=== PATIENT | female | born 1955 | race African-American/Black ===

== ENCOUNTER → 2016-07-08 | Outpatient (CLI) | payer MEDICARE, MEDICAID | LOC: SP 13:33 | PROVIDERS: ATTEND Physician Assistant | DX: M79.661 Pain in right lower leg (principal); M19.042 Primary osteoarthritis, left hand; M19.041 Primary osteoarthritis, right hand | CPT/HCPCS: 93971 ==

== ENCOUNTER 2016-12-26 11:44 | Emergency (ER) | payer MEDICARE, MEDICAID ==
--- NOTE | 2016-12-26 12:12 | ER Document Report ---
ED General - General Chief Complaint: Cough Stated Complaint: COUGH Time Seen by Provider: 12/26/16 11:58 Mode of Arrival: Ambulatory Information source: Patient Notes: 61-year-old female presents with complaints of a cough for day duration. Patient admits to fevers and chills. Patient denies any nausea vomiting or diarrhea. pt ntoes cough is non prodcutve, no sick contact. pt denies any any smoking hx admits to ear pain TRAVEL OUTSIDE OF THE [place] IN LAST 30 DAYS: No - HPI Onset: Other Onset/Duration: Persistent Quality of pain: Achy Severity: Mild Pain Level: 1 Associated symptoms: Chills, Nonproductive cough, Fever Exacerbated by: Coughing Relieved by: Denies Similar symptoms previously: No Recently seen / treated by doctor: No - Related Data Allergies/Adverse Reactions: acetaminophen [From Tylenol] Allergy (Verified 12/26/16 11:49) ibuprofen Allergy (Verified 12/26/16 11:49) naproxen Allergy (Verified 12/26/16 11:49) oxycodone Allergy (Verified 12/26/16 11:49) Past Medical History - Social History Smoking Status: Never Smoker Cigarette use (# per day): No Chew tobacco use (# tins/day): No Smoking Education Provided: No Family History: Reviewed & Not Pertinent Renal/ Medical History: Denies: Hx Peritoneal Dialysis Review of Systems - Review of Systems Notes: REVIEW OF SYSTEMS: CONSTITUTIONAL : admits ot fevers and chills EENT: admits to ear pain CARDIOVASCULAR: Denies chest pain. Denies palpitations or racing or irregular heart beat. Denies ankle edema. RESPIRATORY: admits to cough GASTROINTESTINAL: Denies abdominal pain or distention. Denies nausea, vomiting , or diarrhea. Denies blood in vomitus, stools, or per rectum. Denies black, tarry stools. Denies constipation. GENITOURINARY: Denies difficulty urinating, painful urination, burning, frequency, blood in urine, or discharge. FEMALE GENITOURINARY: Denies vaginal bleeding, heavy or abnormal periods, irregular periods. Denies vaginal discharge or odor. MUSCULOSKELETAL: Denies back or neck pain or stiffness. Denies joint pain or swelling. SKIN: Denies rash, lesions or sores. HEMATOLOGIC : Denies easy bruising or bleeding. LYMPHATIC: Denies swollen, enlarged glands. NEUROLOGICAL: Denies confusion or altered mental status. Denies passing out or loss of consciousness. Denies dizziness or lightheadedness. Denies headache. Denies weakness or paralysis or loss of use of either side. Denies problems with gait or speech. Denies sensory loss, numbness, or tingling. Denies seizures. PSYCHIATRIC: Denies anxiety or stress. Denies depression, suicidal ideation, or homicidal ideation. ALL OTHER SYSTEMS REVIEWED AND NEGATIVE. PHYSICAL EXAMINATION: GENERAL: Well-appearing, well-nourished and in no acute distress. HEAD: Atraumatic, normocephalic. EYES: Pupils equal round and reactive to light, extraocular movements intact, conjunctiva are normal. ENT: Nares patent, oropharynx clear without exudates. Moist mucous membranes. NECK: Normal range of motion, supple without lymphadenopathy LUNGS: Breath sounds clear to auscultation bilaterally and equal. No wheezes rales or rhonchi. HEART: Regular rate and rhythm without murmurs ABDOMEN: Soft, nontender, nondistended abdomen. No guarding, no rebound. No masses appreciated. Female : deferred Musculoskeletal: Normal range of motion, no pitting or edema. No cyanosis. NEUROLOGICAL: Cranial nerves grossly intact. Normal speech, normal gait. Normal sensory, motor exams PSYCH: Normal mood, normal affect. SKIN: Warm, Dry, normal turgor, no rashes or lesions noted. Dictation was performed using Mtime voice recognition software Physical Exam - Vital signs Vitals: Temp Pulse Resp BP Pulse Ox 97.5 F 79 20 117/73 98 12/26/16 11:51 12/26/16 11:51 12/26/16 11:51 12/26/16 11:51 12/26/16 11:51 Course - Re-evaluation Re-evalutation: 12/26/16 12:12 lab work imaging pending 12/26/16 13:23 xray and influenza were negative, I bleeive patients presentation is more related to a viral syndrome. Pt denies any chest pain, notes her symptoms are related to cough, denies any dvt or pe risk factors After performing a Medical Screening Examination, I estimate there is LOW risk for ACUTE CORONARY SYNDROME, RESPIRATORY FAILURE, SEPSIS OR MENINGITIS, thus I consider the discharge disposition reasonable. I have reevaluated this patient multiple times and no significant life threatening changes are noted. The patient and I have discussed the diagnosis and risks, and we agree with discharging home with close follow-up. We also discussed returning to the Emergency Department immediately if new or worsening symptoms occur. We have discussed the symptoms which are most concerning (e.g., changing or worsening pain, trouble swallowing or breathing, neck stiffness, fever) that necessitate immediate return. - Vital Signs Vital signs: Temp Pulse Resp BP Pulse Ox 97.5 F 79 20 117/73 98 12/26/16 11:51 12/26/16 11:51 12/26/16 11:51 12/26/16 11:51 12/26/16 11:51 - Diagnostic Test Radiology reviewed: Image reviewed, Reports reviewed Discharge - Discharge Clinical Impression: Viral URI, Bronchitis Condition: Stable Disposition: HOME, SELF-CARE Instructions: Upper Respiratory Illness ([facility]) Additional Instructions: Follow up with your physician tomorrow for further care or return to the ED IMMEDIATELY if symptoms worsen or new concerns occur. If you cannot afford to follow up with your primary care physician a list of low cost clinics have been provided at the end of your discharge papers as well.
--- NOTE | 2016-12-26 12:29 | RADIOLOGY REPORT (SQ) ---
EXAM DESCRIPTION: CHEST PA/LAT COMPLETED DATE/TIME: 12/26/2016 12:15 pm REASON FOR STUDY: cough COMPARISON: None. EXAM PARAMETERS: NUMBER OF VIEWS: two views TECHNIQUE: Digital Frontal and Lateral radiographic views of the chest acquired. RADIATION DOSE: NA LIMITATIONS: Patient has made a shallow inspiration. FINDINGS: LUNGS AND PLEURA: No opacities, masses or pneumothorax. No pleural effusion. MEDIASTINUM AND HILAR STRUCTURES: No masses or contour abnormalities. HEART AND VASCULAR STRUCTURES: Cardiac silhouette is at the upper limits of normal in size. Tortuous thoracic aorta is identified. BONES: No acute findings. HARDWARE: None in the chest. OTHER: No other significant finding. IMPRESSION: NO SIGNIFICANT RADIOGRAPHIC FINDING IN THE CHEST. TECHNICAL DOCUMENTATION: JOB ID: [id number] [email or web address]- All Rights Reserved
[2016-12-26 13:40] VITALS: BP 132/78
== END 2016-12-26 13:40 | disposition home or self-care (01) ==
LOC: ER 11:44
DX: J06.9 Acute upper respiratory infection, unspecified (principal); J40 Bronchitis, not specified as acute or chronic; R50.9 Fever, unspecified; Z88.6 Allergy status to analgesic agent
CPT/HCPCS: 71020; 87804; 99284

== ENCOUNTER 2017-07-18 16:29 | Emergency (ER) | payer MEDICARE, MEDICAID ==
[2017-07-18 17:52] LABS: ABSOLUTE LYMPHOCYTES (AUTO) 1.3 10^3/uL (0.5-4.7); ABSOLUTE MONOCYTES (AUTO) 0.3 10^3/uL (0.1-1.4); ABSOLUTE NEUT (AUTO) 3.3 10^3/uL (1.7-8.2); BASOPHILS % (AUTO) 0.7 % (0-2); EOSINOPHILS % (AUTO) 0.5 % (0-6); HEMATOCRIT 41.6 % (36.0-47.0); HEMOGLOBIN 13.4 g/dL (12.0-15.5); LYMPHOCYTES % (AUTO) 26.8 % (13-45); MEAN CORPUSCULAR HGB CONC 32.2 g/dL (32.0-36.0); MEAN CORPUSCULAR VOLUME 87 fl (80-97); MONOCYTES % (AUTO) 5.4 % (3-13); PLATELET COUNT 193 10^3/uL (150-450); RED BLOOD COUNT 4.78 10^6/uL (3.72-5.28); RED CELL DISTRIBUTION WIDTH 13.9 % (11.5-14.0); SEGMENTED NEUTROPHILS % (AUTO) 66.6 % (42-78); TOTAL CELLS COUNTED % (AUTO) 100 %
--- NOTE | 2017-07-18 18:03 | RADIOLOGY REPORT (SQ) ---
EXAM DESCRIPTION: CHEST 2 VIEWS COMPLETED DATE/TIME: 07/18/2017 5:48 pm REASON FOR STUDY: cough COMPARISON: 12/26/2016. EXAM PARAMETERS: NUMBER OF VIEWS: two views TECHNIQUE: Digital Frontal and Lateral radiographic views of the chest acquired. RADIATION DOSE: NA LIMITATIONS: none FINDINGS: LUNGS AND PLEURA: No opacities, masses or pneumothorax. No pleural effusion. MEDIASTINUM AND HILAR STRUCTURES: No masses or contour abnormalities. HEART AND VASCULAR STRUCTURES: Heart upper limits of normal size. No evidence for failure. BONES: No acute findings. HARDWARE: None in the chest. OTHER: No other significant finding. IMPRESSION: NO ACUTE RADIOGRAPHIC FINDING IN THE CHEST. TECHNICAL DOCUMENTATION: JOB ID: [id number] [employer]- All Rights Reserved Reading location - IP/workstation name: [email or web address]
[2017-07-18 18:13] LABS: ANION GAP 11 (5-19); BLOOD UREA NITROGEN 17 mg/dL (7-20); CALCIUM 9.7 mg/dL (8.4-10.2); CARBON DIOXIDE 25 mmol/L (22-30); CHLORIDE 105 mmol/L (98-107); GLUCOSE 84 mg/dL (75-110)
--- NOTE | 2017-07-18 18:37 | ER Document Report ---
ED General - General Chief Complaint: Headache Stated Complaint: HEADACHE/COUGH Time Seen by Provider: 07/18/17 17:01 Mode of Arrival: Ambulatory Information source: Patient Notes: Patient states for 1 week she has had a headache. It is constant throbbing radiates into her posterior neck. Nothing makes it better or worse. It is moderate. It has been intermittent. She also had cough and some congestion. TRAVEL OUTSIDE OF THE [place] IN LAST 30 DAYS: No - Related Data Allergies/Adverse Reactions: ibuprofen Allergy (Verified 07/18/17 16:30) naproxen Allergy (Verified 07/18/17 16:30) oxycodone Allergy (Verified 07/18/17 16:30) Past Medical History - Social History Smoking Status: Never Smoker Frequency of alcohol use: None Drug Abuse: None Family History: Reviewed & Not Pertinent Patient has suicidal ideation: No Patient has homicidal ideation: No - Past Medical History Cardiac Medical History: Reports: Hx Hypercholesterolemia, Hx Hypertension Pulmonary Medical History: Reports: Hx Asthma Neurological Medical History: Reports: Hx Seizures Renal/ Medical History: Denies: Hx Peritoneal Dialysis Past Surgical History: Reports: Hx Cholecystectomy Review of Systems - Review of Systems Constitutional: denies: Chills, Fever Cardiovascular: denies: Chest pain, Palpitations Respiratory: Cough. denies: Short of breath -: Yes All other systems reviewed and negative Physical Exam - Vital signs Vitals: Temp Pulse Resp BP Pulse Ox 98.2 F 79 16 124/55 L 97 07/18/17 16:35 07/18/17 16:35 07/18/17 16:35 07/18/17 16:35 07/18/17 16:35 Interpretation: Normal - General General appearance: Appears well, Alert - HEENT Head: Normocephalic, Atraumatic Eyes: Normal Pupils: PERRL - Respiratory Respiratory status: No respiratory distress Chest status: Nontender Breath sounds: Normal Chest palpation: Normal - Cardiovascular Rhythm: Regular Heart sounds: Normal auscultation Murmur: No - Abdominal Inspection: Normal Distension: No distension Bowel sounds: Normal Tenderness: Nontender Organomegaly: No organomegaly - Back Back: Normal, Nontender - Extremities General upper extremity: Normal inspection, Nontender, Normal color, Normal ROM , Normal temperature General lower extremity: Normal inspection, Nontender, Normal color, Normal ROM , Normal temperature, Normal weight bearing. No: Telma's sign - Neurological Neuro grossly intact: Yes Cognition: Normal Orientation: AAOx4 [place] Coma Scale Eye Opening: Spontaneous [place] Coma Scale Verbal: Oriented Tho Coma Scale Motor: Obeys Commands [place] Coma Scale Total: 15 Speech: Normal Motor strength normal: LUE, RUE, LLE, RLE Sensory: Normal - Psychological Associated symptoms: Normal affect, Normal mood - Skin Skin Temperature: Warm Skin Moisture: Dry Skin Color: Normal Course - Vital Signs Vital signs: Temp Pulse Resp BP Pulse Ox 98.2 F 79 16 124/55 L 97 07/18/17 16:35 07/18/17 16:35 07/18/17 16:35 07/18/17 16:35 07/18/17 16:35 - Laboratory Result Diagrams: 07/18/17 17:40 07/18/17 17:40 - Diagnostic Test Radiology reviewed: Image reviewed, Reports reviewed - I reviewed both views of the chest x-ray. As well as the radiology reading. Radiology results interpreted by me: 07/18/17 18:36 I reviewed both views of the patient's chest x-ray. I also reviewed the radiology reading. No evidence of infiltrate or edema. Discharge - Discharge Bad tableCondition: Stable Disposition: HOME, SELF-CARE Instructions: Viral Syndrome ([facility]) Prescriptions: Codeine/Promethazine HCl [Promethazine-Codeine Syrup] 10 ml PO Q4 PRN 5 Days #1 bottle PRN Reason: Referrals: SIDDHARTHA GAMEZ PA-C [Primary Care Provider] - Follow up as needed
[2017-07-18 19:48] VITALS: BP 153/101
== END 2017-07-18 19:02 | disposition home or self-care (01) ==
LOC: ER 16:29
DX: B34.9 Viral infection, unspecified (principal); R51 Headache; E78.00 Pure hypercholesterolemia, unspecified; I10 Essential (primary) hypertension; Z88.6 Allergy status to analgesic agent; Z90.49 Acquired absence of other specified parts of digestive tract
CPT/HCPCS: 36415; 71046; 80048; 85025; 99284

== ENCOUNTER 2017-09-24 13:30 | Emergency (ER) | payer MEDICARE, MEDICAID ==
[2017-09-24 13:36] VITALS: BP 127/60
[2017-09-24] MEDS ORDERED: ACETAMINOPHEN 325 MG TABLET PO ONE (14:18)
--- NOTE | 2017-09-24 14:27 | ER Document Report ---
ED ENT - General Chief Complaint: Ear Pain Stated Complaint: EAR PAIN/HEADACHE Time Seen by Provider: 09/24/17 13:45 Mode of Arrival: Ambulatory Information source: Patient Notes: 62-year-old female presented ED with complaint of bilateral ear pain with headache and sinus congestion. Patient states she has had a cold for over a week. But she is just developed the pain in her ears the headache. She is alert and oriented pupils equal and react to light speaking with full sentences , respirations regular and unlabored, and walk with a even steady gait. TRAVEL OUTSIDE OF THE [place] IN LAST 30 DAYS: No - HPI Patient complains to provider of: Ear problem, Nose problem, Other - Headache Onset: Other - Cough and cold symptoms have been for about a week the bilateral ear pain started last night headache started today Quality of pain: Achy, Dull Severity: Severe Pain Level: 5 Context: Recent Illness Location of pain: Ears, Nose, Sinus, Throat Associated symptoms: Ear pain, Headache, Runny nose, Sinus pain, Sinus drainage , Sore throat. denies: Fever Similar symptoms previously: Yes Recently seen / treated by doctor: No - Related Data Allergies/Adverse Reactions: ibuprofen Allergy (Verified 09/24/17 13:32) naproxen Allergy (Verified 09/24/17 13:32) oxycodone Allergy (Verified 09/24/17 13:32) Past Medical History - General Information source: Patient - Social History Smoking Status: Never Smoker Cigarette use (# per day): No Chew tobacco use (# tins/day): No Smoking Education Provided: No Frequency of alcohol use: None Drug Abuse: None Lives with: Parents Family History: Reviewed & Not Pertinent Patient has suicidal ideation: No Patient has homicidal ideation: No - Past Medical History Cardiac Medical History: Reports: Hx Hypercholesterolemia, Hx Hypertension Pulmonary Medical History: Reports: Hx Asthma EENT Medical History: Reports: None Neurological Medical History: Reports: Hx Seizures Endocrine Medical History: Reports: Hx Hypothyroidism Renal/ Medical History: Reports: None Malignancy Medical History: Reports: None GI Medical History: Reports: Hx Colonoscopy Musculoskeltal Medical History: Reports Hx Arthritis, Reports Hx Musculoskeletal Deformity, Reports Hx Musculoskeletal Trauma Skin Medical History: Reports None Psychiatric Medical History: Reports: None Infectious Medical History: Reports: None Past Surgical History: Reports: Hx Cholecystectomy - Immunizations Immunizations up to date: Yes Review of Systems - Review of Systems Constitutional: Recent illness EENT: Ear pain, Nose congestion, Nose discharge, Sinus pressure, Sinus discharge , Throat pain Cardiovascular: No symptoms reported Respiratory: Cough Gastrointestinal: No symptoms reported Genitourinary: No symptoms reported Female Genitourinary: No symptoms reported Musculoskeletal: No symptoms reported Skin: No symptoms reported Hematologic/Lymphatic: No symptoms reported Neurological/Psychological: Headaches -: Yes All other systems reviewed and negative Physical Exam - Vital signs Vitals: Temp Pulse Resp BP Pulse Ox 99.3 F 96 20 127/60 H 97 09/24/17 13:35 09/24/17 13:35 09/24/17 13:35 09/24/17 13:35 09/24/17 13:35 Interpretation: Normal - General General appearance: Appears well, Alert - HEENT Head: Normocephalic, Atraumatic Eyes: Normal Pupils: PERRL Visual kidd normal: Yes Ears: Normal External canal: Normal Tympanic membrane: Normal Sinus: Frontal, Maxillary, Tenderness Nasal: Purulent discharge, Swelling Mouth/Lips: Normal Pharynx: Post nasal drainage. No: Erythema, Exudate, Peritonsillar abscess, Retropharyngeal abscess, Tonsillar hypertrophy, Uvular edema, Potential airway comprom. Neck: Normal - Respiratory Respiratory status: No respiratory distress Chest status: Nontender Breath sounds: Nonproductive cough Chest palpation: Normal - Cardiovascular Rhythm: Regular Heart sounds: Normal auscultation Murmur: No - Abdominal Inspection: Normal Distension: No distension Bowel sounds: Normal Tenderness: Nontender Organomegaly: No organomegaly - Back Back: Normal, Nontender - Extremities General upper extremity: Normal inspection, Nontender, Normal color, Normal ROM , Normal temperature General lower extremity: Normal inspection, Nontender, Normal color, Normal ROM , Normal temperature, Normal weight bearing. 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 Patient does not have any otitis media or otitis externa or any sinus infection. Patient does have a viral upper respiratory infection. After performing a Medical Screening Examination, I estimate there is LOW risk for ACUTE CORONARY SYNDROME, RESPIRATORY FAILURE, SEPSIS OR MENINGITIS, thus I consider the discharge disposition reasonable. I have reevaluated this patient multiple times and no significant life threatening changes are noted. The patient and I have discussed the diagnosis and risks, and we agree with discharging home with close follow-up. We also discussed returning to the Emergency Department immediately if new or worsening symptoms occur. We have discussed the symptoms which are most concerning (e.g., changing or worsening pain, trouble swallowing or breathing, neck stiffness, fever) that necessitate immediate return. - Vital Signs Vital signs: Temp Pulse Resp BP Pulse Ox 99.3 F 96 20 127/60 H 97 09/24/17 13:35 09/24/17 13:35 09/24/17 13:35 09/24/17 13:35 09/24/17 13:35 Discharge - Discharge Clinical Impression: Otalgia of left ear URI (upper respiratory infection) Qualifiers: URI type: unspecified URI Qualified Code(s): J06.9 - Acute upper respiratory infection, unspecified Condition: Stable Disposition: HOME, SELF-CARE Additional Instructions: UPPER RESPIRATORY ILLNESS: You have a viral infection of the respiratory passages -- a "cold." This common infection causes nasal congestion, drainage, and often sore throat and cough. It is highly contagious. The disease usually lasts about 10 to 14 days. There is no "cure" for the viral infection -- it must run its course. If there is a complication, such as bacterial infection in the nose, sinuses, middle ear, or bronchial tubes, antibiotics may be required. The antibiotics won't affect the virus. Drink plenty of fluids. A humidifier may help. An expectorant medication or decongestant may make you more comfortable. Use acetaminophen or ibuprofen for fever or aches. See the doctor if fever persists over two days, if there is any significant worsening of your symptoms, or if you simply fail to improve as expected. USE OF ACETAMINOPHEN (Tylenol): Acetaminophen may be taken for pain relief or fever control. It's much safer than aspirin, offering a wider range of "safe" dosages. It is safe during . Some brand names are Tylenol, Panadol, Datril, Anacin 3, Tempra, and Liquiprin. Acetaminophen can be repeated every four hours. The following are maximum recommended dosages: >89 pounds or adults 650 mg to 900 mg Acetaminophen can be repeated every four hours. Maximum dose not to exceed 4000 mg a day. As you have a history of high blood pressure you cannot take normal over-the- counter cold medications as these will elevate your blood pressure. Ibuprofen can also elevate your blood pressure. You will need to ask the pharmacist for Coricidin HB for your cough and cold symptoms. Flonase is another medication that can help your cough and cold symptoms I will write you a prescription for that. Salt and soda solution gargles will help to remove the postnasal drip from the back yet throat and reduce your coughing and making more comfortable. Salt and soda solution 1 quart of water 1 tablespoon of salt 1 teaspoon of baking soda Mixed 3 ingredients together and boil for 1 minute Placed in a covered quart jar Use 1/2 ounce of cold solution to gargle 3 times a day FOLLOW-UP CARE: If you have been referred to a physician for follow-up care, call the physician s office for an appointment as you were instructed or within the next two days. If you experience worsening or a significant change in your symptoms, notify the physician immediately or return to the Emergency Department at any time for re-evaluation. Prescriptions: Fluticasone Propionate [Flonase Nasal Sanger 50 Mcg/[place]anger 16 gm] 1 spray NASL Q12 #1 inhaler Forms: Elevated Blood Pressure Referrals: SIDDHARTHA GAMEZ PA-C [Primary Care Provider] - Follow up in 3-5 days
== END 2017-09-24 14:36 | disposition home or self-care (01) ==
LOC: ER 13:30
DX: J06.9 Acute upper respiratory infection, unspecified (principal); H92.03 Otalgia, bilateral; E78.00 Pure hypercholesterolemia, unspecified; I10 Essential (primary) hypertension; Z88.6 Allergy status to analgesic agent; Z90.49 Acquired absence of other specified parts of digestive tract
CPT/HCPCS: 99282; A9270

== ENCOUNTER 2017-10-28 13:20 | Emergency (ER) | payer MEDICARE, MEDICAID ==
[2017-10-28 13:26] VITALS: BP 147/63
[2017-10-28 13:51] LABS: APPEARANCE,URINE CLEAR; BILIRUBIN,URINE NEGATIVE (NEGATIVE); COLOR,URINE YELLOW; GLUCOSE, URINE NEGATIVE (NEGATIVE); KETONES,URINE NEGATIVE (NEGATIVE); LEUKOCYTE ESTERASE,URINE TRACE (NEGATIVE); NITRITE,URINE NEGATIVE (NEGATIVE); PROTEIN,URINE NEGATIVE (NEGATIVE); URINE SPECIFIC GRAVITY 1.011; UROBILINOGEN,URINE NEGATIVE mg/dL (<2.0)
--- NOTE | 2017-10-28 14:08 | ER Document Report ---
ED Neck/Back Problem - General Chief Complaint: Back Pain Stated Complaint: BACK PAIN Time Seen by Provider: 10/28/17 13:57 Mode of Arrival: Ambulatory Information source: Patient Notes: Chief complaint: Right upper back pain History of complain:( obtained from----patient) 8 years old female presents today with right upper back pain since this morning, having postnasal drip and tickling and coughing on and off since this morning 2. Denies any difficulty in breathing wheezing. Denies any fever chills or other constitutional symptoms. Denies any precordial chest pain. Onset: Since this morning Duration: Gradual onset Severity: Mild to moderate Quality: Sharp to dull pain Context: Unknown Exacerbating factor and relieving factors: Change of position of the shoulder on the right side increases the pain. REVIEW OF SYSTEMS: CONSTITUTIONAL : Denies fever, chills, or sweats. Denies recent illness. EENT: Denies eye, ear, throat, or mouth pain or symptoms. Denies nasal or sinus congestion or discharge. Denies throat, tongue, or mouth swelling or difficulty swallowing. CARDIOVASCULAR: Denies chest pain. Denies palpitations or racing or irregular heart beat. Denies ankle edema. RESPIRATORY: Denies cough, cold, or chest congestion. Denies shortness of breath, difficulty breathing, or wheezing. GASTROINTESTINAL: Denies distention. Denies nausea, vomiting, or diarrhea. Denies blood in vomitus, stools, or per rectum. Denies black, tarry stools. Denies constipation. GENITOURINARY: Denies difficulty urinating, painful urination, burning, frequency, blood in urine, or discharge. FEMALE GENITOURINARY: Denies vaginal bleeding, heavy or abnormal periods, irregular periods. Denies vaginal discharge or odor. MUSCULOSKELETAL: Denies back or neck pain or stiffness. Denies joint pain or swelling. SKIN: Denies rash, lesions or sores. HEMATOLOGIC : Denies easy bruising or bleeding. LYMPHATIC: Denies swollen, enlarged glands. NEUROLOGICAL: Denies confusion or altered mental status. Denies passing out or loss of consciousness. Denies dizziness or lightheadedness. Denies headache. Denies weakness or paralysis or loss of use of either side. Denies problems with gait or speech. Denies sensory loss, numbness, or tingling. Denies seizures. PSYCHIATRIC: Denies anxiety or stress. Denies depression, suicidal ideation, or homicidal ideation. ALL OTHER SYSTEMS REVIEWED AND NEGATIVE. PHYSICAL EXAMINATION: GENERAL: Well-appearing, well-nourished and in no acute distress. HEAD: Atraumatic, normocephalic. EYES: Pupils equal round and reactive to light, extraocular movements intact, conjunctiva are normal. ENT: Nares patent, oropharynx clear without exudates. Moist mucous membranes. NECK: Normal range of motion, supple without lymphadenopathy LUNGS: Breath sounds clear to auscultation bilaterally and equal. No wheezes rales or rhonchi. HEART: Regular rate and rhythm without murmurs ABDOMEN: Soft, nontender, nondistended abdomen. No guarding, no rebound. No masses appreciated. Examination of genitals-deferred Musculoskeletal: Sharp tenderness noted over the right shoulder region particularly paraspinal muscles of the thoracic region on the right side as well as scapular muscles. NEUROLOGICAL: Cranial nerves grossly intact. Normal speech, normal gait. Normal sensory, motor exams PSYCH: Normal mood, normal affect. SKIN: Warm, Dry, normal turgor, no rashes or lesions noted. Dictation was performed using [employer] voice recognition software TRAVEL OUTSIDE OF THE [place] IN LAST 30 DAYS: No - HPI Notes: Dictated - Related Data Allergies/Adverse Reactions: ibuprofen Allergy (Verified 10/28/17 13:53) naproxen Allergy (Verified 10/28/17 13:53) oxycodone Allergy (Verified 10/28/17 13:53) Past Medical History - General Information source: Patient - Social History Smoking Status: Never Smoker Cigarette use (# per day): No Chew tobacco use (# tins/day): No Smoking Education Provided: No Frequency of alcohol use: Rare Drug Abuse: None Lives with: Family Family History: Reviewed & Not Pertinent - Past Medical History Cardiac Medical History: Reports: Hx Hypercholesterolemia, Hx Hypertension Pulmonary Medical History: Reports: Hx Asthma Neurological Medical History: Reports: Hx Seizures Endocrine Medical History: Reports: Hx Hypothyroidism Renal/ Medical History: Denies: Hx Peritoneal Dialysis GI Medical History: Reports: Hx Colonoscopy Musculoskeletal Medical History: Reports Hx Arthritis, Reports Hx Musculoskeletal Deformity, Reports Hx Musculoskeletal Trauma Past Surgical History: Reports: Hx Cholecystectomy - Immunizations Immunizations up to date: Yes Review of Systems - Review of Systems Notes: Dictated Physical Exam - Vital signs Vitals: Temp Pulse Resp BP Pulse Ox 97.6 F 76 18 147/63 H 98 10/28/17 13:25 10/28/17 13:25 10/28/17 13:25 10/28/17 13:25 10/28/17 13:25 - Notes Notes: Dictated Course - Vital Signs Vital signs: Temp Pulse Resp BP Pulse Ox 97.6 F 76 18 147/63 H 98 10/28/17 13:25 10/28/17 13:25 10/28/17 13:25 10/28/17 13:25 10/28/17 13:25 - Laboratory Laboratory results interpreted by me: 10/28/17 13:28 Ur Leukocyte Esterase TRACE H Discharge - Discharge Clinical Impression: Post-nasal drip, Upper back pain on right side Condition: Fair Disposition: HOME, SELF-CARE Instructions: Ice Packs ([facility]), Muscle Strain ([facility]) Prescriptions: Baclofen [Baclofen 10 mg Tablet] 10 mg PO TID #30 tab Prednisone 20 mg PO DAILY #5 tablet Referrals: SIDDHARTHA GAMEZ PA-C [Primary Care Provider] - Follow up as needed
== END 2017-10-28 14:18 | disposition home or self-care (01) ==
LOC: ER 13:20
DX: M54.89 Other dorsalgia (principal); R09.82 Postnasal drip; R05 Cough; I10 Essential (primary) hypertension; J45.909 Unspecified asthma, uncomplicated; Z88.6 Allergy status to analgesic agent; Z88.5 Allergy status to narcotic agent; Z88.8 Allergy status to other drugs, medicaments and biological substances
CPT/HCPCS: 81001; 99283

== ENCOUNTER 2017-12-25 13:28 | Emergency (ER) | payer MEDICARE, MEDICAID ==
--- NOTE | 2017-12-25 15:41 | ER Document Report ---
ED Medical Screen (RME) - General Chief Complaint: Headache >24 hrs old Stated Complaint: HEAD/NECK PAIN Time Seen by Provider: 12/25/17 15:39 Notes: Patient says that she is having a severe headache on the left side of her head that began last night while she was sitting in her house. She says it feels like a cinder block on her head. Pain goes down the back of her neck and she is having blurred vision in both eyes. Has never had this before. Denies any nausea or vomiting. No loss of consciousness. No recent illness and no fevers. Patient has a history of seizures since she was a little child. TRAVEL OUTSIDE OF THE [place] IN LAST 30 DAYS: No - Related Data Allergies/Adverse Reactions: aspirin [Aspirin] Allergy (Mild, Verified 12/25/17 15:33) Hives metaxalone [From Skelaxin] Allergy (Mild, Verified 12/25/17 15:33) Hallucinations morphine [Morphine] Allergy (Mild, Verified 12/25/17 15:33) Hallucinations oxycodone HCl [From Percocet] Allergy (Mild, Verified 12/25/17 15:33) Hallucinations ibuprofen Allergy (Verified 12/25/17 15:33) naproxen Allergy (Verified 12/25/17 15:33) oxycodone Allergy (Verified 12/25/17 15:33) Past Medical History - Social History Chew tobacco use (# tins/day): No Frequency of alcohol use: None Drug Abuse: None - Past Medical History Cardiac Medical History: Reports: Hx Hypercholesterolemia, Hx Hypertension - medicated Pulmonary Medical History: Reports: Hx Asthma - medicated prn, Hx Bronchitis Neurological Medical History: Reports: Hx Migraine, Hx Seizures Endocrine Medical History: Reports: Hx Hypothyroidism Renal/ Medical History: Denies: Hx Peritoneal Dialysis GI Medical History: Reports: Hx Colonoscopy, Hx Endoscopy Musculoskeltal Medical History: Reports Hx Arthritis, Reports Hx Musculoskeletal Deformity, Reports Hx Musculoskeletal Trauma Past Surgical History: Reports: Hx Cholecystectomy - Immunizations Immunizations up to date: Yes Hx Diphtheria, Pertussis, Tetanus Vaccination: Yes Physical Exam - Vital signs Vitals: Temp Pulse Resp BP Pulse Ox 97.4 F 69 16 143/67 H 100 12/25/17 14:08 12/25/17 14:08 12/25/17 14:08 12/25/17 14:08 12/25/17 14:08 Course - Vital Signs Vital signs: Temp Pulse Resp BP Pulse Ox 97.4 F 69 16 143/67 H 100 12/25/17 14:08 12/25/17 14:08 12/25/17 14:08 12/25/17 14:08 12/25/17 14:08 Doctor's Discharge - Discharge Referrals: SIDDHARTHA GAMEZ PA-C [Primary Care Provider] - Follow up as needed
[2017-12-25 16:44] LABS: ABSOLUTE EOSINOPHILS # (AUTO) 0.1 10^3/uL (0.0-0.6); ABSOLUTE LYMPHOCYTES (AUTO) 1.3 10^3/uL (0.5-4.7); ABSOLUTE MONOCYTES (AUTO) 0.2 10^3/uL (0.1-1.4); ABSOLUTE NEUT (AUTO) 1.7 10^3/uL (1.7-8.2); BASOPHILS % (AUTO) 0.8 % (0-2); EOSINOPHILS % (AUTO) 1.7 % (0-6); HEMATOCRIT 42.5 % (36.0-47.0); HEMOGLOBIN 13.9 g/dL (12.0-15.5); LYMPHOCYTES % (AUTO) 40.1 % (13-45); MEAN CORPUSCULAR HEMOGLOBIN 28.1 pg (27.0-33.4); MEAN CORPUSCULAR HGB CONC 32.7 g/dL (32.0-36.0); MEAN CORPUSCULAR VOLUME 86 fl (80-97); MONOCYTES % (AUTO) 5.3 % (3-13); PLATELET COUNT 195 10^3/uL (150-450); RED BLOOD COUNT 4.94 10^6/uL (3.72-5.28); RED CELL DISTRIBUTION WIDTH 14.2 % (11.5-14.0); SEGMENTED NEUTROPHILS % (AUTO) 52.1 % (42-78); TOTAL CELLS COUNTED % (AUTO) 100 %; WHITE BLOOD COUNT 3.3 10^3/uL (4.0-10.5)
--- NOTE | 2017-12-25 16:59 | RADIOLOGY REPORT (SQ) ---
EXAM DESCRIPTION: CT HEAD WITHOUT COMPLETED DATE/TIME: 12/25/2017 4:52 pm REASON FOR STUDY: Left sided headache with pain down the neck COMPARISON: None. TECHNIQUE: Axial images acquired through the brain without intravenous contrast. Images reviewed wi th bone, brain and subdural windows. Additional sagittal and coronal reconstructions were generated. Images stored on PACS. All CT scanners at this facility use dose modulation, iterative reconstruction, and/or weight based d osing when appropriate to reduce radiation dose to as low as reasonably achievable (ALARA). [facility]: Dose Right [facility]: CareDose [facility]: Dose Right [facility]: Teradose 4D [facility]: [employer] RADIATION DOSE: CT Rad equipment meets quality standard of care and radiation dose reduction techniq ues were employed. CTDIvol: 53.2 mGy. DLP: 1070 mGy-cm. mGy. LIMITATIONS: None. FINDINGS: VENTRICLES: Normal size and contour. CEREBRUM: No masses. No hemorrhage. No midline shift. No evidence for acute infarction. Normal gra y/white matter differentiation. No areas of low density in the white matter. CEREBELLUM: No masses. No hemorrhage. No alteration of density. No evidence for acute infarction. EXTRAAXIAL SPACES: No fluid collections. No masses. ORBITS AND GLOBE: No intra- or extraconal masses. Normal contour of globe without masses. CALVARIUM: No fracture. PARANASAL SINUSES: No fluid or mucosal thickening. SOFT TISSUES: No mass or hematoma. OTHER: No other significant finding. IMPRESSION: NORMAL BRAIN CT WITHOUT CONTRAST. EVIDENCE OF ACUTE STROKE: NO. COMMENT: Quality ID # [id number]: Final reports with documentation of one or more dose reduction techniques (e.g., Automated exposure control, adjustment of the mA and/or kV according to patient size, use of iterative reconstruction technique) TECHNICAL DOCUMENTATION: JOB ID: [id number] [employer]- All Rights Reserved Reading location - IP/workstation name: [email or web address]
[2017-12-25 17:10] LABS: ALANINE AMINOTRANSFERASE 16 U/L (9-52); ALBUMIN 4.2 g/dL (3.5-5.0); ALKALINE PHOSPHATASE 108 U/L (38-126); ANION GAP 10 (5-19); ASPARTATE AMINO TRANSFERASE 19 U/L (14-36); BILIRUBIN,DIRECT 0.3 mg/dL (0.0-0.4); BILIRUBIN,TOTAL 0.3 mg/dL (0.2-1.3); BLOOD UREA NITROGEN 13 mg/dL (7-20); CALCIUM 9.7 mg/dL (8.4-10.2); CARBON DIOXIDE 26 mmol/L (22-30); CHLORIDE 105 mmol/L (98-107); GLUCOSE 72 mg/dL (75-110); POTASSIUM 4.3 mmol/L (3.6-5.0); SODIUM 141.1 mmol/L (137-145); TOTAL PROTEIN 7.5 g/dL (6.3-8.2)
[2017-12-25] MEDS ORDERED: PROCHLORPERAZINE EDISYLATE INJ 10 MG/2 ML VIAL IV ONE (20:11)
[2017-12-25] MEDS ORDERED: DIPHENHYDRAMINE HCL 50 MG/ML VIAL IV ONE (20:11)
[2017-12-25] MEDS ORDERED: FENTANYL CITRATE INJ/PF 100 MCG/2 ML AMPUL IV ONE (20:12)
--- NOTE | 2017-12-25 20:18 | ER Document Report ---
ED General - General Chief Complaint: Headache >24 hrs old Stated Complaint: HEAD/NECK PAIN Time Seen by Provider: 12/25/17 15:39 TRAVEL OUTSIDE OF THE [place] IN LAST 30 DAYS: No - HPI Notes: Patient is a 62-year-old female with a history of chronic pain, migraine headaches, and hypertension who presents to the ED complaining of left sided neck and left upper back pain with associated left-sided headache that will radiate up to her left eye. Patient states that she has had some blurring of her vision primarily to the left eye with association of the pain. Patient states that she has had this pain for the last 2 days and has remained the same. Patient states that she has had pain similar to this in the past in regards to her migraine, but states that this 1 is lingering longer than usual. She is still eating and drinking without any difficulties. She is urinating normally and having normal bowel movements. Patient states that it did not start suddenly and was not a thunderclap. Denies any recent illness, fever, head injury, neck stiffness, changes in speech/mentation/hearing, URI, sore throat, chest pain, palpitations, syncope, cough, shortness of breath, wheeze, dyspnea, abdominal pain, nausea/vomiting/diarrhea, urinary retention, dysuria, hematuria, loss of control of bowel or bladder, numbness/tingling, saddle anesthesia, muscle paralysis/weakness, or rash. - Related Data Allergies/Adverse Reactions: aspirin [Aspirin] Allergy (Mild, Verified 12/25/17 15:33) Hives metaxalone [From Skelaxin] Allergy (Mild, Verified 12/25/17 15:33) Hallucinations morphine [Morphine] Allergy (Mild, Verified 12/25/17 15:33) Hallucinations oxycodone HCl [From Percocet] Allergy (Mild, Verified 12/25/17 15:33) Hallucinations ibuprofen Allergy (Verified 12/25/17 15:33) naproxen Allergy (Verified 12/25/17 15:33) oxycodone Allergy (Verified 12/25/17 15:33) Past Medical History - Social History Smoking Status: Never Smoker Chew tobacco use (# tins/day): No Frequency of alcohol use: None Drug Abuse: None Family History: Arthritis, CVA, DM, Hypertension, Reviewed & Not Pertinent, Thyroid Disfunction Patient has suicidal ideation: No Patient has homicidal ideation: No - Past Medical History Cardiac Medical History: Reports: Hx Hypercholesterolemia, Hx Hypertension - medicated Pulmonary Medical History: Reports: Hx Asthma - medicated prn, Hx Bronchitis Neurological Medical History: Reports: Hx Migraine, Hx Seizures Endocrine Medical History: Reports: Hx Hypothyroidism Renal/ Medical History: Denies: Hx Peritoneal Dialysis GI Medical History: Reports: Hx Colonoscopy, Hx Endoscopy Musculoskeletal Medical History: Reports Hx Arthritis, Reports Hx Musculoskeletal Deformity, Reports Hx Musculoskeletal Trauma Past Surgical History: Reports: Hx Cholecystectomy - Immunizations Immunizations up to date: Yes Hx Diphtheria, Pertussis, Tetanus Vaccination: Yes Review of Systems - Review of Systems -: Yes All other systems reviewed and negative Physical Exam - Vital signs Vitals: Temp Pulse Resp BP Pulse Ox 97.4 F 69 16 143/67 H 100 12/25/17 14:08 12/25/17 14:08 12/25/17 14:08 12/25/17 14:08 12/25/17 14:08 - Notes Notes: PHYSICAL EXAMINATION: GENERAL: Well-appearing, well-nourished and in no acute distress. A&Ox4. Answers questions appropriately. HEAD: Atraumatic, normocephalic. No bony tenderness. No ecchymosis. EYES: Pupils equal round and reactive to light, extraocular movements intact, sclera anicteric, conjunctiva are normal. No nystagmus. vis kidd intact. ENT: EAC clear b/l. TM's intact b/l without erythema, fluid, or perforation. Nares patent and without discharge. oropharynx clear without exudates. No tonsilar hypertrophy or erythema. Moist mucous membranes. No sinus tenderness. NECK: Normal range of motion, supple without lymphadenopathy. No rigidity/ meningismus. No midline tenderness. Kernig/brudzinski neg. + tenderness to the left c-paraspinal mm and to the left trapezius mm, correlates with pain described. LUNGS: Breath sounds clear to auscultation bilaterally and equal. No wheezes rales or rhonchi. HEART: Regular rate and rhythm without murmurs, rubs, gallops. ABDOMEN: Soft, nontender, nondistended abdomen. No guarding, no rebound. Normal bowel sounds present. No CVA tenderness bilaterally. Musculoskeletal: Ext b/l: FROM to passive/active. Strength 5+/5. No deficits noted. No bony tenderness of extremities. Extremities: No cyanosis, clubbing, or edema b/l. Peripheral pulses 2+. Capillary refill less than 2 seconds. NEUROLOGICAL: NIH 0. GCS 15. Cranial nerves grossly intact. Normal speech, normal gait. Normal sensory, motor exams. Reflexes 2+ b/l. CAYETANO's negative. Pronator drift negative. Heel/berg, finger/nose wnl. PSYCH: Normal mood, normal affect. SKIN: Warm, Dry, normal turgor, no rashes or lesions noted. Course - Re-evaluation Re-evalutation: 12/25/17 22:26 Patient is an afebrile, well-hydrated, 62-year-old female who presents to the ED with a left-sided headache and muscular pain in the neck and trapezius muscle on the left side. Vitals are acceptable without any significant tachycardia, tachypnea, or hypoxia. PE is otherwise unremarkable for any focal neurological deficits. Patient's discomfort in her back and neck are reproducible upon palpation. CT scan of the head as well as her blood work was unremarkable for any acute pathology. Patient is tolerating p.o. without any difficulties and is nontoxic-appearing. NIH 0, GCS 15, cranial nerves grossly intact. Patient has not had any associated dizziness or vertigo. I did offer the patient IV medications for her headache, but nurses were unsuccessful in obtaining an IV so patient would not allow for another attempt to be performed. We then offered her IM medications which she declined as well. Patient states that she just wants to go home at this time. Patient is standing at the nurses station stating that she does not get her discharge papers and 5 minutes she will be walking out. I did discuss this with the patient and she is declining any further treatment at this time. I did order Tylenol to see if the nurse can get this before she leaves. Patient states that she has not had any worsening discomfort or pain. She has had symptoms for 2 days straight now. Kernig and Brudzinski were negative. No further labs or imaging warranted at this time based on H&P. Low suspicion for any acute glaucoma, temporal arteritis, meningitis, intracranial hemorrhage, ischemic stroke, or fracture at this time. Patient is aware that his condition can change from initial presentation and that he needs to monitor symptoms closely for any acute changes. I also reviewed with patient that if her symptoms should worsen that she needs to come back to get a spinal tap which she declined today as well. Advised patient to recheck with her PCM tomorrow. Return to the ED with any worsening/concerning symptoms otherwise as reviewed in discharge. Patient is in agreement. - Vital Signs Vital signs: Temp Pulse Resp BP Pulse Ox 97.6 F 59 L 18 155/94 H 100 12/25/17 18:45 12/25/17 18:45 12/25/17 18:45 12/25/17 18:45 12/25/17 18:45 - Laboratory Result Diagrams: 12/25/17 16:33 12/25/17 16:33 Laboratory results interpreted by me: 12/25/17 12/25/17 16:33 16:33 WBC 3.3 L RDW 14.2 H Glucose 72 L Discharge - Discharge Clinical Impression: Headache Qualifiers: Headache type: unspecified Headache chronicity pattern: acute headache Intractability: not intractable Qualified Code(s): R51 - Headache Condition: Stable Disposition: HOME, SELF-CARE Instructions: Headache ([facility]) Additional Instructions: Rest, ice, cool compresses Use crutches/splint/sling as directed Tylenol/ibuprofen as needed Maintain fluid intake light stretches daily Moist heat and massage may help F/u with your PCP tomorrow for a recheck Return to the ED with any worsening symptoms and/or development of fever, headache, changes in behavior/mentation/vision/speech, chest pain, palpitations , syncope, shortness of breath, trouble breathing, abdominal pain, n/v/d, blood in stool/urine, loss of control of bowel/bladder, urinary retention, muscle weakness/paralysis, saddle anesthesia, numbness/tingling, or other worsening symptoms that are concerning to you. Forms: Elevated Blood Pressure Referrals: SIDDHARTHA GAMEZ PA-C [Primary Care Provider] - Follow up tomorrow
[2017-12-25] MEDS ORDERED: FENTANYL CITRATE INJ/PF 100 MCG/2 ML AMPUL IM ONE (21:46)
[2017-12-25] MEDS ORDERED: DIPHENHYDRAMINE HCL 50 MG/ML VIAL IM ONE (21:46)
[2017-12-25] MEDS ORDERED: PROCHLORPERAZINE EDISYLATE INJ 10 MG/2 ML VIAL IM ONE (21:46)
[2017-12-25] MEDS ORDERED: ACETAMINOPHEN 325 MG TABLET PO ONE (22:28)
[2017-12-25 22:39] VITALS: BP 141/77
== END 2017-12-25 22:39 | disposition home or self-care (01) ==
LOC: ER 13:28
DX: R51 Headache (principal); I10 Essential (primary) hypertension; M54.2 Cervicalgia; M54.89 Other dorsalgia; H53.8 Other visual disturbances; J45.909 Unspecified asthma, uncomplicated; Z88.6 Allergy status to analgesic agent; Z88.8 Allergy status to other drugs, medicaments and biological substances; Z88.5 Allergy status to narcotic agent
CPT/HCPCS: 99284; 36415; 85025; 80053; 70450; A9270; J1200; J3010; J0780

== ENCOUNTER 2018-04-16 15:22 | Emergency (ER) | payer MEDICARE, MEDICAID ==
[2018-04-16] MEDS ORDERED: ASPIRIN 325 MG TABLET PO ONE (15:52)
--- NOTE | 2018-04-16 15:56 | ER Document Report ---
ED Medical Screen (RME) - General Chief Complaint: Weakness Stated Complaint: WEAKNESS Time Seen by Provider: 04/16/18 15:52 Mode of Arrival: Ambulatory Information source: Patient TRAVEL OUTSIDE OF THE [place] IN LAST 30 DAYS: No - HPI Patient complains to provider of: cp Onset: This morning - pt with L interscapular pain radiating down L shoulder starting earlier today. Took 81 mg ASA earlier - Related Data Allergies/Adverse Reactions: aspirin [Aspirin] Allergy (Mild, Verified 04/16/18 15:45) Hives metaxalone [From Skelaxin] Allergy (Mild, Verified 04/16/18 15:45) Hallucinations morphine [Morphine] Allergy (Mild, Verified 04/16/18 15:45) Hallucinations oxycodone HCl [From Percocet] Allergy (Mild, Verified 04/16/18 15:45) Hallucinations ibuprofen Allergy (Verified 04/16/18 15:45) naproxen Allergy (Verified 04/16/18 15:45) oxycodone Allergy (Verified 04/16/18 15:45) Past Medical History - Social History Chew tobacco use (# tins/day): No Frequency of alcohol use: None Drug Abuse: None - Past Medical History Cardiac Medical History: Reports: Hx Hypercholesterolemia, Hx Hypertension - medicated Pulmonary Medical History: Reports: Hx Asthma - medicated prn, Hx Bronchitis Neurological Medical History: Reports: Hx Migraine, Hx Seizures Endocrine Medical History: Reports: Hx Hypothyroidism Renal/ Medical History: Denies: Hx Peritoneal Dialysis GI Medical History: Reports: Hx Colonoscopy, Hx Endoscopy Musculoskeltal Medical History: Reports Hx Arthritis, Reports Hx Musculoskeletal Deformity, Reports Hx Musculoskeletal Trauma Past Surgical History: Reports: Hx Cholecystectomy - Immunizations Immunizations up to date: Yes Hx Diphtheria, Pertussis, Tetanus Vaccination: Yes Physical Exam - Vital signs Vitals: Temp Pulse Resp BP Pulse Ox 97.4 F 67 14 152/70 H 100 04/16/18 15:27 04/16/18 15:27 04/16/18 15:27 04/16/18 15:27 04/16/18 15:27 Course - Vital Signs Vital signs: Temp Pulse Resp BP Pulse Ox 97.4 F 67 14 152/70 H 100 04/16/18 15:27 04/16/18 15:27 04/16/18 15:27 04/16/18 15:27 04/16/18 15:27 Doctor's Discharge - Discharge Referrals: SIDDHARTHA GAMEZ PA-C [Primary Care Provider] - Follow up as needed
--- NOTE | 2018-04-16 16:50 | EKG REPORT ---
SEVERITY:- ABNORMAL ECG - SINUS RHYTHM NONSPECIFIC ST-T CHANGES- INFERIOR LEADS , MILD : Confirmed by: Dennis Anders MD 16-Apr-2018 16:48:51
--- NOTE | 2018-04-16 16:55 | ER Document Report ---
ED General - General Chief Complaint: Weakness Stated Complaint: WEAKNESS Time Seen by Provider: 04/16/18 15:52 Mode of Arrival: Ambulatory TRAVEL OUTSIDE OF THE [place] IN LAST 30 DAYS: No - HPI Notes: Patient is a 63-year-old female that [facility] of left-sided back and arm pain. Patient states for the last few days she has had a sharp pain in her left scapular region that radiates into her left arm. The pain is sharp in nature. It usually was lasting for a few hours at a time and then would resolve until last night. She states the pain is been constant since last night. She reports associated dyspnea with exertion and states her arm pain gets worse when she is up walking around. She states intermittently she will get a pain in her chest which is mild compared to her back and arm. She denies any shortness of breath at rest, lightheadedness, palpitations, nausea, vomiting and diaphoresis. She states she had a stress test 3 or 4 years ago that was normal. She denies history of cardiac disease. She denies any recent surgery travel or immobilization or cancer. Past Medical History: Sciatica, seizures, hypothyroidism, hypertension, migraines Past Surgical History: Cholecystectomy Social History: Denies drugs alcohol and tobacco Family History: Reviewed and noncontributory for presenting illness Allergies: Reviewed, see documented allergy list. REVIEW OF SYSTEMS: CONSTITUTIONAL : No fever No chills No diaphoresis No recent illness EENT: No vision changes No congestion No sore throat CARDIOVASCULAR: chest pain No palpitations RESPIRATORY: shortness of breath No cough No difficulty breathing GASTROINTESTINAL: No abdominal pain No nausea No vomiting No diarrhea GENITOURINARY: No dysuria No hematuria No difficulty urinating MUSCULOSKELETAL: back pain No leg pain arm pain SKIN: No rashes No lesions LYMPHATIC: No swollen, enlarged glands. NEUROLOGICAL: No lightheadedness No headache No weakness No paresthesias PSYCHIATRIC: No anxiety No depression PHYSICAL EXAMINATION: Vital signs reviewed, nursing noted reviewed. GENERAL: Well-appearing, obese and in no acute distress. HEAD: Atraumatic, normocephalic. EYES: Eyes appear normal, extraocular movements intact, sclera anicteric, conjunctiva are normal. ENT: nares patent, oropharynx clear without exudates. Moist mucous membranes. NECK: Normal range of motion, supple without lymphadenopathy LUNGS: Breath sounds clear to auscultation bilaterally and equal. No wheezes rales or rhonchi. HEART: Regular rate and rhythm without murmurs, +2/4 bilateral radial pulse ABDOMEN: Soft, nontender, normoactive bowel sounds. No rebound, guarding, or rigidity. No masses appreciated. EXTREMITIES: Nontender, good range of motion, no pitting or edema. Normal left shoulder and elbow exam Back: Left thoracic paraspinal muscle tenderness, no midline spinal tenderness in the thoracic or lumbar spine. No scapular tenderness. NEUROLOGICAL: No focal neurological deficits. Moves all extremities spontaneously Motor and sensory grossly intact on exam. PSYCH: Normal mood, normal affect. SKIN: Warm, Dry, normal turgor, no rashes or lesions noted on exposed skin - Related Data Allergies/Adverse Reactions: metaxalone [From Skelaxin] Allergy (Mild, Verified 04/16/18 15:45) Hallucinations morphine [Morphine] Allergy (Mild, Verified 04/16/18 15:45) Hallucinations oxycodone HCl [From Percocet] Allergy (Mild, Verified 04/16/18 15:45) Hallucinations ibuprofen Allergy (Verified 04/16/18 15:45) naproxen Allergy (Verified 04/16/18 15:45) oxycodone Allergy (Verified 04/16/18 15:45) Past Medical History - General Information source: Patient - Social History Smoking Status: Never Smoker Chew tobacco use (# tins/day): No Frequency of alcohol use: None Drug Abuse: None Family History: Arthritis, CVA, DM, Hypertension, Reviewed & Not Pertinent, Thyroid Disfunction Patient has suicidal ideation: No Patient has homicidal ideation: No - Past Medical History Cardiac Medical History: Reports: Hx Hypercholesterolemia, Hx Hypertension - medicated Pulmonary Medical History: Reports: Hx Asthma - medicated prn, Hx Bronchitis Neurological Medical History: Reports: Hx Migraine, Hx Seizures Endocrine Medical History: Reports: Hx Hypothyroidism Renal/ Medical History: Denies: Hx Peritoneal Dialysis GI Medical History: Reports: Hx Colonoscopy, Hx Endoscopy Musculoskeletal Medical History: Reports Hx Arthritis, Reports Hx Musculoskeletal Deformity, Reports Hx Musculoskeletal Trauma Past Surgical History: Reports: Hx Cholecystectomy - Immunizations Immunizations up to date: Yes Hx Diphtheria, Pertussis, Tetanus Vaccination: Yes Physical Exam - Vital signs Vitals: Temp Pulse Resp BP Pulse Ox 97.4 F 67 14 152/70 H 100 04/16/18 15:27 04/16/18 15:27 04/16/18 15:27 04/16/18 15:27 04/16/18 15:27 Course - Re-evaluation Re-evalutation: 04/16/18 17:05 Vitals reviewed. Nursing notes reviewed. Patient received aspirin in triage. She states that did not change her symptoms. She is denying any current chest pain. Her EKG shows no acute ischemic changes. Patient has an extensive list of allergies to pain medication and states she does not want any further pain medicine at this time. 04/16/18 20:17 Patient reevaluated. She is still hemodynamic stable. Her d-dimer is negative and I do not suspect pulmonary embolism or dissection with her negative d-dimer. She has no mediastinal widening on chest x-ray. Patient had 2- troponins in the emergency room. Her pain has been constant without resolution. It may be more musculoskeletal in nature. She will follow closely with primary care. She will return for new or worsening symptoms. Laboratory 04/16/18 04/16/18 04/16/18 16:50 16:50 16:50 WBC 3.2 L RBC 4.54 Hgb 13.1 Hct 39.7 MCV 88 MCH 28.9 MCHC 33.0 RDW 14.3 H Plt Count 217 Seg Neutrophils % 48.8 Lymphocytes % 41.1 Monocytes % 7.8 Eosinophils % 0.6 Basophils % 1.7 Absolute Neutrophils 1.6 L Absolute Lymphocytes 1.3 Absolute Monocytes 0.2 Absolute Eosinophils 0.0 Absolute Basophils 0.1 D-Dimer Sodium 141.1 Potassium 4.3 Chloride 105 Carbon Dioxide 30 Anion Gap 6 BUN 13 Creatinine 0.77 Est GFR ( Amer) > 60 Est GFR (Non-Af Amer) > 60 Glucose 86 Calcium 9.0 Total Bilirubin 0.4 Direct Bilirubin 0.4 Neonat Total Bilirubin Not Reportable Neonat Direct Bilirubin Not Reportable Neonat Indirect Bili Not Reportable AST 37 H ALT 9 Alkaline Phosphatase 113 Creatine Kinase 55 CK-MB (CK-2) 0.25 Troponin I < 0.012 Total Protein 7.4 Albumin 4.4 04/16/18 04/16/18 16:50 19:30 WBC RBC Hgb Hct MCV MCH MCHC RDW Plt Count Seg Neutrophils % Lymphocytes % Monocytes % Eosinophils % Basophils % Absolute Neutrophils Absolute Lymphocytes Absolute Monocytes Absolute Eosinophils Absolute Basophils D-Dimer < 0.27 Sodium Potassium Chloride Carbon Dioxide Anion Gap BUN Creatinine Est GFR ( Amer) Est GFR (Non-Af Amer) Glucose Calcium Total Bilirubin Direct Bilirubin Neonat Total Bilirubin Neonat Direct Bilirubin Neonat Indirect Bili AST ALT Alkaline Phosphatase Creatine Kinase CK-MB (CK-2) Troponin I < 0.012 Total Protein Albumin Chest X-Ray 04/16/18 15:52 IMPRESSION: NO ACUTE RADIOGRAPHIC FINDING IN THE CHEST. - Vital Signs Vital signs: Temp Pulse Resp BP Pulse Ox 97.4 F 57 L 16 107/66 97 04/16/18 15:27 04/16/18 18:39 04/16/18 18:39 04/16/18 19:01 04/16/18 19:01 - Laboratory Result Diagrams: 04/16/18 16:50 04/16/18 16:50 Laboratory results interpreted by me: 04/16/18 04/16/18 16:50 16:50 WBC 3.2 L RDW 14.3 H Absolute Neutrophils 1.6 L AST 37 H - EKG Interpretation by Me Additional EKG results interpreted by me: 04/16/18 16:55 Interpreted by myself 1533: Normal sinus rhythm, rate 67, normal axis, no ectopy, no ST elevation Discharge - Discharge Clinical Impression: Dyspnea on exertion, Left arm pain Chest pain Qualifiers: Chest pain type: unspecified Qualified Code(s): R07.9 - Chest pain, unspecified Back pain Qualifiers: Back pain location: thoracic back pain Chronicity: acute Back pain laterality: left Qualified Code(s): M54.6 - Pain in thoracic spine Condition: Stable Disposition: HOME, SELF-CARE Instructions: Chest Pain of Unclear Cause ([facility]) Additional Instructions: Please return to the emergency department if you have any worsening, or concern of your symptoms. Please return to the emergency department if you develop chest pain, difficulty breathing, severe abdominal pain, or ongoing vomiting. Please follow-up with your primary care physician in 2-3 days and any other recommended physicians. If prescribed, take all medications as directed. If you have any questions or concerns do not hesitate to return the emergency department for evaluation. Referrals: SIDDHARTHA GAMEZ PA-C [Primary Care Provider] - Follow up in 3-5 days
[2018-04-16 16:59] LABS: ABSOLUTE BASOPHILS # (AUTO) 0.1 10^3/uL (0.0-0.2); ABSOLUTE LYMPHOCYTES (AUTO) 1.3 10^3/uL (0.5-4.7); ABSOLUTE MONOCYTES (AUTO) 0.2 10^3/uL (0.1-1.4); ABSOLUTE NEUT (AUTO) 1.6 10^3/uL (1.7-8.2); BASOPHILS % (AUTO) 1.7 % (0-2); EOSINOPHILS % (AUTO) 0.6 % (0-6); HEMATOCRIT 39.7 % (36.0-47.0); HEMOGLOBIN 13.1 g/dL (12.0-15.5); LYMPHOCYTES % (AUTO) 41.1 % (13-45); MEAN CORPUSCULAR HEMOGLOBIN 28.9 pg (27.0-33.4); MEAN CORPUSCULAR VOLUME 88 fl (80-97); MONOCYTES % (AUTO) 7.8 % (3-13); PLATELET COUNT 217 10^3/uL (150-450); RED BLOOD COUNT 4.54 10^6/uL (3.72-5.28); RED CELL DISTRIBUTION WIDTH 14.3 % (11.5-14.0); SEGMENTED NEUTROPHILS % (AUTO) 48.8 % (42-78); TOTAL CELLS COUNTED % (AUTO) 100 %; WHITE BLOOD COUNT 3.2 10^3/uL (4.0-10.5)
--- NOTE | 2018-04-16 17:02 | RADIOLOGY REPORT (SQ) ---
EXAM DESCRIPTION: CHEST 2 VIEWS COMPLETED DATE/TIME: 04/16/2018 4:54 pm REASON FOR STUDY: cp COMPARISON: 07/18/2017 and earlier EXAM PARAMETERS: NUMBER OF VIEWS: two views TECHNIQUE: Digital Frontal and Lateral radiographic views of the chest acquired. RADIATION DOSE: NA LIMITATIONS: none FINDINGS: LUNGS AND PLEURA: No opacities, masses or pneumothorax. No pleural effusion. MEDIASTINUM AND HILAR STRUCTURES: No masses or contour abnormalities. HEART AND VASCULAR STRUCTURES: Heart normal size. No evidence for failure. BONES: No acute findings. HARDWARE: None in the chest. OTHER: No other significant finding. IMPRESSION: NO ACUTE RADIOGRAPHIC FINDING IN THE CHEST. TECHNICAL DOCUMENTATION: JOB ID: [id number] [employer]- All Rights Reserved Reading location - IP/workstation name: [email or web address]
[2018-04-16 17:13] LABS: ALANINE AMINOTRANSFERASE 9 U/L (9-52); ALBUMIN 4.4 g/dL (3.5-5.0); ALKALINE PHOSPHATASE 113 U/L (38-126); ANION GAP 6 (5-19); ASPARTATE AMINO TRANSFERASE 37 U/L (14-36); BILIRUBIN,DIRECT 0.4 mg/dL (0.0-0.4); BILIRUBIN,TOTAL 0.4 mg/dL (0.2-1.3); BLOOD UREA NITROGEN 13 mg/dL (7-20); CARBON DIOXIDE 30 mmol/L (22-30); CHLORIDE 105 mmol/L (98-107); CREATINE KINASE 55 U/L (30-135); GLUCOSE 86 mg/dL (75-110); POTASSIUM 4.3 mmol/L (3.6-5.0); SODIUM 141.1 mmol/L (137-145); TOTAL PROTEIN 7.4 g/dL (6.3-8.2)
[2018-04-16 17:25] LABS: CREATINE KINASE MB 0.25 ng/mL (<4.55); TROPONIN I < 0.012 ng/mL
[2018-04-16 20:28] VITALS: BP 124/80
== END 2018-04-16 20:28 | disposition home or self-care (01) ==
LOC: ER 15:22
DX: M54.6 Pain in thoracic spine (principal); M79.602 Pain in left arm; R06.09 Other forms of dyspnea; R07.9 Chest pain, unspecified; I10 Essential (primary) hypertension; R06.02 Shortness of breath; Z88.8 Allergy status to other drugs, medicaments and biological substances; Z88.5 Allergy status to narcotic agent; Z88.6 Allergy status to analgesic agent
CPT/HCPCS: 93005; 99284; 36415; 82553; 82550; 85025; 80053; 84484; 85379; 71046; 93010; A9270

== ENCOUNTER 2018-04-22 22:29 | Emergency (ER) | payer MEDICARE, MEDICAID ==
[2018-04-22] MEDS ORDERED: LIDOCAINE 5% (700 MG) TRANSDERMAL ADH..PATCH TP ONE (23:58)
--- NOTE | 2018-04-23 00:02 | ER Document Report ---
ED General - General Chief Complaint: Shoulder Pain Stated Complaint: LEFT SHOULDER PAIN Time Seen by Provider: 04/22/18 23:45 Mode of Arrival: Ambulatory Information source: Patient, [facility] Records Notes: 63-year-old female with hypertension, seizure disorder, hyperlipidemia presents with complaint of left shoulder pain. Patient states that 2 weeks prior to arrival she had a slip and fall in a gas station landing on her left side. She was seen in the emergency department at that time and x-rays were obtained which were negative for acute fracture. Patient states that she has had pain with range of motion since that time. She is not currently taking any medication except for Tylenol because she states that she has multiple drug allergies. Patient today denies any chest pain, shortness of breath, weakness of the arm. TRAVEL OUTSIDE OF THE [place] IN LAST 30 DAYS: No - HPI Onset: Other Onset/Duration: Gradual, Persistent Quality of pain: Achy, Throbbing Severity: Moderate Associated symptoms: denies: Chest pain, Nonproductive cough, Productive cough, Fever, Headache, Leg swelling, Nausea, Shortness of breath, Weakness Exacerbated by: Movement Relieved by: Remaining still Similar symptoms previously: Yes Recently seen / treated by doctor: Yes - 1 week prior to arrival - Related Data Allergies/Adverse Reactions: metaxalone [From Skelaxin] Allergy (Mild, Verified 04/16/18 15:45) Hallucinations morphine [Morphine] Allergy (Mild, Verified 04/16/18 15:45) Hallucinations oxycodone HCl [From Percocet] Allergy (Mild, Verified 04/16/18 15:45) Hallucinations ibuprofen Allergy (Verified 04/16/18 15:45) naproxen Allergy (Verified 04/16/18 15:45) oxycodone Allergy (Verified 04/16/18 15:45) Past Medical History - General Information source: Patient, [facility] Records - Social History Smoking Status: Never Smoker Frequency of alcohol use: None Drug Abuse: None Lives with: Family Family History: Arthritis, CVA, DM, Hypertension, Reviewed & Not Pertinent, Thyroid Disfunction - Past Medical History Cardiac Medical History: Reports: Hx Hypercholesterolemia, Hx Hypertension - medicated Pulmonary Medical History: Reports: Hx Asthma - medicated prn, Hx Bronchitis Neurological Medical History: Reports: Hx Migraine, Hx Seizures Endocrine Medical History: Reports: Hx Hypothyroidism Renal/ Medical History: Denies: Hx Peritoneal Dialysis GI Medical History: Reports: Hx Colonoscopy, Hx Endoscopy Musculoskeletal Medical History: Reports Hx Arthritis, Reports Hx Musculoskelet al Deformity, Reports Hx Musculoskeletal Trauma Past Surgical History: Reports: Hx Cholecystectomy - Immunizations Immunizations up to date: Yes Hx Diphtheria, Pertussis, Tetanus Vaccination: Yes Review of Systems - Review of Systems Notes: REVIEW OF SYSTEMS: CONSTITUTIONAL : Denies fever, chills, or sweats. Denies recent illness. Denies weight loss, recent hospitalizations. EENT: Denies visual changes, eye pain. Denies sore throat, oral lesions, difficulty swallowing. CARDIOVASCULAR: Denies chest pain. Denies palpitations. Denies lower extremity edema. RESPIRATORY: Denies cough. Denies shortness of breath, wheezing. GASTROINTESTINAL: Denies abdominal pain or distention. Denies nausea, vomiting, or diarrhea. Denies blood in vomitus, stools, or per rectum. Denies black, tarry stools. Denies constipation. GENITOURINARY: Denies difficulty urinating, painful urination, frequency, blood in urine, or vaginal discharge. MUSCULOSKELETAL: Denies back or neck pain or stiffness. SKIN: Denies rash, lesions or sores. HEMATOLOGIC : Denies easy bruising or bleeding. LYMPHATIC: Denies swollen glands. NEUROLOGICAL: Denies confusion or altered mental status. Denies loss of consciousness. Denies dizziness or lightheadedness. Denies headache. Denies weakness or paralysis. Denies problems difficulty with ambulation, slurred speech. Denies sensory loss, numbness, or tingling. Denies seizures. PSYCHIATRIC: Denies anxiety or stress. Denies depression, suicidal ideation, or homicidal ideation. Denies visual or auditory hallucinations. Physical Exam - Vital signs Vitals: Temp Pulse Resp BP Pulse Ox 97.6 F 58 L 18 172/69 H 100 04/22/18 22:47 04/22/18 22:47 04/22/18 22:47 04/22/18 22:47 04/22/18 22:47 - Notes Notes: PHYSICAL EXAMINATION: GENERAL: Well-appearing, well-nourished and in no acute distress. HEAD: Atraumatic, normocephalic. EYES: Pupils equal round and reactive to light, extraocular movements intact, conjunctiva are normal. ENT: Nares patent, oropharynx clear without exudates. Moist mucous membranes. NECK: Normal range of motion, supple without lymphadenopathy LUNGS: Breath sounds clear to auscultation bilaterally and equal. No wheezes rales or rhonchi. HEART: Regular rate and rhythm without murmurs ABDOMEN: Soft, nontender, nondistended abdomen. No guarding, no rebound. No masses appreciated. Female : deferred Musculoskeletal: Full range of motion of the left shoulder although painful. No obvious deformity. Radial pulse intact. No neuro deficits. Sensation intact. NEUROLOGICAL: Cranial nerves grossly intact. Normal speech, normal gait. Normal sensory, motor exams PSYCH: Normal mood, normal affect. SKIN: Warm, Dry, normal turgor, no rashes or lesions noted. Course - Re-evaluation Re-evalutation: Temp Pulse Resp BP Pulse Ox 97.6 F 58 L 18 172/69 H 100 04/22/18 22:47 04/22/18 22:47 04/22/18 22:47 04/22/18 22:47 04/22/18 22:47 04/23/18 00:11 63-year-old female returns for the second time this month with complaint of left shoulder pain after falling 1 week ago. Patient states that she has had pain ever since. Pain is worse with range of motion. She states she is only taking Tylenol due to multiple drug allergies. Patient denies any additional injury, fall. Exam is without obvious deformity. She has full range of motion although painful. Discussed at length what medications I could offer the patient. We have decided to place a lidocaine patch and prescribed Voltaren cream. She was advised to follow-up with her primary care physician for possible physical therapy and referral to orthopedic surgery if pain persists. Previous x-rays were reviewed. Patient was evaluated and treated as appropriate for the patient's presenting symptoms and complaint, with consideration of any critical or life threatening conditions that may be associated with their obtained history and exam as noted above. All results were discussed with patient and her family members were at the bedside patient provided the opportunity to ask questions, and express concerns. Patient was educated on treatments based on their presumed diagnosis as noted above. At this time we will discharge the patient with return precautions and follow-up recommendations. Verbal discharge instructions given a the bedside. Medication warnings reviewed. Patient is in agreement with this plan and has verbalized understanding of return precautions. After careful consideration I feel that that patient can be safely discharged from the emergency department, they were advised to followup with a primary care physician in 2-3 days. Dictation on this chart was performed using voice recognition software and may result in unintended grammatical, spelling, syntax or errors. - Vital Signs Vital signs: Temp Pulse Resp BP Pulse Ox 97.6 F 58 L 18 172/69 H 100 04/22/18 22:47 04/22/18 22:47 04/22/18 22:47 04/22/18 22:47 04/22/18 22:47 - Diagnostic Test Radiology reviewed: Image reviewed Discharge - Discharge Clinical Impression: Elevated blood pressure reading Shoulder contusion Qualifiers: Encounter type: initial encounter Laterality: left Qualified Code(s): S40.012A - Contusion of left shoulder, initial encounter Left shoulder strain Qualifiers: Encounter type: initial encounter Qualified Code(s): S46.912A - Strain of unspecified muscle, fascia and tendon at shoulder and upper arm level, left arm, initial encounter Condition: Good Disposition: HOME, SELF-CARE Instructions: Exercise Program for the Shoulder ([facility]), Shoulder Injury ([facility]) Prescriptions: Diclofenac Sodium [Voltaren] 100 gm TP BID #1 tube Forms: Elevated Blood Pressure Referrals: SIDDHARTHA GAMEZ PA-C [Primary Care Provider] - Follow up as needed
[2018-04-23 01:15] VITALS: BP 142/75
== END 2018-04-23 00:10 | disposition home or self-care (01) ==
LOC: ER 22:29
DX: S46.912A Strain of unspecified muscle, fascia and tendon at shoulder and upper arm level, left arm, initial encounter (principal); M25.512 Pain in left shoulder; W01.0XXA Fall on same level from slipping, tripping and stumbling without subsequent striking against object, initial encounter; Y92.524 Gas station as the place of occurrence of the external cause; I10 Essential (primary) hypertension; J45.909 Unspecified asthma, uncomplicated; Z88.8 Allergy status to other drugs, medicaments and biological substances; Z88.5 Allergy status to narcotic agent
CPT/HCPCS: 99283

== ENCOUNTER 2018-04-24 20:57 | Emergency (ER) | payer MEDICARE, MEDICAID ==
[2018-04-24 21:51] LABS: ABSOLUTE BASOPHILS # (AUTO) 0.1 10^3/uL (0.0-0.2); ABSOLUTE LYMPHOCYTES (AUTO) 1.6 10^3/uL (0.5-4.7); ABSOLUTE MONOCYTES (AUTO) 0.3 10^3/uL (0.1-1.4); BASOPHILS % (AUTO) 1.4 % (0-2); EOSINOPHILS % (AUTO) 0.7 % (0-6); HEMATOCRIT 40.2 % (36.0-47.0); HEMOGLOBIN 13.1 g/dL (12.0-15.5); MEAN CORPUSCULAR HEMOGLOBIN 28.7 pg (27.0-33.4); MEAN CORPUSCULAR HGB CONC 32.7 g/dL (32.0-36.0); MEAN CORPUSCULAR VOLUME 88 fl (80-97); MONOCYTES % (AUTO) 6.7 % (3-13); PLATELET COUNT 191 10^3/uL (150-450); RED BLOOD COUNT 4.58 10^6/uL (3.72-5.28); SEGMENTED NEUTROPHILS % (AUTO) 50.2 % (42-78); TOTAL CELLS COUNTED % (AUTO) 100 %
[2018-04-24 22:09] LABS: ALANINE AMINOTRANSFERASE 24 U/L (9-52); ALBUMIN 4.2 g/dL (3.5-5.0); ALKALINE PHOSPHATASE 115 U/L (38-126); ANION GAP 6 (5-19); ASPARTATE AMINO TRANSFERASE 16 U/L (14-36); BILIRUBIN,DIRECT 0.2 mg/dL (0.0-0.4); BILIRUBIN,TOTAL 0.3 mg/dL (0.2-1.3); BLOOD UREA NITROGEN 10 mg/dL (7-20); CALCIUM 9.7 mg/dL (8.4-10.2); CARBON DIOXIDE 29 mmol/L (22-30); CHLORIDE 103 mmol/L (98-107); CREATINE KINASE 57 U/L (30-135); GLUCOSE 89 mg/dL (75-110); SODIUM 137.5 mmol/L (137-145); TOTAL PROTEIN 6.7 g/dL (6.3-8.2)
[2018-04-24 22:21] LABS: CREATINE KINASE MB 0.22 ng/mL (<4.55); TROPONIN I < 0.012 ng/mL
--- NOTE | 2018-04-24 23:29 | ER Document Report ---
ED Medical Screen (RME) - General Chief Complaint: Fall Injury Stated Complaint: FALL Time Seen by Provider: 04/24/18 23:24 Primary Care Provider: CHASE PULIDO DO [Primary Care Provider] - Follow up as needed Notes: Patient is a 63-year-old female presents to the emergency department for feeling lightheaded, dizzy and having a syncopal episode. Patient states she felt lightheaded and dizzy states she then fell backwards hitting the back of her head on a tile ground. Patient states she did pass out because the next thing she remembers is an elderly gentleman helping her up. Patient is complaining of generalized headache, generalized cervical neck pain but is refusing a c-collar at this time. Patient states she continues to feel lightheaded and dizzy. Patient speech is slowed which patient's mother is at her bedside stating is normal for the patient Patient does have a history of seizures but is unsure if she had any seizure- like activity. Mother states she was not with the patient when she fell but states she was there shortly after and believes the patient was unresponsive for "alittle bit of time." But then was at her mental baseline. Patient is currently complaining of lightheadedness and dizziness, pain in the occipital region, cervical spine tenderness and bilateral shoulder pain. Past medical history: Hypertension, seizures, COPD, GERD Medications: Aspirin, latex, albuterol, losartan, phenobarbital, propranolol, Zantac Allergies: Aspirin, Motrin, naproxen, omeprazole, oxycodone, amlodipine GENERAL: Alert, interacts well. No acute distress. HEAD: Normocephalic, atraumatic. EYES: Pupils equal, round, and reactive to light. Extraocular movements intact. NECK: Patient is complaining of pain upon palpation of cervical spine. She is refusing a c-collar at this time. EXTREMITIES: Moves all 4 extremities spontaneously. No edema, normal radial and dorsalis pedis pulses bilaterally. No cyanosis. NEUROLOGICAL: Alert and oriented x3. Normal speech. I have greeted and performed a rapid initial assessment of this patient. A comprehensive ED assessment and evaluation of the patient, analysis of test results and completion of the medical decision making process will be conducted by additional ED providers. TRAVEL OUTSIDE OF THE [place] IN LAST 30 DAYS: No - Related Data Allergies/Adverse Reactions: metaxalone [From Skelaxin] Allergy (Mild, Verified 04/16/18 15:45) Hallucinations morphine [Morphine] Allergy (Mild, Verified 04/16/18 15:45) Hallucinations oxycodone HCl [From Percocet] Allergy (Mild, Verified 04/16/18 15:45) Hallucinations ibuprofen Allergy (Verified 04/16/18 15:45) naproxen Allergy (Verified 04/16/18 15:45) oxycodone Allergy (Verified 04/16/18 15:45) Home Medications: aspirin 81 mg. calcium 500 mg. folic acid 1 mg. furosemide 20 mg. ipratropium bromide. latanoprost eye drops. losartan 25 mg. montekulast sod 10 mg. phenobarbital 60 mg. propanolol 20 mg. vitamin d3. zantac 150 mg Past Medical History - Social History Chew tobacco use (# tins/day): No Frequency of alcohol use: None Drug Abuse: None - Past Medical History Cardiac Medical History: Reports: Hx Hypercholesterolemia, Hx Hypertension - medicated Pulmonary Medical History: Reports: Hx Asthma - medicated prn, Hx Bronchitis Neurological Medical History: Reports: Hx Migraine, Hx Seizures Endocrine Medical History: Reports: Hx Hypothyroidism Renal/ Medical History: Denies: Hx Peritoneal Dialysis GI Medical History: Reports: Hx Colonoscopy, Hx Endoscopy Musculoskeltal Medical History: Reports Hx Arthritis, Reports Hx Musculoskeletal Deformity, Reports Hx Musculoskeletal Trauma Past Surgical History: Reports: Hx Cholecystectomy - Immunizations Immunizations up to date: Yes Hx Diphtheria, Pertussis, Tetanus Vaccination: Yes Physical Exam - Vital signs Vitals: Temp Pulse Resp BP Pulse Ox 97.5 F 57 L 18 153/60 H 100 04/24/18 21:02 04/24/18 21:02 04/24/18 21:02 04/24/18 21:02 04/24/18 21:02 Course - Vital Signs Vital signs: Temp Pulse Resp BP Pulse Ox 97.5 F 57 L 18 153/60 H 100 04/24/18 21:02 04/24/18 21:02 04/24/18 21:02 04/24/18 21:02 04/24/18 21:02 - Laboratory Result Diagrams: 04/24/18 21:35 04/24/18 21:35 Doctor's Discharge - Discharge Referrals: ASHOK,CHASE HIRA, DO [Primary Care Provider] - Follow up as needed
[2018-04-25] MEDS ORDERED: NORMAL SALINE 1000 ML 1,000 ML IV ONE (00:26)
--- NOTE | 2018-04-25 01:56 | RADIOLOGY REPORT (SQ) ---
EXAM DESCRIPTION: CT HEAD WITHOUT IV CONTRAST COMPLETED DATE/TME: 04/24/2018 23:24 CLINICAL HISTORY: 63 years, Female, fall COMPARISON: 12/25/2017 CT brain TECHNIQUE: 200 Images stored on PACS. All CT scanners at this facility use dose modulation, iterative reconstruction, and/or weight based dosing when appropriate to reduce radiation dose to as low as reasonably achievable (ALARA). [facility]: Dose Right [facility]: CareDose [facility]: Dose Right [facility]: Teradose 4D [facility]: [employer] LIMITATIONS: None. FINDINGS: The globes are intact. The paranasal sinuses and mastoid air cells are unremarkable. No displaced or depressed skull fracture. No intra or extra-axial hemorrhage. CT is limited for evaluation of acute infarct. No CT evidence for large or territorial acute infarct. No mass or midline shift IMPRESSION: Negative exam TECHNICAL DOCUMENTATION: Quality ID # [id number]: Final reports with documentation of one or more dose reduction techniques (e.g., Automated exposure control, adjustment of the mA and/or kV according to patient size, use of iterative reconstruction technique) copyright 2011 [employer]- All Rights Reserved
--- NOTE | 2018-04-25 01:57 | RADIOLOGY REPORT (SQ) ---
EXAM DESCRIPTION: CT CERVICAL SPINE WITHOUT IV CONTRAST COMPLETED DATE/TME: 04/24/2018 23:24 CLINICAL HISTORY: 63 years, Female, fall. Neck pain. COMPARISON: None. TECHNIQUE: 208 Images stored on PACS. All CT scanners at this facility use dose modulation, iterative reconstruction, and/or weight based dosing when appropriate to reduce radiation dose to as low as reasonably achievable (ALARA). [facility]: Dose Right [facility]: CareDose [facility]: Dose Right [facility]: Teradose 4D [facility]: BioData LIMITATIONS: None. FINDINGS: Evaluation of spinal canal contents limited due to CT technique. However, vertebral body height and alignment is preserved. Minor endplate degenerative changes throughout the cervical spine. The disc spaces are otherwise maintained. The atlantoaxial space is preserved. The lateral masses are not displaced. IMPRESSION: No CT evidence for acute C-spine abnormality TECHNICAL DOCUMENTATION: Quality ID # [id number]: Final reports with documentation of one or more dose reduction techniques (e.g., Automated exposure control, adjustment of the mA and/or kV according to patient size, use of iterative reconstruction technique) copyright 2011 [employer]- All Rights Reserved
--- NOTE | 2018-04-25 02:50 | ER Document Report ---
ED General - General Chief Complaint: Fall Injury Stated Complaint: FALL Time Seen by Provider: 04/24/18 23:24 Primary Care Provider: CHASE PULIDO DO [Primary Care Provider] - Follow up as needed Notes: Patient is a 63-year-old female with a past medical history of obesity, epilepsy although apparently since her seizures have resolved, presents to the emergency department for feeling lightheaded, dizzy and having a near syncopal episode. Patient states she felt lightheaded and dizzy states she then fell backwards hitting the back of her head on a tile ground. Patient states she did pass out because the next thing she remembers is an elderly gentleman helping her up. Patient denies any ongoing dizziness. States that she has a dull, throbbing, constant headache to the back of her head as well as to throughout her neck. Nothing improves or worsens her pain. States her pain is overall improved since she arrived here in the emergency department no seizure activity noted today. She denies any focal weakness or numbness. Mother reports that she is acting at her baseline. TRAVEL OUTSIDE OF THE [place] IN LAST 30 DAYS: No - Related Data Allergies/Adverse Reactions: metaxalone [From Skelaxin] Allergy (Mild, Verified 04/16/18 15:45) Hallucinations morphine [Morphine] Allergy (Mild, Verified 04/16/18 15:45) Hallucinations oxycodone HCl [From Percocet] Allergy (Mild, Verified 04/16/18 15:45) Hallucinations ibuprofen Allergy (Verified 04/16/18 15:45) naproxen Allergy (Verified 04/16/18 15:45) oxycodone Allergy (Verified 04/16/18 15:45) Home Medications: aspirin 81 mg. calcium 500 mg. folic acid 1 mg. furosemide 20 mg. ipratropium bromide. latanoprost eye drops. losartan 25 mg. montekulast sod 10 mg. phenobarbital 60 mg. propanolol 20 mg. vitamin d3. zantac 150 mg Past Medical History - General Information source: Patient, Parent - Social History Smoking Status: Never Smoker Chew tobacco use (# tins/day): No Frequency of alcohol use: None Drug Abuse: None Lives with: Parents Family History: Arthritis, CVA, DM, Hypertension, Reviewed & Not Pertinent, Thyroid Disfunction Patient has suicidal ideation: No Patient has homicidal ideation: No - Past Medical History Cardiac Medical History: Reports: Hx Hypercholesterolemia, Hx Hypertension - medicated Pulmonary Medical History: Reports: Hx Asthma - medicated prn, Hx Bronchitis Neurological Medical History: Reports: Hx Migraine, Hx Seizures Endocrine Medical History: Reports: Hx Hypothyroidism Renal/ Medical History: Denies: Hx Peritoneal Dialysis GI Medical History: Reports: Hx Colonoscopy, Hx Endoscopy Musculoskeletal Medical History: Reports Hx Arthritis, Reports Hx Musculoskeletal Deformity, Reports Hx Musculoskeletal Trauma Past Surgical History: Reports: Hx Cholecystectomy - Immunizations Immunizations up to date: Yes Hx Diphtheria, Pertussis, Tetanus Vaccination: Yes Review of Systems - Review of Systems Notes: Constitutional: Negative for fever. Eyes: Negative for visual changes. ENT: Negative for facial injury Cardiovascular: Negative for chest injury. Respiratory: Negative for shortness of breath. Gastrointestinal: Negative for abdominal injury. Genitourinary: Negative for genital injury Musculoskeletal: Negative for back injury. Skin: Negative for laceration/abrasions. Neurological: Positive for head injury Physical Exam - Vital signs Vitals: Temp Pulse Resp BP Pulse Ox 97.5 F 57 L 18 153/60 H 100 04/24/18 21:02 04/24/18 21:02 04/24/18 21:02 04/24/18 21:02 04/24/18 21:02 Interpretation: Hypertensive, Bradycardic Notes: PHYSICAL EXAMINATION: GENERAL: Well-appearing, no acute distress. HEAD: Atraumatic, normocephalic. EYES: Pupils equal round and reactive to light, extraocular movements intact, sclera anicteric, conjunctiva are normal. ENT: nares patent, no oral pharyngeal trauma. No hemotympanum, no Flynn's sign, no raccoon eyes. NECK: No midline cervical spine tenderness. Patient able to move their head to 45 bilaterally without any discomfort. LUNGS: Breath sounds clear to auscultation bilaterally and equal. No wheezes rales or rhonchi. HEART: Regular rate and rhythm without murmurs. CHEST WALL: No ecchymosis over the chest wall. ABDOMEN: Soft, nontender, normoactive bowel sounds. No guarding, no rebound. No seatbelt sign. EXTREMITIES: Normal range of motion, no pitting or edema. No long bone deformities. BACK: No midline spinal tenderness, step-offs, or deformities. NEUROLOGICAL: Face symmetric. Tongue protrudes midline. Extraocular motions intact. Pupils are 2 mm and equally reactive. Normal speech, normal gait. 5 out of 5 strength in both the distal and proximal upper and lower extremities bilaterally. Sensation is grossly intact throughout. Finger to nose testing normal. Pronator drift normal. PSYCH: Normal mood, normal affect. SKIN: Warm, Dry, normal turgor, no rashes or lesions noted. Course - Re-evaluation Re-evalutation: 04/25/18 02:47 Presentation of a well appearing elderly patient in no acute distress, vitals within normal limits after a fall after becoming lightheaded. CT of the head and cervical spine obtained in triage noted to be unremarkable. Patient has no focal deformities or limited range of motion in any joint space. Chest and abdominal exam are benign without any focal tenderness, shortness of breath, or bruising over the chest or abdominal wall. Patient has no flank tenderness. In regards to the patient's episode of lightheadedness: Exact cause is not certain although patient does report poor fluid intake today. EKG, labs unremarkable. She did not actually lose consciousness today and no true syncopal episode. Denies any preceding chest pain or shortness of breath. There is no obvious findings on trauma exam today and therefore no further imaging or evaluation will be obtained at this time. At this time will discharge with return prec autions and follow-up recommendations. Verbal discharge instructions given a the bedside and opportunity for questions given. Medication warnings reviewed. Patient is in agreement with this plan and has verbalized understanding of return precautions and the need for primary care follow-up in the next 24-72 hours. - Vital Signs Vital signs: Temp Pulse Resp BP Pulse Ox 97.5 F 57 L 23 H 144/59 H 100 04/24/18 21:02 04/24/18 21:02 04/25/18 02:14 04/25/18 02:14 04/25/18 02:14 - Laboratory Result Diagrams: 04/24/18 21:35 04/24/18 21:35 - Diagnostic Test Radiology reviewed: Image reviewed, Reports reviewed Radiology results interpreted by me: 04/25/18 02:49 CT head: No acute intracranial bleed or mass - EKG Interpretation by Me Additional EKG results interpreted by me: 04/25/18 02:49 Sinus rhythm, rate 56. No ST elevations or depressions. QTC is 433. Discharge - Discharge Clinical Impression: Near syncope Fall Qualifiers: Encounter type: initial encounter Qualified Code(s): W19.XXXA - Unspecified fall, initial encounter Head trauma Qualifiers: Encounter type: initial encounter Qualified Code(s): S09.90XA - Unspecified injury of head, initial encounter Condition: Good Disposition: HOME, SELF-CARE Additional Instructions: You have been seen in the Emergency Department (ED) today following a fall. Your workup today did not reveal any injuries that require you to stay in the hospital. You can expect, though, to be stiff and sore for the next several days. You can take Tylenol 1000 mg every 6 hours as needed for pain. You can apply a hot pack or electric heating pad to the sore areas. You can also use topical "Aspercreme with lidocaine" to sore areas as needed. Please follow up with your primary care doctor as soon as possible regarding today's ED visit and your recent fall. Call your doctor or return to the ED if you develop a sudden or severe headache, confusion, slurred speech, facial droop, weakness or numbness in any arm or leg, extreme fatigue, vomiting more than two times, severe abdominal pain, or other symptoms that concern you. You were seen today after an episode of almost passing out. Your EKG here is normal. At this time, we do not feel that your episode of lightheadedness was from any life-threatening cause. Please drink plenty of fluids over the next several days. Return to emergency department if you have any further episodes o f syncope, headache, weakness, numbness, chest pain, or shortness of breath. Please follow up closely with your primary care physician. Referrals: CHASE PULIDO, [Primary Care Provider] - Follow up as needed
[2018-04-25 03:04] VITALS: BP 129/74
--- NOTE | 2018-04-25 07:56 | EKG REPORT ---
SEVERITY:- NORMAL ECG - SINUS RHYTHM : Confirmed by: Kindra Hoffmann MD 25-Apr-2018 07:55:41
== END 2018-04-25 03:04 | disposition home or self-care (01) ==
LOC: ER 20:57
DX: S09.90XA Unspecified injury of head, initial encounter (principal); R42 Dizziness and giddiness; W19.XXXA Unspecified fall, initial encounter; Z79.899 Other long term (current) drug therapy; I10 Essential (primary) hypertension; J45.909 Unspecified asthma, uncomplicated
CPT/HCPCS: 93005; 99284; 96360; 36415; 82553; 82550; 85025; 80053; 84484; 70450; 72125; 93010; J7030

== ENCOUNTER 2018-06-01 19:04 | Emergency (ER) | payer MEDICARE, MEDICAID ==
[2018-06-01] MEDS ORDERED: LIDOCAINE 5% (700 MG) TRANSDERMAL ADH..PATCH TP ONE (21:29)
[2018-06-01] MEDS ORDERED: ACETAMINOPHEN 325 MG TABLET PO ONE (21:29)
--- NOTE | 2018-06-01 21:31 | ER Document Report ---
ED General - General Chief Complaint: Fall Stated Complaint: FALL Time Seen by Provider: 06/01/18 20:58 Primary Care Provider: CHASE PULIDO DO [NO LOCAL MD] - Follow up as needed Notes: Patient is a 63-year-old female with a past medical history of hypertension, hyperlipidemia, presents after tripping at a [employer] over a carpet. Patient initially reports that she had hit her head although to me states that she actually fell back onto her buttocks and did not directly strike her head. She then changes her story and then states she did hit her head. She complains of a throbbing, aching, constant discomfort to her right low back as well as to the back of her scalp. Denies loss of consciousness. Denies focal weakness, numbness or difficulty walking since that time. Does not take any form of anticoagulation. Nothing seems to improve or worsen her pain. Denies history of similar injury. Has not seen her primary care doctor regarding today's concerns. TRAVEL OUTSIDE OF THE [place] IN LAST 30 DAYS: No - Related Data Allergies/Adverse Reactions: metaxalone [From Skelaxin] Allergy (Mild, Verified 06/01/18 19:07) Hallucinations morphine [Morphine] Allergy (Mild, Verified 06/01/18 19:07) Hallucinations oxycodone HCl [From Percocet] Allergy (Mild, Verified 06/01/18 19:07) Hallucinations ibuprofen Allergy (Verified 06/01/18 19:07) naproxen Allergy (Verified 06/01/18 19:07) oxycodone Allergy (Verified 06/01/18 19:07) Past Medical History - General Information source: Patient - Social History Smoking Status: Never Smoker Chew tobacco use (# tins/day): No Frequency of alcohol use: None Drug Abuse: None Lives with: Parents Family History: Arthritis, CVA, DM, Hypertension, Reviewed & Not Pertinent, Thyroid Disfunction Patient has suicidal ideation: No Patient has homicidal ideation: No - Past Medical History Cardiac Medical History: Reports: Hx Hypercholesterolemia, Hx Hypertension - medicated Pulmonary Medical History: Reports: Hx Asthma - medicated prn, Hx Bronchitis Neurological Medical History: Reports: Hx Migraine, Hx Seizures Endocrine Medical History: Reports: Hx Hypothyroidism Renal/ Medical History: Denies: Hx Peritoneal Dialysis GI Medical History: Reports: Hx Colonoscopy, Hx Endoscopy Musculoskeletal Medical History: Reports Hx Arthritis, Reports Hx Musculoskeletal Deformity, Reports Hx Musculoskeletal Trauma Past Surgical History: Reports: Hx Cholecystectomy - Immunizations Immunizations up to date: Yes Hx Diphtheria, Pertussis, Tetanus Vaccination: Yes Review of Systems - Review of Systems Notes: Constitutional: Negative for fever. Eyes: Negative for visual changes. ENT: Negative for facial injury Cardiovascular: Negative for chest injury. Respiratory: Negative for shortness of breath. Gastrointestinal: Negative for abdominal injury. Genitourinary: Negative for genital injury Musculoskeletal: Positive for low back injury Skin: Negative for laceration/abrasions. Neurological: Positive for head injury. Physical Exam - Vital signs Vitals: Temp Pulse Resp BP Pulse Ox 98.2 F 60 16 147/66 H 97 06/01/18 19:32 06/01/18 19:32 06/01/18 19:32 06/01/18 19:32 06/01/18 19:32 Interpretation: Hypertensive Notes: PHYSICAL EXAMINATION: GENERAL: Well-appearing, well-nourished and in no acute distress. HEAD: Atraumatic, normocephalic. EYES: Pupils equal round and reactive to light, extraocular movements intact, sclera anicteric, conjunctiva are normal. ENT: nares patent, oropharynx clear without exudates. Moist mucous membranes. NECK: Normal range of motion, supple without lymphadenopathy LUNGS: Breath sounds clear to auscultation bilaterally and equal. No wheezes rales or rhonchi. HEART: Regular rate and rhythm without murmurs ABDOMEN: Soft, nontender, normoactive bowel sounds. No guarding, no rebound. No masses appreciated. EXTREMITIES: Normal range of motion, no pitting or edema. No cyanosis. NEUROLOGICAL: Face symmetric. Tongue protrudes midline. Extraocular motions intact. Pupils are 2 mm and equally reactive. Normal speech, normal gait. 5 out of 5 strength in both the distal and proximal upper and lower extremities bilaterally. Sensation is grossly intact throughout. Finger to nose testing normal. Pronator drift normal. PSYCH: Normal mood, normal affect. SKIN: Warm, Dry, normal turgor, no rashes or lesions noted. Course - Re-evaluation Re-evalutation: 06/01/18 21:30 Presentation of a well patient in no acute distress, vitals within normal limits after a trip and fall. No focal neurologic deficits on exam, no evidence of basilar skull fracture on exam without evidence of hemotympanum, raccoon eyes, or periauricular hematoma. No papilledema. Patient is not on anticoagulation. GCS is 15. No loss of consciousness. No episodes of vomiting. Patient is therefore negative via Swedish head CT criteria and CT imaging will not be obtained at this time. Patient also evaluated by nexus criteria and found to be negative. Patient is also negative by kosovan C-spine criteria. No clinical evidence to suggest increased risk of cervical spine fracture. No indication for further imaging of the cervical spine. Patient has no focal deformities or limited range of motion in any joint space to indicate need for extremity imaging. No midline spinal tenderness in any location. Mild pain on palpation of the right paraspinous musculature. No indication for CT imaging of the spine. Chest and abdominal exam are benign without any focal tenderness, shortness of breath, or bruising over the chest or abdominal wall. Patient has no flank tenderness. There is no obvious findings on trauma exam today and therefore no further imaging or evaluation will be obtained at this time. I've instructed the patient to return to emergency room immediately should they have any worsening or new symptoms that are concerning to them. - Vital Signs Vital signs: Temp Pulse Resp BP Pulse Ox 97.7 F 64 16 144/87 H 99 06/01/18 21:39 06/01/18 21:39 06/01/18 21:39 06/01/18 21:39 06/01/18 21:39 Discharge - Discharge Clinical Impression: Fall Qualifiers: Encounter type: initial encounter Qualified Code(s): W19.XXXA - Unspecified fall, initial encounter Right low back pain Qualifiers: Chronicity: acute Sciatica presence: without sciatica Qualified Code(s): M54.5 - Low back pain Head trauma Qualifiers: Encounter type: initial encounter Qualified Code(s): S09.90XA - Unspecified injury of head, initial encounter Condition: Good Disposition: HOME, SELF-CARE Additional Instructions: You have been seen in the Emergency Department (ED) today following a fall. Your workup today did not reveal any injuries that require you to stay in the hospital. You can expect, though, to be stiff and sore for the next several days. You can take Tylenol 1000 mg every 6 hours as needed for pain. You can apply a hot pack or electric heating pad to the sore areas. You can also use topical "Aspercreme with lidocaine" to sore areas as needed. Please follow up with your primary care doctor as soon as possible regarding today's ED visit and your recent fall. Call your doctor or return to the ED if you develop a sudden or severe headache, confusion, slurred speech, facial droop, weakness or numbness in any arm or leg, extreme fatigue, vomiting more than two times, severe abdominal pain, or other symptoms that concern you. Referrals: CHASE PULIDO, [NO LOCAL MD] - Follow up as needed
[2018-06-01 21:42] VITALS: BP 144/87
== END 2018-06-01 21:45 | disposition home or self-care (01) ==
LOC: ER 19:04
DX: S09.90XA Unspecified injury of head, initial encounter (principal); M54.5 Low back pain; W01.0XXA Fall on same level from slipping, tripping and stumbling without subsequent striking against object, initial encounter; Y92.512 Supermarket, store or market as the place of occurrence of the external cause; E78.00 Pure hypercholesterolemia, unspecified; I10 Essential (primary) hypertension; Z88.6 Allergy status to analgesic agent; Z90.49 Acquired absence of other specified parts of digestive tract
CPT/HCPCS: 99283; A9270

== ENCOUNTER → 2018-06-08 | Outpatient (CLI) | payer MEDICARE, MEDICAID ==
--- NOTE | 2018-06-09 09:58 | EEG PRO FEE REPORT ---
EEG INTERPRETATION PATIENT NAME: FRANK ROBERTS ROOM#: ORDER#: [id number] DATE OF STUDY: 06/08/2018 : 1955 REFERRING MD: MIC JOHNSON M.D. REASON FOR STUDY: Evaluate for epileptiform activity MEDICATIONS: Propanolol, Vitamin D3, Folic acid, Phenobarbital, Montelukast, calcium, Losartan History This is a 63 year old female with a history of asthma, hypertension, seizures starting as an , irregular heart beats, thyroid nodules, and migraines. This EEG was requested for evaluation for epileptiform activity. EEG Interpretation This EEG was recorded during wakefulness, stage I, and stage II sleep. The awake EEG is characterized by a well organized background with a well developed and reactive posterior dominant rhythm of 9-10 Hz. The remainder of the background consisted of predominantly diffuse very low amplitude beta activity {commonly seen in association with Benzodiazepines and Phenobarbital}. The EEG is symmetric in amplitudes and frequencies. Stage I sleep is characterized by slow rolling eye movements, slowing of the background rhythm by 1-2 Hz, and vertex waves. Stage II sleep was achieved with appearance of sleep spindles and a K-complex. Photic stimulation resulted in photic driving at several stimulation frequencies, and there was no epileptiform activity elicited with photic stimulation. There was prominent bi-frontal myogenic artifact associated with photic stimulation. There were no epileptiform abnormalities { no sharp waves and no spikes}. There were no seizures. The EKG showed a regular rhythm with typically 60-75 bpm. EEG Impression This EEG is within normal limits for age. There was no epileptiform activity or seizures. A single normal routine EEG does not rule out the possibility of epilepsy especially in patients on an antiepileptic medication. If there is high clinical suspicion for epilepsy, then additional EEG evaluation should be considered. INTERPRETING PHYSICIAN: EDUARDO MASCORRO M.D. /: MTEFREBA TT: [id number] ID: [id number] /: [id number] TD: 1943 JOB: [id number] cc:Zoraida CHAVEZ M.D. > MTDD
== END ==
LOC: NEURO 12:05
PROVIDERS: ATTEND Pediatrics
DX: R56.9 Unspecified convulsions (principal); R55 Syncope and collapse; R51 Headache
CPT/HCPCS: 95819

== ENCOUNTER 2018-06-24 16:12 | Emergency (ER) | payer MEDICARE, MEDICAID ==
[2018-06-24] MEDS ORDERED: LIDOCAINE 5% (700 MG) TRANSDERMAL ADH..PATCH TP ONE (16:52)
[2018-06-24] MEDS ORDERED: ACETAMINOPHEN 325 MG TABLET PO ONE (16:52)
--- NOTE | 2018-06-24 17:01 | ER Document Report ---
HPI - HPI Patient complains to provider of: Left wrist pain Time Seen by Provider: 06/24/18 16:37 Onset: Yesterday Onset/Duration: Gradual Quality of pain: Achy Pain Level: 3 Context: Patient presents complaining of left wrist pain that started yesterday. Patient states pain is worse with movement. Patient denies any traumatic injury. Patient denies any history of fever or gout. Patient is left-hand dominant. Associated Symptoms: Other - Left wrist pain. denies: Fever Exacerbated by: Movement Relieved by: Remaining still Similar symptoms previously: No Recently seen / treated by doctor: No - ROS ROS below otherwise negative: Yes Systems Reviewed and Negative: Yes All other systems reviewed and negative - REPRODUCTIVE Reproductive: DENIES: : - MUSCULOSKELETAL Musculoskeletal: REPORTS: Extremity pain - DERM Skin Color: Normal Skin Problems: None Past Medical History - General Information source: Patient - Social History Smoking Status: Never Smoker Frequency of alcohol use: None Drug Abuse: None Occupation: none Family History: Arthritis, CVA, DM, Hypertension, Reviewed & Not Pertinent, Thyroid Disfunction - Past Medical History Cardiac Medical History: Reports: Hx Hypercholesterolemia, Hx Hypertension - medicated Pulmonary Medical History: Reports: Hx Asthma - medicated prn, Hx Bronchitis Neurological Medical History: Reports: Hx Migraine, Hx Seizures Endocrine Medical History: Reports: Hx Hypothyroidism Renal/ Medical History: Denies: Hx Peritoneal Dialysis GI Medical History: Reports: Hx Colonoscopy, Hx Endoscopy Musculoskeletal Medical History: Reports Hx Arthritis, Reports Hx Musculoskeletal Deformity, Reports Hx Musculoskeletal Trauma Past Surgical History: Reports: Hx Cholecystectomy - Immunizations Immunizations up to date: Yes Hx Diphtheria, Pertussis, Tetanus Vaccination: Yes Vertical Provider Document - CONSTITUTIONAL Agree With Documented VS: Yes - reviewed triage sheet Exam Limitations: No Limitations General Appearance: WD/WN, No Apparent Distress - INFECTION CONTROL TRAVEL OUTSIDE OF THE [place] IN LAST 30 DAYS: No - HEENT HEENT: Atraumatic, Normocephalic - NECK Neck: Normal Inspection - RESPIRATORY Respiratory: Breath Sounds Normal, No Respiratory Distress - CARDIOVASCULAR Cardiovascular: Regular Rate, Regular Rhythm Pulses: Normal: Radial - MUSCULOSKELETAL/EXTREMETIES Musculoskeletal/Extremeties: MAEW, FROM, Tender - Left wrist tenderness with range of motion, positive Phalen and Tinel sign. Normal skin color and temperature overlying joint. Normal radial, ulnar, median nerve testing - NEURO Level of Consciousness: Awake, Alert, Appropriate Motor/Sensory: No Motor Deficit - DERM Integumentary: Warm, No Rash Course - Re-evaluation Re-evalutation: 06/24/18 16:55 Patient with left wrist tenderness, normal skin color and temperature overlying joint. No concern for septic arthritis. Does not appear to be gout at this time. Patient denies any history of recent trauma. Suspect likely overuse injury as this is her dominant hand although does have findings worrisome for possible carpal tunnel as well. 06/24/18 17:01 Patient denies any allergy to NSAIDs, patient states that they just upset her stomach so she does not like to take them. Procedures - Immobilization Left Wrist Pre-Proc Neuro Vasc Exam: Normal Immobilizer type: Cock-up Performed by: PCT Post-Proc Neuro Vasc Exam: Normal Alignment checked and good: Yes Discharge - Discharge Clinical Impression: Left wrist pain Carpal tunnel syndrome Qualifiers: Laterality: left Qualified Code(s): G56.02 - Carpal tunnel syndrome, left upper limb Condition: Stable Disposition: HOME, SELF-CARE Instructions: Acetaminophen, Carpal Tunnel Syndrome ([facility]), Temporary Splint ([facility]) Additional Instructions: Return immediately for any new or worsening symptoms Followup with your primary care provider, call tomorrow to make a followup appointment Follow up with orthopedics for any persistent pain or problems Wear splint for the next 4 days and then remove. If still having pain follow-up with orthopedics for further evaluation. Prescriptions: Diclofenac Epolamine [Flector] 1 each TP BID PRN #20 adh..patch PRN Reason: Referrals: BRENT PORTILLO NP [Primary Care Provider] - Follow up as needed [facility] [Provider Group] - Follow up as needed
[2018-06-24 20:55] VITALS: BP 154/67
== END 2018-06-24 17:10 | disposition home or self-care (01) ==
LOC: ER 16:12
DX: G56.02 Carpal tunnel syndrome, left upper limb (principal); M25.532 Pain in left wrist; E78.00 Pure hypercholesterolemia, unspecified; I10 Essential (primary) hypertension; Z90.49 Acquired absence of other specified parts of digestive tract
CPT/HCPCS: 99283; L3908; A9270

== ENCOUNTER 2018-08-06 13:18 | Emergency (ER) | payer MEDICARE, MEDICAID ==
--- NOTE | 2018-08-06 15:08 | RADIOLOGY REPORT (SQ) ---
EXAM DESCRIPTION: CHEST 2 VIEWS COMPLETED DATE/TIME: 08/06/2018 2:47 pm REASON FOR STUDY: pain between shoulders COMPARISON: 04/16/2018 TECHNIQUE: Frontal and lateral radiographic views of the chest acquired. NUMBER OF VIEWS: Two view. LIMITATIONS: None. FINDINGS: LUNGS AND PLEURA: No pneumothorax. No consolidation or pleural effusion. MEDIASTINUM AND HILAR STRUCTURES: Stable. HEART AND VASCULAR STRUCTURES: Stable. BONES: No acute findings. HARDWARE: None in the chest. OTHER: No other significant finding. IMPRESSION: NO ACUTE FINDINGS. TECHNICAL DOCUMENTATION: JOB ID: [id number] [place]-72 2010 [employer]- All Rights Reserved Reading location - IP/workstation name: [email or web address]
[2018-08-06 15:11] LABS: APPEARANCE,URINE CLEAR; BILIRUBIN,URINE NEGATIVE (NEGATIVE); COLOR,URINE YELLOW; GLUCOSE, URINE NEGATIVE (NEGATIVE); KETONES,URINE NEGATIVE (NEGATIVE); LEUKOCYTE ESTERASE,URINE NEGATIVE (NEGATIVE); NITRITE,URINE NEGATIVE (NEGATIVE); PROTEIN,URINE NEGATIVE (NEGATIVE); URINE SPECIFIC GRAVITY 1.016; UROBILINOGEN,URINE NEGATIVE mg/dL (<2.0)
[2018-08-06 15:28] LABS: ABSOLUTE LYMPHOCYTES (AUTO) 1.1 10^3/uL (0.5-4.7); ABSOLUTE MONOCYTES (AUTO) 0.3 10^3/uL (0.1-1.4); ABSOLUTE NEUT (AUTO) 1.8 10^3/uL (1.7-8.2); EOSINOPHILS % (AUTO) 0.7 % (0-6); HEMATOCRIT 41.5 % (36.0-47.0); HEMOGLOBIN 13.3 g/dL (12.0-15.5); LYMPHOCYTES % (AUTO) 34.6 % (13-45); MEAN CORPUSCULAR HEMOGLOBIN 28.6 pg (27.0-33.4); MEAN CORPUSCULAR HGB CONC 32.2 g/dL (32.0-36.0); MEAN CORPUSCULAR VOLUME 89 fl (80-97); MONOCYTES % (AUTO) 10.3 % (3-13); PLATELET COUNT 192 10^3/uL (150-450); RED BLOOD COUNT 4.67 10^6/uL (3.72-5.28); RED CELL DISTRIBUTION WIDTH 14.5 % (11.5-14.0); SEGMENTED NEUTROPHILS % (AUTO) 53.4 % (42-78); TOTAL CELLS COUNTED % (AUTO) 100 %; WHITE BLOOD COUNT 3.3 10^3/uL (4.0-10.5)
[2018-08-06 15:30] LABS: ALANINE AMINOTRANSFERASE 27 U/L (9-52); ALBUMIN 4.1 g/dL (3.5-5.0); ALKALINE PHOSPHATASE 120 U/L (38-126); ANION GAP 8 (5-19); ASPARTATE AMINO TRANSFERASE 19 U/L (14-36); BILIRUBIN,DIRECT 0.3 mg/dL (0.0-0.4); BILIRUBIN,TOTAL 0.4 mg/dL (0.2-1.3); BLOOD UREA NITROGEN 15 mg/dL (7-20); CALCIUM 9.5 mg/dL (8.4-10.2); CARBON DIOXIDE 26 mmol/L (22-30); CHLORIDE 105 mmol/L (98-107); GLUCOSE 85 mg/dL (75-110); POTASSIUM 4.3 mmol/L (3.6-5.0); SODIUM 139.4 mmol/L (137-145); TOTAL PROTEIN 7.2 g/dL (6.3-8.2)
--- NOTE | 2018-08-06 17:06 | ER Document Report ---
ED General - General Chief Complaint: Headache Stated Complaint: SHOULDER PAIN Time Seen by Provider: 08/06/18 14:17 Primary Care Provider: BRENT PORTILLO BI TESTER [Primary Care Provider] - Follow up as needed Mode of Arrival: Ambulatory Information source: Patient TRAVEL OUTSIDE OF THE [place] IN LAST 30 DAYS: No - HPI Patient complains to provider of: Sharp anterior chest wall pain with ongoing cough Onset: Other - Approximately 5 days Onset/Duration: Persistent Quality of pain: Sharp Severity: Severe Pain Level: 4 Associated symptoms: Nonproductive cough. denies: Chills, Diarrhea, Fever, Nausea, Vomiting Exacerbated by: Movement, Coughing, Other - Palpation Relieved by: Denies Similar symptoms previously: No Recently seen / treated by doctor: No Notes: 63-year-old -[place] female comes in today with sharp anterior reproducible chest wall pain that radiates to her back. Patient relates about 5 days of a very hard and frequent nonproductive cough. She is afebrile. No shaking chills. She does not complain of any shortness of breath. Has been having unspecific headaches with this cough. - Related Data Allergies/Adverse Reactions: metaxalone [From Skelaxin] Allergy (Mild, Verified 08/06/18 13:19) Hallucinations morphine [Morphine] Allergy (Mild, Verified 08/06/18 13:19) Hallucinations oxycodone HCl [From Percocet] Allergy (Mild, Verified 08/06/18 13:19) Hallucinations ibuprofen Allergy (Verified 08/06/18 13:19) naproxen Allergy (Verified 08/06/18 13:19) oxycodone Allergy (Verified 08/06/18 13:19) Past Medical History - General Information source: Patient - Social History Smoking Status: Never Smoker Chew tobacco use (# tins/day): No Frequency of alcohol use: None Drug Abuse: None Family History: Arthritis, CVA, DM, Hypertension, Reviewed & Not Pertinent, Th yroid Disfunction Patient has suicidal ideation: No Patient has homicidal ideation: No - Past Medical History Cardiac Medical History: Reports: Hx Hypercholesterolemia, Hx Hypertension - medicated Pulmonary Medical History: Reports: Hx Asthma - medicated prn, Hx Bronchitis Neurological Medical History: Reports: Hx Migraine, Hx Seizures Endocrine Medical History: Reports: Hx Hypothyroidism Renal/ Medical History: Denies: Hx Peritoneal Dialysis GI Medical History: Reports: Hx Colonoscopy, Hx Endoscopy Musculoskeletal Medical History: Reports Hx Arthritis, Reports Hx Musculoskeletal Deformity, Reports Hx Musculoskeletal Trauma Past Surgical History: Reports: Hx Cholecystectomy - Immunizations Immunizations up to date: Yes Hx Diphtheria, Pertussis, Tetanus Vaccination: Yes Review of Systems - Review of Systems Notes: Constitutional: No fevers. No chills. EENT: No eye redness. No eye pain. No ear pain. No sore throat. Cardiovascular: No chest pain. No palpitations. Respiratory: Positive for cough. No shortness of breath. No respiratory distress. Gastrointestinal: No abdominal pain. No nausea, vomiting, or diarrhea. Genitourinary: Atraumatic. No lesions. No pain. No discharge. Musculoskeletal: Positive for chest wall pain Skin: No rash or lesions. Lymphatic: No swollen lymph nodes. Neurologic: No headache. No syncope. Psychiatric: No suicidal or homicidal ideation. Physical Exam - Vital signs Vitals: Temp Pulse Resp BP Pulse Ox 97.8 F 56 L 16 135/66 H 97 08/06/18 14:08 08/06/18 14:08 08/06/18 14:08 08/06/18 14:08 08/06/18 14:08 - Notes Notes: General: Well-developed, well-nourished. In no acute distress. Non-toxic appearing. Cardiac: Well-perfused. Regular rate and rhythm. No murmurs, rubs, or gallops. Pulmonary: No respiratory distress. No cyanosis. Bilateral lung fiels are clear to auscultation. Abdominal: Non-distended. Non-rigid. Bowels sounds are present in all four quadrants. No guarding or rebound. HEENT: Head is atraumatic. Conjunctivae not reddened. No tearing. PERRL. EOMI. Orbits atraumatic. No periorbital swelling or erythema. Oropharynx is without erythema, swelling, or exudates. Neck: Supple. No adenopathy. No meningismus. Dermatologic: Warm with good turgor. No rash. Atraumatic. Chest: Atraumatic. No chest wall tenderness to palpation. Musculoskeletal: Reproducible tenderness to palpation of the anterior chest wall. No rib crepitus. Genitourinary: Examination deferred Neurologic: No gross neurologic deficits. Psychiatric: Normal mood. Course - Re-evaluation Re-evalutation: 08/06/18 17:06 Labs look good. Breath sounds are nice and clear. Patient has had a nagging cough which I think is because the pleuritic chest pain. I will discharge her home with some cough syrup to address her cough. - Vital Signs Vital signs: Temp Pulse Resp BP Pulse Ox 97.8 F 56 L 16 135/66 H 97 08/06/18 14:08 08/06/18 14:08 08/06/18 14:08 08/06/18 14:08 08/06/18 14:08 - Laboratory Result Diagrams: 08/06/18 14:54 08/06/18 14:54 Laboratory results interpreted by me: 08/06/18 14:54 WBC 3.3 L RDW 14.5 H Discharge - Discharge Clinical Impression: Upper respiratory infection Qualifiers: URI type: unspecified URI Qualified Code(s): J06.9 - Acute upper respiratory i nfection, unspecified Condition: Good Disposition: HOME, SELF-CARE Instructions: Upper Respiratory Illness ([facility]) Additional Instructions: If the pain in your chest gets worse or you start getting acutely short of breath, return to the emergency room for further evaluation. Otherwise take the cough medicine prescribed and follow-up with your primary care doctor tomorrow. Prescriptions: Promethazine/Dextromethorphan [Promethazine-Dm Syrup] 5 ml PO Q6HP PRN #120 ml PRN Reason: Referrals: BRENT PORTILLO, BI TESTER [Primary Care Provider] - Follow up tomorrow
[2018-08-06 17:29] VITALS: BP 144/78
== END 2018-08-06 17:29 | disposition home or self-care (01) ==
LOC: ER 13:18
DX: J06.9 Acute upper respiratory infection, unspecified (principal); R51 Headache; R07.89 Other chest pain; R05 Cough; M54.9 Dorsalgia, unspecified; R06.02 Shortness of breath; I10 Essential (primary) hypertension; J45.909 Unspecified asthma, uncomplicated; Z79.899 Other long term (current) drug therapy
CPT/HCPCS: 36415; 71046; 80053; 81001; 85025; 99283

== ENCOUNTER 2018-08-18 13:14 | Observation (INO) | payer MEDICARE, MEDICAID ==
--- NOTE | 2018-08-18 13:38 | ER Document Report ---
ED Medical Screen (RME) - General Chief Complaint: Headache Stated Complaint: NUMBNESS IN FACE,HANDS,AND FEET Time Seen by Provider: 08/18/18 13:35 Primary Care Provider: BRENT PORTILLO NP [Primary Care Provider] - Follow up as needed Mode of Arrival: Ambulatory Information source: Patient Notes: 63-year-old female presented to ED for complaint of headache since last night with numbness to the entire face and weakness to the left foot and hand but she has equal manager contracting equal pedal pushes equal strength to bilateral deltoid and lower arms as well as legs. Patient muscle symmetrical no pronator drift. Patient is alert oriented respirations regular and unlabored answering all questions appropriately. She does have a history of high blood pressure and is on blood pressure medication. Denies any blood thinners. She fell about 2 weeks ago. I have greeted and performed a rapid initial assessment of this patient. A comprehensive ED assessment and evaluation of the patient, analysis of test results and completion of medical decision making process will be conducted by an additional ED providers. Dictation of this chart was performed using [employer] software; therefore, there may be some unintended grammatical errors. TRAVEL OUTSIDE OF THE U.S. IN LAST 30 DAYS: No - Related Data Allergies/Adverse Reactions: metaxalone [From Skelaxin] Allergy (Mild, Verified 08/18/18 13:15) Hallucinations morphine [Morphine] Allergy (Mild, Verified 08/18/18 13:15) Hallucinations oxycodone HCl [From Percocet] Allergy (Mild, Verified 08/18/18 13:15) Hallucinations ibuprofen Allergy (Verified 08/18/18 13:15) naproxen Allergy (Verified 08/18/18 13:15) oxycodone Allergy (Verified 08/18/18 13:15) Past Medical History - Past Medical History Cardiac Medical History: Reports: Hx Hypercholesterolemia, Hx Hypertension - medicated Pulmonary Medical History: Reports: Hx Asthma - medicated prn, Hx Bronchitis Neurological Medical History: Reports: Hx Migraine, Hx Seizures Endocrine Medical History: Reports: Hx Hypothyroidism Renal/ Medical History: Denies: Hx Peritoneal Dialysis GI Medical History: Reports: Hx Colonoscopy, Hx Endoscopy Musculoskeltal Medical History: Reports Hx Arthritis, Reports Hx Musculoskeletal Deformity, Reports Hx Musculoskeletal Trauma Past Surgical History: Reports: Hx Cholecystectomy - Immunizations Immunizations up to date: Yes Hx Diphtheria, Pertussis, Tetanus Vaccination: Yes Physical Exam - Vital signs Vitals: Temp Pulse Resp BP Pulse Ox 98.3 F 65 16 139/57 H 98 08/18/18 13:18 08/18/18 13:18 08/18/18 13:18 08/18/18 13:18 08/18/18 13:18 Course - Vital Signs Vital signs: Temp Pulse Resp BP Pulse Ox 98.3 F 65 16 139/57 H 98 08/18/18 13:18 08/18/18 13:18 08/18/18 13:18 08/18/18 13:18 08/18/18 13:18 Doctor's Discharge - Discharge Referrals: BRENT PORTILLO, MINE CAR REPAIRER [Primary Care Provider] - Follow up as needed
[2018-08-18 14:18] LABS: ABSOLUTE MONOCYTES (AUTO) 0.2 10^3/uL (0.1-1.4); ABSOLUTE NEUT (AUTO) 2.1 10^3/uL (1.7-8.2); BASOPHILS % (AUTO) 0.9 % (0-2); EOSINOPHILS % (AUTO) 0.5 % (0-6); HEMATOCRIT 39.9 % (36.0-47.0); HEMOGLOBIN 13.1 g/dL (12.0-15.5); LYMPHOCYTES % (AUTO) 29.8 % (13-45); MEAN CORPUSCULAR HEMOGLOBIN 28.8 pg (27.0-33.4); MEAN CORPUSCULAR HGB CONC 32.7 g/dL (32.0-36.0); MEAN CORPUSCULAR VOLUME 88 fl (80-97); MONOCYTES % (AUTO) 7.2 % (3-13); PLATELET COUNT 187 10^3/uL (150-450); RED BLOOD COUNT 4.53 10^6/uL (3.72-5.28); RED CELL DISTRIBUTION WIDTH 14.6 % (11.5-14.0); SEGMENTED NEUTROPHILS % (AUTO) 61.6 % (42-78); TOTAL CELLS COUNTED % (AUTO) 100 %; WHITE BLOOD COUNT 3.5 10^3/uL (4.0-10.5)
[2018-08-18 14:20] LABS: APPEARANCE,URINE SLIGHTLY-CLOUDY; BILIRUBIN,URINE NEGATIVE (NEGATIVE); COLOR,URINE YELLOW; GLUCOSE, URINE NEGATIVE (NEGATIVE); KETONES,URINE NEGATIVE (NEGATIVE); LEUKOCYTE ESTERASE,URINE TRACE (NEGATIVE); NITRITE,URINE NEGATIVE (NEGATIVE); PROTEIN,URINE NEGATIVE (NEGATIVE); URINE SPECIFIC GRAVITY 1.019; UROBILINOGEN,URINE NEGATIVE mg/dL (<2.0)
[2018-08-18 14:21] LABS: PARTIAL THROMBOPLASTIN TIME 33.2 SEC (23.5-35.8); PROTHROMBIN TIME 13.7 SEC (11.4-15.4)
--- NOTE | 2018-08-18 14:29 | RADIOLOGY REPORT (SQ) ---
EXAM DESCRIPTION: CT HEAD WITHOUT COMPLETED DATE/TIME: 08/18/2018 2:19 pm REASON FOR STUDY: headache numbness to left hand and foot, no defici COMPARISON: 04/25/2018 TECHNIQUE: Axial images acquired through the brain without intravenous contrast. Images reviewed wi th bone, brain and subdural windows. Additional sagittal and coronal reconstructions were generated. Images stored on PACS. All CT scanners at this facility use dose modulation, iterative reconstruction, and/or weight based d osing when appropriate to reduce radiation dose to as low as reasonably achievable (ALARA). [facility]: Dose Right [facility]: CareDose [facility]: Dose Right [facility]: Teradose 4D [facility]: Smart Elepath RADIATION DOSE: CT Rad equipment meets quality standard of care and radiation dose reduction techniq ues were employed. CTDIvol: 53.2 mGy. DLP: 991 mGy-cm. mGy. LIMITATIONS: None. FINDINGS: VENTRICLES: Stable size and configuration. CEREBRUM: No masses. No hemorrhage. No midline shift. No evidence for acute infarction. Normal gra y/white matter differentiation. No areas of low density in the white matter. CEREBELLUM: No masses. No hemorrhage. No alteration of density. No evidence for acute infarction. EXTRAAXIAL SPACES: No fluid collections. No masses. ORBITS AND GLOBE: No intra- or extraconal masses. Normal contour of globe without masses. CALVARIUM: No fracture. PARANASAL SINUSES: No fluid or mucosal thickening. SOFT TISSUES: No mass or hematoma. OTHER: No other significant finding. IMPRESSION: NO ACUTE INTRACRANIAL IMAGING FINDINGS. EVIDENCE OF ACUTE STROKE: NO. COMMENT: Quality ID # [id number]: Final reports with documentation of one or more dose reduction techniques (e.g., Automated exposure control, adjustment of the mA and/or kV according to patient size, use of iterative reconstruction technique) TECHNICAL DOCUMENTATION: JOB ID: [id number] [employer]- All Rights Reserved Reading location - IP/workstation name: [email or web address]
[2018-08-18] MEDS ORDERED: ASPIRIN 81 MG TABLET, CHEWABLE PO ONE (14:36)
--- NOTE | 2018-08-18 14:54 | ER Document Report ---
ED Neuro Symptoms/Deficit - General Chief Complaint: Headache Stated Complaint: NUMBNESS IN FACE,HANDS,AND FEET Time Seen by Provider: 08/18/18 13:35 Primary Care Provider: BRENT PORTILLO NP [Primary Care Provider] - Follow up as needed Mode of Arrival: Ambulatory Notes: 63-year-old female presents to the ER complaining of left-sided numbness and tingling. The patient stated she woke up with this this morning. Went to bed last night without any difficulty. States her left side from her face arm and leg were numb all day. States it just feels tingly she is not weak at all. Patient is not a very good historian and you have to really focus her to get a consistent story. Patient stated she has had issues in the past where her entire face would go numb. Though it is just the left side today. She denies fever chills cough sore throat denies chest pain denies shortness of breath denies any falls trauma or head injury. TRAVEL OUTSIDE OF THE [place] IN LAST 30 DAYS: No - Related Data Allergies/Adverse Reactions: metaxalone [From Skelaxin] Allergy (Mild, Verified 08/18/18 13:15) Hallucinations morphine [Morphine] Allergy (Mild, Verified 08/18/18 13:15) Hallucinations oxycodone HCl [From Percocet] Allergy (Mild, Verified 08/18/18 13:15) Hallucinations ibuprofen Allergy (Verified 08/18/18 13:15) naproxen Allergy (Verified 08/18/18 13:15) oxycodone Allergy (Verified 08/18/18 13:15) Past Medical History - General Information source: Patient - Social History Smoking Status: Never Smoker Frequency of alcohol use: None Drug Abuse: None Family History: Arthritis, CVA, DM, Hypertension, Reviewed & Not Pertinent, Thy roid Disfunction Patient has suicidal ideation: No Patient has homicidal ideation: No - Past Medical History Cardiac Medical History: Reports: Hx Hypercholesterolemia, Hx Hypertension - medicated Pulmonary Medical History: Reports: Hx Asthma - medicated prn, Hx Bronchitis Neurological Medical History: Reports: Hx Migraine, Hx Seizures Endocrine Medical History: Reports: Hx Hypothyroidism Renal/ Medical History: Denies: Hx Peritoneal Dialysis GI Medical History: Reports: Hx Colonoscopy, Hx Endoscopy Musculoskeletal Medical History: Reports Hx Arthritis, Reports Hx Musculoskeletal Deformity, Reports Hx Musculoskeletal Trauma Past Surgical History: Reports: Hx Cholecystectomy - Immunizations Immunizations up to date: Yes Hx Diphtheria, Pertussis, Tetanus Vaccination: Yes Review of Systems - Review of Systems Constitutional: denies: Chills, Fever Cardiovascular: denies: Chest pain, Dyspnea Respiratory: denies: Short of breath Gastrointestinal: denies: Abdominal pain Neurological/Psychological: Sensory change, Tingling. denies: Anxiety, Hallucinations, Weakness, Loss of power, Headaches -: Yes All other systems reviewed and negative Physical Exam - Vital signs Vitals: Temp Pulse Resp BP Pulse Ox 98.3 F 65 16 139/57 H 98 08/18/18 13:18 08/18/18 13:18 08/18/18 13:18 08/18/18 13:18 08/18/18 13:18 - Notes Notes: GENERAL_APPEARANCE: well_nourished, alert, cooperative, no_acute_distress, no_obvious_discomfort. VITALS: reviewed, see vital signs table. HEAD: no_swelling\tenderness on the head. EYES: PERRL, EOMI, conjunctiva_clear. NOSE: no_nasal_discharge. MOUTH: (-)decreased moisture. THROAT: no_tonsilar_inflammation, no_airway_obstruction. no_lymphadenopathy NECK: supple, no_neck_tenderness, (-)thyromegaly. BACK: no_back_tenderness. CHEST_WALL: no_chest_tenderness. LUNGS: no_wheezing, no_rales, no_rhonchi, (-)accessory muscle use, good air exchange bilateral. HEART: normal_rate, normal_rhythm, normal_S1, normal_S2, (-)S3, (-)S4, no_murmur, no_rub. ABDOMEN: normal_BS, soft, no_abd_tenderness, (-)guarding, (-)rebound, no_organomegaly, no_abd_masses. EXTREMITIES: strength 5/5 in all_extremities, good pulses in all_extremities, no_swelling\tenderness in the extremities, no_edema. SKIN: warm, dry, good_color, no_rash. MENTAL_STATUS: speech_clear, oriented_X_3, normal_affect, responds_appropriately to questions. NEURO: Neg Motor Deficits on exam, CN 2-12 intact, DTR 2+ symmetric x 4, No cerbellar signs subjective tingling left arm left face left leg Course - Re-evaluation Re-evalutation: 08/18/18 14:54 Patient presents with wake-up numbness and tingling. She is not a very good historian. She had gone through the triage process initially saying that she had bilateral facial numbness and left-sided numbness and was able to pin her down on the history she stated was left face left arm and left leg. She has absolutely no neuro deficits. Other than the subjective tingling which puts her stroke scale at NHL 1 there is no other signs or symptoms worse, scan her head and do some blood work. She is not a candidate for thrombolytics due to timing she woke up with this this morning. 08/18/18 17:07 CT scan is normalmost of the work-up has been fairly unremarkable. She is a terrible historian. Patient is been given a full-strength aspirin here. States she still is having left face left arm and left leg numbness. Again her stroke scale is only 1. I spoke with the hospitalist service for hospitalization for carotid Dopplers and MRI. - Vital Signs Vital signs: Temp Pulse Resp BP Pulse Ox 98.3 F 65 16 139/57 H 98 08/18/18 13:18 08/18/18 13:18 08/18/18 13:18 08/18/18 13:18 08/18/18 13:18 - Laboratory Result Diagrams: 08/18/18 13:57 08/18/18 13:57 Laboratory results interpreted by me: 08/18/18 08/18/18 13:57 13:57 WBC 3.5 L RDW 14.6 H Ur Leukocyte Esterase TRACE H - Diagnostic Test Radiology reviewed: Reports reviewed Radiology results interpreted by me: 08/18/18 17:[address] 08/18/18 13:35 IMPRESSION: NO ACUTE INTRACRANIAL IMAGING FINDINGS. EVIDENCE OF ACUTE STROKE: NO. - EKG Interpretation by Wi EKG shows normal: Sinus rhythm Rate: Normal Rhythm: NSR Discharge - Discharge Clinical Impression: CVA (cerebral vascular accident) Qualifiers: CVA mechanism: other Qualified Code(s): I63.89 - Other cerebral infarction Condition: Good Disposition: ADMITTED OBSERVATION Admitting Provider: Evelin (Hospitalist) Unit Admitted: Telemetry Referrals: MARSHBURN,BERNT D, BUTTON SEWING MACHINE OPERATOR [Primary Care Provider] - Follow up as needed
[2018-08-18 14:56] LABS: ALANINE AMINOTRANSFERASE 25 U/L (9-52); ALBUMIN 3.7 g/dL (3.5-5.0); ALKALINE PHOSPHATASE 106 U/L (38-126); ANION GAP 5 (5-19); ASPARTATE AMINO TRANSFERASE 17 U/L (14-36); BILIRUBIN,DIRECT 0.2 mg/dL (0.0-0.4); BILIRUBIN,TOTAL 0.2 mg/dL (0.2-1.3); BLOOD UREA NITROGEN 13 mg/dL (7-20); CALCIUM 9.3 mg/dL (8.4-10.2); CARBON DIOXIDE 29 mmol/L (22-30); CHLORIDE 105 mmol/L (98-107); GLUCOSE 76 mg/dL (75-110); SODIUM 138.9 mmol/L (137-145); TOTAL PROTEIN 6.5 g/dL (6.3-8.2)
[2018-08-18 14:58] LABS: POTASSIUM 4.1 mmol/L (3.6-5.0)
--- NOTE | 2018-08-18 16:36 | EKG REPORT ---
SEVERITY:- NORMAL ECG - SINUS RHYTHM : Confirmed by: Dennis Anders MD 18-Aug-2018 16:36:06
--- NOTE | 2018-08-18 18:06 | PDOC H&P ---
History of Present Illness Admission Date/PCP: 08/18/18 17:14 BRENT PORTILLO NP History of Present Illness: FRANK ROBERTS is a 63 year old female who is from [place] who has a history of hypertension who had onset of what she describes as left-sided facial numbness at 10 AM this morning. She says she has been able to walk and has not lost use of her hands. She has not had any trouble chewing or swallowing. She has not had any trouble speaking. She describes it as constant and not really changing. She says that the left side of her face is numb but is not the entire left side of her face, her chin is spared. She says that the back of her neck is also numb. Nothing like this is ever happened her before. She is a non- smoker. She has no family history of stroke. She is not diabetic. Past Medical History Cardiac Medical History: Reports: Hyperlipidema, Hypertension - medicated Pulmonary Medical History: Reports: Asthma - medicated prn, Bronchitis Neurological Medical History: Reports: Migraine, Seizures Endocrine Medical History: Reports: Hypothyroidism Musculoskeltal Medical History: Reports: Arthritis Hematology: Denies: Anemia, Sickle Cell Disease Past Surgical History Past Surgical History: Reports: Cholecystectomy Denies: Amputation Social History Smoking Status: Never Smoker Family History Family History: Arthritis, CVA, DM, Hypertension, Reviewed & Not Pertinent, Thyroid Disfunction Parental Family History Reviewed: Yes - No history of stroke Children Family History Reviewed: NA Sibling(s) Family History Reviewed.: Yes - No history of stroke Medication/Allergy Home Medications: Aspirin [Annette Chewable Aspirin] 81 mg PO DAILY 07/18/17 Calcium Carbonate [Calcium] 600 mg PO DAILY 07/18/17 Losartan Potassium 1 tab PO DAILY 07/18/17 Montelukast Sodium 10 mg PO DAILY 07/18/17 Cholecalciferol (Vitamin D3) [Vitamin D3] 1 tab PO DAILY 08/18/18 Folic Acid 1 tab PO DAILY 08/18/18 Phenobarbital [Phenobarbital 64.8 mg Tablet] 1 tab PO DAILY 08/18/18 Propranolol HCl [Inderal 20 mg Tablet] 20 mg PO DAILY 08/18/18 Allergies/Adverse Reactions: metaxalone [From Skelaxin] Allergy (Mild, Verified 08/18/18 13:15) Hallucinations morphine [Morphine] Allergy (Mild, Verified 08/18/18 13:15) Hallucinations oxycodone HCl [From Percocet] Allergy (Mild, Verified 08/18/18 13:15) Hallucinations ibuprofen Allergy (Verified 08/18/18 13:15) naproxen Allergy (Verified 08/18/18 13:15) oxycodone Allergy (Verified 08/18/18 13:15) Review of Systems All systems: reviewed and no additional remarkable complaints except as stated - All systems were reviewed and were negative except as noted above Physical Exam Vital Signs: Temp Pulse Resp BP Pulse Ox 98.3 F 65 27 H 147/83 H 97 08/18/18 13:18 08/18/18 13:18 08/18/18 17:31 08/18/18 17:31 08/18/18 17:31 Intake & Output 08/17/18 08/18/18 08/19/18 06:59 06:59 06:59 Weight 122.3 kg General appearance: PRESENT: no acute distress, cooperative, disheveled, morbidly obese Head exam: PRESENT: atraumatic, normocephalic Eye exam: PRESENT: EOMI, PERRLA. ABSENT: conjunctival injection, nystagmus, scleral icterus Ear exam: PRESENT: normal external ear exam Mouth exam: PRESENT: moist, neck supple Teeth exam: PRESENT: poor dentation Throat exam: ABSENT: post pharyngeal erythema Neck exam: PRESENT: full ROM. ABSENT: carotid bruit, JVD, lymphadenopathy, meningismus, tenderness, thyromegaly Respiratory exam: PRESENT: clear to auscultation simran - Wear the finish up his notes, symmetrical, unlabored. ABSENT: accessory muscle use, chest wall tenderness, crackles, prolonged expiratory phas, rhonchi, tachypnea, wheezes Cardiovascular exam: PRESENT: RRR, +S1, +S2. ABSENT: diastolic murmur, systolic murmur Pulses: PRESENT: normal carotid pulses Vascular exam: PRESENT: normal capillary refill GI/Abdominal exam: PRESENT: normal bowel sounds, soft. ABSENT: distended, guarding, rebound, tenderness Extremities exam: ABSENT: clubbing, pedal edema Musculoskeletal exam: PRESENT: ambulatory, normal inspection. ABSENT: deformity Neurological exam: PRESENT: alert, awake, oriented to person, oriented to place, oriented to time, oriented to situation, CN II-XII grossly intact, motor sensory deficit - Vaguely defined numbness on the left side of her face it does not include the entire left side, with the possibility of V3 distribution being spared on the left, which apparently spreads around to the back of her neck but not the back of her head Psychiatric exam: PRESENT: appropriate affect, normal mood Skin exam: PRESENT: dry, warm Results Laboratory Results: 08/18/18 13:57 08/18/18 13:57 08/18/18 08/18/18 08/18/18 13:57 13:57 13:57 WBC 3.5 L RBC 4.53 Hgb 13.1 Hct 39.9 MCV 88 MCH 28.8 MCHC 32.7 RDW 14.6 H Plt Count 187 Seg Neutrophils % 61.6 Lymphocytes % 29.8 Monocytes % 7.2 Eosinophils % 0.5 Basophils % 0.9 Absolute Neutrophils 2.1 Absolute Lymphocytes 1.0 Absolute Monocytes 0.2 Absolute Eosinophils 0.0 Absolute Basophils 0.0 Sodium 138.9 Potassium 4.1 Chloride 105 Carbon Dioxide 29 Anion Gap 5 BUN 13 Creatinine 0.88 Est GFR ( Amer) > 60 Est GFR (Non-Af Amer) > 60 Glucose 76 Calcium 9.3 Total Bilirubin 0.2 AST 17 ALT 25 Alkaline Phosphatase 106 Total Protein 6.5 Albumin 3.7 Urine Color YELLOW Urine Appearance SLIGHTLY-CLOUDY Urine pH 5.0 Ur Specific [place] 1.019 Urine Protein NEGATIVE Urine Glucose (UA) NEGATIVE Urine Ketones NEGATIVE Urine Blood NEGATIVE Urine Nitrite NEGATIVE Ur Leukocyte Esterase TRACE H Urine WBC (Auto) 3 Urine RBC (Auto) 2 08/18/18 08/18/18 13:57 13:57 CK-MB (CK-2) 0.27 Troponin I < 0.012 Impressions: Head CT 08/18/18 13:35 IMPRESSION: NO ACUTE INTRACRANIAL IMAGING FINDINGS. EVIDENCE OF ACUTE STROKE: NO. Assessment and Plan - Diagnosis (1) Left facial numbness Is this a current diagnosis for this admission?: Yes Plan: The distribution of the numbness is quite odd. Blood pressure stable. Will start on aspirin and statin. We will get an MRI of the brain and a carotid Doppler ultrasound. We will have her evaluated by speech therapy, physical therapy and Occupational Therapy. If her work-up is negative we can probably send her home tomorrow. - Time Time Spent with patient: 55 minutes Time Spent with patient: 35 or more minutes
[2018-08-18] MEDS: ATORVASTATIN CALCIUM 20 MG TABLET PO SCH (21:49)
[2018-08-18] MEDS: HEPARIN SOD (PORCINE) 5,000 UNIT/ML 1 ML SYRINGE SUBCUT SCH (21:49)
[2018-08-18] MEDS ORDERED: LORAZEPAM INJ 2 MG/1 ML VIAL IV ONE (22:20)
[2018-08-19] MEDS: HEPARIN SOD (PORCINE) 5,000 UNIT/ML 1 ML SYRINGE SUBCUT SCH ×3 (05:13→23:01)
[2018-08-19 07:45] LABS: CHOLESTEROL 172.67 mg/dL (0-200); TRIGLYCERIDES 42 mg/dL (<150)
[2018-08-19] MEDS ORDERED: ALBUTEROL SULFATE HFA (90 MCG/PUFF) 200 PUFF/8.5 GM MDI IH PRN (07:49)
[2018-08-19 07:57] LABS: DIRECT LDL 57 mg/dL (<100)
[2018-08-19] MEDS ORDERED: LORAZEPAM INJ 2 MG/1 ML VIAL IV ONE (09:18)
[2018-08-19] MEDS ORDERED: LORAZEPAM INJ 2 MG/1 ML VIAL IV PRN ×2 (09:31→10:00)
--- NOTE | 2018-08-19 09:53 | RADIOLOGY REPORT (SQ) ---
EXAM DESCRIPTION: CAROTID DOPPLER COMPLETED DATE/TIME: 08/18/2018 7:21 pm REASON FOR STUDY: left facial numbness I69.992 FACIAL WEAKNESS FOLLOWING UNSP CEREBROVASCULAR DISEA COMPARISON: None. TECHNIQUE: Grayscale ultrasound, Doppler velocity and spectra, and color Doppler images acquired of the extra-cranial carotid and vertebral arteries. Images stored on PACS. LIMITATIONS: Limited visualization due to tortuous vessels. FINDINGS: RIGHT CAROTID CCA Velocities: Within normal limits. ICA Velocities Peak systolic 0.76 m/s. End diastolic 0.3 m/s. Proximal ICA/CCA peak systolic ratio 1.0. Spectra normal. No significant plaque. LEFT CAROTID CCA Velocities: Within normal limits. ICA Velocities Peak systolic 1.13 m/s. End diastolic 0.42 m/s. Proximal ICA/CCA peak systolic ratio 1.1. Spectra normal. No significant plaque. VERTEBRAL ARTERIES: Antegrade flow. Normal waveforms. SUBCLAVIAN ARTERIES: No finding. OTHER: No other significant finding. IMPRESSION: NO HEMODYNAMICALLY SIGNIFICANT STENOSIS. COMMENT: Quality ID #[id number]: Velocity criteria are extrapolated from the diameter data as defined by t he Society of Radiologists in Ultrasound Consensus Conference. Radiology 2003: 229; 340-346. TECHNICAL DOCUMENTATION: JOB ID: [id number] [employer]- All Rights Reserved Reading location - IP/workstation name: [email or web address]
[2018-08-19] MEDS ORDERED: ASPIRIN 81 MG TABLET, CHEWABLE PO SCH (10:00)
[2018-08-19] MEDS ORDERED: (PENDING PHARMACY ID) (Ipratropium Bromide [Ipratropium Bromide] 2 SPRAY) NS SCH (10:00)
[2018-08-19] MEDS ORDERED: (PENDING PHARMACY ID) (Sertraline Hcl [Zoloft] 25 MG) PO SCH (10:00)
[2018-08-19] MEDS: SERTRALINE HCL 50 MG TABLET PO SCH (11:03)
[2018-08-19] MEDS: FOLIC ACID 1 MG TABLET PO SCH (11:03)
[2018-08-19] MEDS: ASPIRIN 81 MG TABLET, ENT COATED PO SCH (11:04)
[2018-08-19] MEDS: IPRATROPIUM BROMIDE 0.06% NASAL SPRAY 15 ML NASL SCH ×3 (11:19→18:24)
[2018-08-19] MEDS: PROPRANOLOL HCL 20 MG TABLET PO SCH ×2 (11:28→23:00)
[2018-08-19] MEDS ORDERED: ACETAMINOPHEN 325 MG TABLET PO PRN (11:57)
[2018-08-19] MEDS: MONTELUKAST SODIUM 10 MG TABLET PO SCH (12:58)
--- NOTE | 2018-08-19 18:10 | RADIOLOGY REPORT (SQ) ---
EXAM DESCRIPTION: MRI HEAD WITHOUT COMPLETED DATE/TIME: 08/19/2018 2:25 pm REASON FOR STUDY: left facial numbness I69.992 FACIAL WEAKNESS FOLLOWING UNSP CEREBROVASCULAR DISEA COMPARISON: None. TECHNIQUE: Multiplanar imaging includes non-contrasted T1, T2, FLAIR, and diffusion with ADC map seq uences. Images stored on PACS. LIMITATIONS: None. FINDINGS: ANATOMY: No anomalies. Normal vascular flow voids. Pituitary fossa normal. CSF SPACES: Normal in size and contour. No hemorrhage. CEREBRUM: Sulci and gyri normal in size and contour. Age-appropriate white matter signal on FLAIR im aging. No evidence of hemorrhage, mass, or extraaxial fluid collection. POSTERIOR FOSSA: No signal alteration. No hemorrhage. No edema, masses or mass effect. Internal gloria tory canals, cerebello-pontine angles, mastoids normal. DIFFUSION IMAGING: Negative for acute or sub-acute infarction. ORBITS: No masses. Globes normal. PARANASAL SINUSES: Trace mucosal thickening in the right maxillary and sphenoid sinuses. OTHER: No other significant finding. IMPRESSION: Negative for acute or sub-acute infarction. Age-appropriate exam. EVIDENCE OF ACUTE STROKE: NO. TECHNICAL DOCUMENTATION: JOB ID: [id number] [id number] 2010 [email or web address]- All Rights Reserved Reading location - IP/workstation name: [email or web address]
--- NOTE | 2018-08-19 18:31 | PDOC PROGRESS REPORT ---
Subjective Progress Note for:: 08/19/18 Subjective:: 63 year old female who is from [place] who has a history of hypertension who had onset of what she describes as left-sided facial numbness at 10 AM this morning. She says she has been able to walk and has not lost use of her hands. She has not had any trouble chewing or swallowing. She has not had any trouble speaking. She describes it as constant and not really changing. She says that the left side of her face is numb but is not the entire left side of her face, her chin is spared. She says that the back of her neck is also numb. Nothing like this is ever happened her before. She is a non-smoker. She has no family history of stroke. She is not diabetic. 08/[id number]-myzt-old female came to the emergency room with complaints of left- sided facial numbness no focal neurological deficits no acute events in the last [address] head was negative for acute changes carotid Doppler negative for hemodynamically significant stenosis and MRI of the head was negative for acute stroke. Patient is refused to go home saying her symptoms are still persisting. Reason For Visit: LEFT FACIAL NUMBNESS Physical Exam Vital Signs: Temp Pulse Resp BP Pulse Ox 98.6 F 61 18 132/74 H 100 08/19/18 14:51 08/19/18 16:00 08/19/18 16:00 08/19/18 16:00 08/19/18 16:00 Intake & Output 08/18/18 08/19/18 08/20/18 06:59 06:59 06:59 Intake Total 422 480 Balance 422 480 Weight 122.1 kg General appearance: PRESENT: no acute distress, obese Head exam: PRESENT: atraumatic Eye exam: PRESENT: PERRLA Mouth exam: PRESENT: moist, tongue midline Teeth exam: PRESENT: poor dentation Neck exam: ABSENT: carotid bruit, JVD, lymphadenopathy, thyromegaly Respiratory exam: PRESENT: clear to auscultation simran. ABSENT: rales, rhonchi, wheezes Cardiovascular exam: PRESENT: RRR. ABSENT: diastolic murmur, rubs, systolic murmur GI/Abdominal exam: PRESENT: normal bowel sounds, soft. ABSENT: distended, guarding, mass, organolmegaly, rebound, tenderness Rectal exam: PRESENT: deferred Extremities exam: PRESENT: full ROM. ABSENT: calf tenderness, clubbing, pedal e delia Neurological exam: PRESENT: alert, awake, oriented to person, oriented to place, oriented to time, oriented to situation, CN II-XII grossly intact. ABSENT: motor sensory deficit Psychiatric exam: PRESENT: appropriate affect, normal mood. ABSENT: homicidal ideation, suicidal ideation Results Laboratory Results: 08/18/18 13:57 08/18/18 13:57 08/19/18 06:45 Triglycerides 42 Cholesterol 172.67 LDL Cholesterol Direct 57 VLDL Cholesterol 8.0 L HDL Cholesterol 114 08/18/18 08/18/18 13:57 13:57 CK-MB (CK-2) 0.27 Troponin I < 0.012 Impressions: Head CT 08/18/18 13:35 IMPRESSION: NO ACUTE INTRACRANIAL IMAGING FINDINGS. EVIDENCE OF ACUTE STROKE: NO. Carotid Doppler Study 08/18/18 17:55 IMPRESSION: NO HEMODYNAMICALLY SIGNIFICANT STENOSIS. Head MRI 08/19/18 00:00 IMPRESSION: Negative for acute or sub-acute infarction. Age-appropriate exam. EVIDENCE OF ACUTE STROKE: NO. Assessment and Plan - Diagnosis (1) Left facial numbness Is this a current diagnosis for this admission?: Yes Plan: The distribution of the numbness is quite odd. Blood pressure stable. Will start on aspirin and statin. We will get an MRI of the brain and a carotid Doppler ultrasound. We will have her evaluated by speech therapy, physical therapy and Occupational Therapy. If her work-up is negative we can probably send her home tomorrow. 08/19/2018-patient came in with left facial numbness work-up was negative for stroke. CT head was negative carotid Doppler was negative MRI of the head was negative patient still complaining of facial numbness and explained to her that every test came back negative there is no reason to stay but she is refusing to go home still complaining of facial numbness. (2) Obesity Is this a current diagnosis for this admission?: No Plan: 08/19/2018-patient BMI is more than 50. Diet exercise weight loss lifestyle modifications are discussed with the patient. Dietary consult was requested.
[2018-08-19] MEDS ORDERED: PHENOBARBITAL 60 MG PO SCH (22:00)
[2018-08-19] MEDS ORDERED: LATANOPROST 0.005% OPH SOLN 2.5 ML OU SCH (22:00)
[2018-08-19] MEDS ORDERED: PHENOBARBITAL 64.8 MG TABLET PO SCH (22:00)
[2018-08-19] MEDS ORDERED: CHOLECALCIFEROL (D3) 1,000 UNIT TABLET PO SCH (22:00)
[2018-08-19] MEDS ORDERED: CALCIUM CARBONATE 250 MG/VITAMIN D3 125 UNIT TABLET PO SCH (22:00)
[2018-08-19] MEDS: ATORVASTATIN CALCIUM 20 MG TABLET PO SCH (23:00)
[2018-08-20] MEDS: HEPARIN SOD (PORCINE) 5,000 UNIT/ML 1 ML SYRINGE SUBCUT SCH (05:20)
--- NOTE | 2018-08-20 09:47 | PDOC PROGRESS REPORT ---
Subjective Progress Note for:: 08/20/18 Subjective:: 63 year old female who is from [place] who has a history of hypertension who had onset of what she describes as left-sided facial numbness at 10 AM this morning. She says she has been able to walk and has not lost use of her hands. She has not had any trouble chewing or swallowing. She has not had any trouble speaking. She describes it as constant and not really changing. She says that the left side of her face is numb but is not the entire left side of her face, her chin is spared. She says that the back of her neck is also numb. Nothing like this is ever happened her before. She is a non-smoker. She has no family history of stroke. She is not diabetic. 08/19/[id number]-jltr-old female came to the emergency room with complaints of left- sided facial numbness no focal neurological deficits no acute events in the last [address] head was negative for acute changes carotid Doppler negative for hemodynamically significant stenosis and MRI of the head was negative for acute stroke. Patient is refused to go home saying her symptoms are still persisting. 12/21/2018-patient still complaining of numbness of the face says something is wrong she does not want to go home. Explained to her again today that carotid Doppler is negative, CT head is negative for stroke, MRI of the head was negative for stroke. Family wants to appeal to Medicare about hospital stay. I called the family welfare social work professor Jordan to provide the paperwork to the patient. Co nvertible in the bed communicating well. Not in distress. Blood pressure is 132/79, temperature 97.4, pulse rate 64, respirations 18, pulse ox 100%. Reason For Visit: LEFT FACIAL NUMBNESS Physical Exam Vital Signs: Temp Pulse Resp BP Pulse Ox 97.4 F 64 18 132/79 H 100 08/20/18 08:03 08/20/18 08:03 08/20/18 08:03 08/20/18 08:03 08/20/18 08:03 Intake & Output 08/19/18 08/20/18 08/21/18 06:59 06:59 06:59 Intake Total 422 1667 Balance 422 1667 Weight 122.1 kg 122.8 kg General appearance: PRESENT: no acute distress, obese Head exam: PRESENT: atraumatic Eye exam: PRESENT: PERRLA Neck exam: ABSENT: carotid bruit, JVD, lymphadenopathy, thyromegaly Respiratory exam: PRESENT: clear to auscultation simran. ABSENT: rales, rhonchi, wheezes Cardiovascular exam: PRESENT: RRR. ABSENT: diastolic murmur, rubs, systolic murmur GI/Abdominal exam: PRESENT: normal bowel sounds, soft. ABSENT: distended, guarding, mass, organolmegaly, rebound, tenderness Rectal exam: PRESENT: deferred Neurological exam: PRESENT: alert, awake, oriented to person, oriented to place, oriented to time, oriented to situation, CN II-XII grossly intact. ABSENT: mot or sensory deficit Psychiatric exam: PRESENT: appropriate affect, normal mood. ABSENT: homicidal ideation, suicidal ideation Results Laboratory Results: 08/18/18 13:57 08/18/18 13:57 08/18/18 08/18/18 13:57 13:57 CK-MB (CK-2) 0.27 Troponin I < 0.012 Impressions: Head CT 08/18/18 13:35 IMPRESSION: NO ACUTE INTRACRANIAL IMAGING FINDINGS. EVIDENCE OF ACUTE STROKE: NO. Carotid Doppler Study 08/18/18 17:55 IMPRESSION: NO HEMODYNAMICALLY SIGNIFICANT STENOSIS. Head MRI 08/19/18 00:00 IMPRESSION: Negative for acute or sub-acute infarction. Age-appropriate exam. EVIDENCE OF ACUTE STROKE: NO. Assessment and Plan - Diagnosis (1) Left facial numbness Is this a current diagnosis for this admission?: Yes Plan: The distribution of the numbness is quite odd. Blood pressure stable. Will start on aspirin and statin. We will get an MRI of the brain and a carotid Doppler ultrasound. We will have her evaluated by speech therapy, physical therapy and Occupational Therapy. If her work-up is negative we can probably se nd her home tomorrow. 08/19/2018-patient came in with left facial numbness work-up was negative for stroke. CT head was negative carotid Doppler was negative MRI of the head was negative patient still complaining of facial numbness and explained to her that every test came back negative there is no reason to stay but she is refusing to go home still complaining of facial numbness. 08/20/[id number]-akgw-old female with history of obesity and hypertension admitted for facial numbness CT head was negative MRI of the brain was negative. Carotid Doppler was negative. Patient is complaining of facial numbness this morning. But asymptomatic. No focal neurological deficits. Patient and family wants to appeal for Medicare to stay. Plan is to repeat the CT head today. Neurochecks are negative. (2) Obesity Is this a current diagnosis for this admission?: No Plan: 08/19/2018-patient BMI is more than 50. Diet exercise weight loss lifestyle modifications are discussed with the patient. Dietary consult was requested. (3) HTN (hypertension) Is this a current diagnosis for this admission?: No Plan: 08/20/2018-patient has history of hypertension blood pressure today is 132/79. Well-controlled. - Time Time Spent with patient: 15-24 minutes Medications reviewed and adjusted accordingly: Yes Anticipated discharge: Home
--- NOTE | 2018-08-20 10:06 | PDOC DISCHARGE SUMMARY ---
General - Admit/Disc Date/PCP Admission Date/Primary Care Provider: 08/18/18 17:14 BRENT PORTILLO NP Discharge Date: 08/20/18 - Discharge Diagnosis (1) Left facial numbness Is this a current diagnosis for this admission?: Yes Summary: The distribution of the numbness is quite odd. Blood pressure stable. Will start on aspirin and statin. We will get an MRI of the brain and a carotid Doppler ultrasound. We will have her evaluated by speech therapy, physical therapy and Occupational Therapy. If her work-up is negative we can probably send her home tomorrow. 08/19/2018-patient came in with left facial numbness work-up was negative for stroke. CT head was negative carotid Doppler was negative MRI of the head was negative patient still complaining of facial numbness and explained to her that every test came back negative there is no reason to stay but she is refusing to go home still complaining of facial numbness. 08/20/[id number]-hirc-old female with history of obesity and hypertension admitted for facial numbness CT head was negative MRI of the brain was negative. Carotid Doppler was negative. Patient is complaining of facial numbness this morning. But asymptomatic. No focal neurological deficits. In my opinion patient can go home today but patient and family wants to appeal for Medicare to stay. Plan is to repeat the CT head today. Neurochecks are negative. (2) Obesity Is this a current diagnosis for this admission?: No Summary: 08/19/2018-patient BMI is more than 50. Diet exercise weight loss lifestyle modifications are discussed with the patient. Dietary consult was requested. 08/20/2018-patient BMI is more than 50. Again today diet exercise weight loss lifestyle modifications are discussed with the patient. Dietary consult was requested during the hospital stay. (3) HTN (hypertension) Is this a current diagnosis for this admission?: No Summary: 08/20/2018-patient has history of hypertension blood pressure today is 132/79. Well-controlled. - Additional Information Discharge Diet: Cardiac Discharge Activity: Activity As Tolerated Prescriptions: Atorvastatin Calcium [Lipitor 20 mg Tablet] 20 mg PO QHS #30 tablet Home Medications: Albuterol Sulfate [Proair HFA Inhalation Aerosol 8.5 gm MDI] 2 puff IH Q6HP PRN 08/18/18 Aspirin [Aspirin 81 mg Chewable Tablet] 81 mg PO DAILY 08/18/18 Calcium Carbonate/Vitamin D3 [Calcium 600 + Vit D Tablet] 1 tab PO QHS 08/18/18 Cholecalciferol (Vitamin D3) [Vitamin D3 1000 Unit Tablet] 1,000 unit PO QHS 08/18/18 Folic Acid [Folvite 1 mg Tablet] 1 mg PO DAILY 08/18/18 Ipratropium [place] 2 spray NS TID 08/18/18 Latanoprost/Pf [Latanoprost 0.005% Eye Drop] 1 drop OU QHS 08/18/18 Montelukast Sodium [Singulair 10 mg Tablet] 10 mg PO NOON 08/18/18 Phenobarbital 60 mg PO QHS 08/18/18 Propranolol HCl [Inderal 20 mg Tablet] 20 mg PO Q12 08/18/18 Sertraline HCl [Zoloft] 25 mg PO DAILY 08/18/18 Aspirin [Ecotrin 81 mg EC Tablet] 81 mg PO DAILY tabec 08/20/18 Atorvastatin Calcium [Lipitor 20 mg Tablet] 20 mg PO QHS #30 tablet 08/20/18 History of Present Illness History of Present Illness: FRANK ROBERTS is a 63 year old female Hospital Course Hospital Course: Patient is admitted with facial numbness CT head was negative for stroke, MRI of the brain was negative for stroke. Carotid Dopplers negative. Patient still complaining of facial numbness this morning plan is to repeat the CT head today. Patient and family are not happy that I am discharging her the amount of pill to the Medicare and also requested to change the physicians. Physical Exam Vital Signs: Temp Pulse Resp BP Pulse Ox 97.4 F 64 18 132/79 H 100 08/20/18 08:03 08/20/18 08:03 08/20/18 08:03 08/20/18 08:03 08/20/18 08:03 Intake & Output 08/19/18 08/20/18 08/21/18 06:59 06:59 06:59 Intake Total 422 1667 Balance 422 1667 Weight 122.1 kg 122.8 kg General appearance: PRESENT: no acute distress Head exam: PRESENT: atraumatic Eye exam: PRESENT: PERRLA Teeth exam: PRESENT: poor dentation Neck exam: ABSENT: carotid bruit, JVD, lymphadenopathy, thyromegaly Respiratory exam: PRESENT: decreased breath sounds Cardiovascular exam: PRESENT: RRR. ABSENT: diastolic murmur, rubs, systolic murmur GI/Abdominal exam: PRESENT: normal bowel sounds, soft. ABSENT: distended, guarding, mass, organolmegaly, rebound, tenderness Rectal exam: PRESENT: deferred Extremities exam: PRESENT: full ROM. ABSENT: calf tenderness, clubbing, pedal edema Neurological exam: PRESENT: alert, awake, oriented to person, oriented to place, oriented to time, oriented to situation, CN II-XII grossly intact. ABSENT: motor sensory deficit Psychiatric exam: PRESENT: agitated Results Laboratory Results: 08/18/18 13:57 08/18/18 13:57 08/18/18 08/18/18 13:57 13:57 CK-MB (CK-2) 0.27 Troponin I < 0.012 Impressions: Head CT 08/18/18 13:35 IMPRESSION: NO ACUTE INTRACRANIAL IMAGING FINDINGS. EVIDENCE OF ACUTE STROKE: NO. Carotid Doppler Study 08/18/18 17:55 IMPRESSION: NO HEMODYNAMICALLY SIGNIFICANT STENOSIS. Head MRI 08/19/18 00:00 IMPRESSION: Negative for acute or sub-acute infarction. Age-appropriate exam. EVIDENCE OF ACUTE STROKE: NO. Qualifiers - * PATIENT BEING DISCHARGED WITH ANY OF THE FOLLOWING DIAGNOSIS: No VTE patient discharged on overlapping Therapy?: No Acute Heart Failure Is this a Heart Failure Patient?: No Plan Discharge Plan: Patient can go home today. Time Spent: Less than 30 Minutes
--- NOTE | 2018-08-20 10:57 | RADIOLOGY REPORT (SQ) ---
EXAM DESCRIPTION: CT HEAD WITHOUT COMPLETED DATE/TIME: 08/20/2018 10:42 am REASON FOR STUDY: facial numbness I69.992 FACIAL WEAKNESS FOLLOWING UNSP CEREBROVASCULAR DISEA I67. 82 CEREBRAL ISCHEMIA COMPARISON: 08/18/2018. TECHNIQUE: Axial images acquired through the brain without intravenous contrast. Images reviewed wi th bone, brain and subdural windows. Additional sagittal and coronal reconstructions were generated. Images stored on PACS. All CT scanners at this facility use dose modulation, iterative reconstruction, and/or weight based d osing when appropriate to reduce radiation dose to as low as reasonably achievable (ALARA). [facility]: Dose Right [facility]: CareDose [facility]: Dose Right [facility]: Teradose 4D [facility]: [employer] RADIATION DOSE: CT Rad equipment meets quality standard of care and radiation dose reduction techniq ues were employed. CTDIvol: 53.2 mGy. DLP: 964 mGy-cm. mGy. LIMITATIONS: None. FINDINGS: VENTRICLES: Normal size and contour. CEREBRUM: No masses. No hemorrhage. No midline shift. No evidence for acute infarction. Normal gra y/white matter differentiation. No areas of low density in the white matter. CEREBELLUM: No masses. No hemorrhage. No alteration of density. No evidence for acute infarction. EXTRAAXIAL SPACES: No fluid collections. No masses. ORBITS AND GLOBE: No intra- or extraconal masses. Normal contour of globe without masses. CALVARIUM: No fracture. PARANASAL SINUSES: Fluid in the left sphenoid sinus. SOFT TISSUES: No mass or hematoma. OTHER: No other significant finding. IMPRESSION: NORMAL BRAIN CT WITHOUT CONTRAST. EVIDENCE OF ACUTE STROKE: NO. COMMENT: Quality ID # [id number]: Final reports with documentation of one or more dose reduction techniques (e.g., Automated exposure control, adjustment of the mA and/or kV according to patient size, use of iterative reconstruction technique) TECHNICAL DOCUMENTATION: JOB ID: [id number] [employer]- All Rights Reserved Reading location - IP/workstation name: [email or web address]
[2018-08-20] MEDS: PROPRANOLOL HCL 20 MG TABLET PO SCH (11:13)
[2018-08-20] MEDS: IPRATROPIUM BROMIDE 0.06% NASAL SPRAY 15 ML NASL SCH (11:13)
[2018-08-20] MEDS: FOLIC ACID 1 MG TABLET PO SCH (11:14)
[2018-08-20] MEDS: ASPIRIN 81 MG TABLET, ENT COATED PO SCH (11:14)
[2018-08-20] MEDS: SERTRALINE HCL 50 MG TABLET PO SCH (11:14)
[2018-08-20] MEDS: MONTELUKAST SODIUM 10 MG TABLET PO SCH (11:15)
[2018-08-20 13:41] VITALS: BP 138/75
[2018-08-20 14:25] LABS: ABSOLUTE MONOCYTES (AUTO) 0.2 10^3/uL (0.1-1.4); ABSOLUTE NEUT (AUTO) 2.1 10^3/uL (1.7-8.2); BASOPHILS % (AUTO) 0.5 % (0-2); EOSINOPHILS % (AUTO) 0.5 % (0-6); HEMATOCRIT 40.2 % (36.0-47.0); HEMOGLOBIN 13.2 g/dL (12.0-15.5); LYMPHOCYTES % (AUTO) 29.5 % (13-45); MEAN CORPUSCULAR HEMOGLOBIN 28.9 pg (27.0-33.4); MEAN CORPUSCULAR HGB CONC 32.9 g/dL (32.0-36.0); MEAN CORPUSCULAR VOLUME 88 fl (80-97); MONOCYTES % (AUTO) 4.7 % (3-13); PLATELET COUNT 186 10^3/uL (150-450); RED BLOOD COUNT 4.58 10^6/uL (3.72-5.28); RED CELL DISTRIBUTION WIDTH 14.3 % (11.5-14.0); SEGMENTED NEUTROPHILS % (AUTO) 64.8 % (42-78); TOTAL CELLS COUNTED % (AUTO) 100 %; WHITE BLOOD COUNT 3.3 10^3/uL (4.0-10.5)
[2018-08-20 14:33] LABS: ALANINE AMINOTRANSFERASE 31 U/L (9-52); ALBUMIN 3.8 g/dL (3.5-5.0); ALKALINE PHOSPHATASE 126 U/L (38-126); ANION GAP 9 (5-19); ASPARTATE AMINO TRANSFERASE 19 U/L (14-36); BILIRUBIN,DIRECT 0.3 mg/dL (0.0-0.4); BILIRUBIN,TOTAL 0.3 mg/dL (0.2-1.3); BLOOD UREA NITROGEN 10 mg/dL (7-20); CALCIUM 9.5 mg/dL (8.4-10.2); CARBON DIOXIDE 27 mmol/L (22-30); CHLORIDE 104 mmol/L (98-107); GLUCOSE 102 mg/dL (75-110); POTASSIUM 4.3 mmol/L (3.6-5.0); SODIUM 139.8 mmol/L (137-145); TOTAL PROTEIN 6.7 g/dL (6.3-8.2)
== END 2018-08-20 14:22 | disposition home or self-care (01) ==
LOC: ER 13:14 → INTOOBSV 17:14 → EH 17:14 → OBSVTOIN 17:14 → 3W 19:46
PROVIDERS: ADMIT Family Medicine; ATTEND Family Medicine
DX: R20.0 Anesthesia of skin (principal); E66.9 Obesity, unspecified; Z68.43 Body mass index [BMI] 50.0-59.9, adult; I10 Essential (primary) hypertension; E78.5 Hyperlipidemia, unspecified; G43.909 Migraine, unspecified, not intractable, without status migrainosus; R56.9 Unspecified convulsions; M19.90 Unspecified osteoarthritis, unspecified site; Z79.82 Long term (current) use of aspirin; Z79.899 Other long term (current) drug therapy; Z90.49 Acquired absence of other specified parts of digestive tract; Z88.8 Allergy status to other drugs, medicaments and biological substances
CPT/HCPCS: 93005; 99285; 36415 ×3; 82553; 83735; 85025 ×2; 85610; 85730; 80053 ×2; 81001; 84484; 80061; 93880; 70551; 70450 ×2; 93010; 97163; G0378; A9270 ×15; J1644 ×3; J2060; J3490 ×3

== ENCOUNTER 2018-08-21 12:24 | Emergency (ER) | payer MEDICARE, MEDICAID ==
--- NOTE | 2018-08-21 12:51 | ER Document Report ---
ED Medical Screen (RME) - General Chief Complaint: S/S of Possible Stroke Stated Complaint: FACIAL NUMBNESS Time Seen by Provider: 08/21/18 12:44 Primary Care Provider: BRENT PORTILLO NP [Primary Care Provider] - Follow up as needed Mode of Arrival: Ambulatory Information source: Patient TRAVEL OUTSIDE OF THE [place] IN LAST 30 DAYS: No - HPI Patient complains to provider of: LEFT SIDED WEAKNESS Notes: 08/21/18 12:50 Patient here with complaints of left-sided numbness, tingling, weakness. The patient was recently admitted to the hospital for left-sided facial numbness, she had a negative head CT, negative carotid Doppler, negative MRI. She states that she woke up this morning with left-sided facial weakness as well as left arm and leg weakness which was new. Exam Left-sided facial droop with slurred speech. Left-sided pronator drift. Plan CBC, CMP, coags, EKG, troponin, stat head CT. Patient will go back to be evaluated by provider immediately. An initial examination was made on the patient as part of the triage process, and it was determined a more comprehensive evaluation was necessary. Initial labs were ordered and patient was transferred to another provider in the ED who assumed care and finished evaluation and plan. - Related Data Allergies/Adverse Reactions: metaxalone [From Skelaxin] Allergy (Mild, Verified 08/18/18 13:15) Hallucinations morphine [Morphine] Allergy (Mild, Verified 08/18/18 13:15) Hallucinations oxycodone HCl [From Percocet] Allergy (Mild, Verified 08/18/18 13:15) Hallucinations ibuprofen Allergy (Verified 08/18/18 13:15) naproxen Allergy (Verified 08/18/18 13:15) oxycodone Allergy (Verified 08/18/18 13:15) Past Medical History - Past Medical History Cardiac Medical History: Reports: Hx Hypercholesterolemia, Hx Hypertension - medicated Pulmonary Medical History: Reports: Hx Asthma - medicated prn, Hx Bronchitis Neurological Medical History: Reports: Hx Migraine, Hx Seizures Endocrine Medical History: Reports: Hx Hypothyroidism Renal/ Medical History: Denies: Hx Peritoneal Dialysis GI Medical History: Reports: Hx Colonoscopy, Hx Endoscopy Musculoskeltal Medical History: Reports Hx Arthritis, Reports Hx Musculoskeletal Deformity, Reports Hx Musculoskeletal Trauma Psychiatric Medical History: Denies: Hx Depression Past Surgical History: Reports: Hx Cholecystectomy - Immunizations Immunizations up to date: Yes Hx Diphtheria, Pertussis, Tetanus Vaccination: Yes Doctor's Discharge - Discharge Referrals: BRENT PORTILLO NP [Primary Care Provider] - Follow up as needed
--- NOTE | 2018-08-21 13:20 | RADIOLOGY REPORT (SQ) ---
EXAM DESCRIPTION: CT HEAD WITHOUT COMPLETED DATE/TIME: 08/21/2018 1:10 pm REASON FOR STUDY: r/o stroke, left side facial numbness COMPARISON: None. TECHNIQUE: Axial images acquired through the brain without intravenous contrast. Images reviewed wi th bone, brain and subdural windows. Additional sagittal and coronal reconstructions were generated. Images stored on PACS. All CT scanners at this facility use dose modulation, iterative reconstruction, and/or weight based d osing when appropriate to reduce radiation dose to as low as reasonably achievable (ALARA). [facility]: Dose Right [facility]: CareDose [facility]: Dose Right [facility]: Teradose 4D [facility]: [employer] RADIATION DOSE: CT Rad equipment meets quality standard of care and radiation dose reduction techniq ues were employed. CTDIvol: 53.2 mGy. DLP: 1044 mGy-cm. mGy. LIMITATIONS: None. FINDINGS: VENTRICLES: Normal size and contour. CEREBRUM: No masses. No hemorrhage. No midline shift. No evidence for acute infarction. Normal gra y/white matter differentiation. No areas of low density in the white matter. CEREBELLUM: No masses. No hemorrhage. No alteration of density. No evidence for acute infarction. EXTRAAXIAL SPACES: No fluid collections. No masses. ORBITS AND GLOBE: No intra- or extraconal masses. Normal contour of globe without masses. CALVARIUM: No fracture. PARANASAL SINUSES: No fluid or mucosal thickening. SOFT TISSUES: No mass or hematoma. OTHER: No other significant finding. IMPRESSION: NORMAL BRAIN CT WITHOUT CONTRAST. EVIDENCE OF ACUTE STROKE: NO. COMMENT: Pertinent positive or negative findings of the imaging study reported as a CRITICAL EXAM t josey REIS NP at13:14 on 08/21/2018. Category of Critical Exam: Stroke alert Quality ID # [id number]: Final reports with documentation of one or more dose reduction techniques (e.g., Au tomated exposure control, adjustment of the mA and/or kV according to patient size, use of iterative reconstruction technique) TECHNICAL DOCUMENTATION: JOB ID: [id number] [employer]- All Rights Reserved Reading location - IP/workstation name: [email or web address]
[2018-08-21 13:43] LABS: ABSOLUTE LYMPHOCYTES (AUTO) 1.2 10^3/uL (0.5-4.7); ABSOLUTE MONOCYTES (AUTO) 0.4 10^3/uL (0.1-1.4); ABSOLUTE NEUT (AUTO) 2.9 10^3/uL (1.7-8.2); BASOPHILS % (AUTO) 0.5 % (0-2); EOSINOPHILS % (AUTO) 0.6 % (0-6); HEMATOCRIT 38.5 % (36.0-47.0); HEMOGLOBIN 12.5 g/dL (12.0-15.5); LYMPHOCYTES % (AUTO) 25.3 % (13-45); MEAN CORPUSCULAR HEMOGLOBIN 28.7 pg (27.0-33.4); MEAN CORPUSCULAR HGB CONC 32.6 g/dL (32.0-36.0); MEAN CORPUSCULAR VOLUME 88 fl (80-97); MONOCYTES % (AUTO) 9.7 % (3-13); PLATELET COUNT 207 10^3/uL (150-450); RED BLOOD COUNT 4.37 10^6/uL (3.72-5.28); RED CELL DISTRIBUTION WIDTH 14.8 % (11.5-14.0); SEGMENTED NEUTROPHILS % (AUTO) 63.9 % (42-78); TOTAL CELLS COUNTED % (AUTO) 100 %; WHITE BLOOD COUNT 4.6 10^3/uL (4.0-10.5)
[2018-08-21 13:45] LABS: INTERNATIONAL RATION (INR) 1.03
[2018-08-21 13:46] LABS: PARTIAL THROMBOPLASTIN TIME 35.6 SEC (23.5-35.8)
[2018-08-21 14:00] LABS: ALANINE AMINOTRANSFERASE 32 U/L (9-52); ALBUMIN 3.7 g/dL (3.5-5.0); ALKALINE PHOSPHATASE 112 U/L (38-126); ANION GAP 9 (5-19); ASPARTATE AMINO TRANSFERASE 20 U/L (14-36); BILIRUBIN,DIRECT 0.2 mg/dL (0.0-0.4); BILIRUBIN,TOTAL 0.2 mg/dL (0.2-1.3); BLOOD UREA NITROGEN 11 mg/dL (7-20); CALCIUM 9.3 mg/dL (8.4-10.2); CARBON DIOXIDE 27 mmol/L (22-30); CHLORIDE 104 mmol/L (98-107); GLUCOSE 89 mg/dL (75-110); POTASSIUM 3.9 mmol/L (3.6-5.0); SODIUM 139.6 mmol/L (137-145); TOTAL PROTEIN 6.6 g/dL (6.3-8.2)
--- NOTE | 2018-08-21 15:28 | ER Document Report ---
ED General - General Chief Complaint: S/S of Possible Stroke Stated Complaint: FACIAL NUMBNESS Time Seen by Provider: 08/21/18 12:44 Primary Care Provider: BRENT PORTILLO OCCUPATIONAL THER [Primary Care Provider] - Follow up as needed Mode of Arrival: Ambulatory TRAVEL OUTSIDE OF THE [place] IN LAST 30 DAYS: No - HPI Notes: Patient is a 63-year-old female that presents to the emergency department for chief complaint of left-sided facial numbness as well as arm and leg numbness. Patient states her numbness began on Tuesday. She states sometimes her arm and leg become numb and sometimes they are not. Currently she states her left arm is not numb but her left foot is. She also reports numbness on the left side of her face and in the back of her left neck. She states that her symptoms have been similar since Tuesday. She denies any vision changes or headache. She does states she feels like she is speaking differently as well. Patient was discharged from the hospital yesterday after having complete stroke work-up and was started on a statin. She has been compliant with medications. She states the only new symptom she has had today since being previously seen was numbness to the back of her left neck. Patient called her PCP for follow-up today and she was referred back to the emergency room. Past Medical History: Hypertension, hyperlipidemia Past Surgical History: Reviewed in chart Social History: Reviewed in chart Family History: Reviewed and noncontributory for presenting illness Allergies: Reviewed, see documented allergy list. REVIEW OF SYSTEMS: CONSTITUTIONAL : No fever No chills No diaphoresis No recent illness EENT: No vision changes No congestion No sore throat CARDIOVASCULAR: No chest pain No palpitations RESPIRATORY: No shortness of breath No cough No difficulty breathing GASTROINTESTINAL: No abdominal pain No nausea No vomiting No diarrhea GENITOURINARY: No dysuria No hematuria No difficulty urinating MUSCULOSKELETAL: No back pain No leg pain No arm pain SKIN: No rashes No lesions LYMPHATIC: No swollen, enlarged glands. NEUROLOGICAL: No lightheadedness No headache No weakness paresthesias PSYCHIATRIC: No anxiety No depression PHYSICAL EXAMINATION: Vital signs reviewed, nursing noted reviewed. GENERAL: Well-appearing, well-nourished and in no acute distress. HEAD: Atraumatic, normocephalic. EYES: Eyes appear normal, extraocular movements intact, sclera anicteric, conjunctiva are normal. ENT: nares patent, oropharynx clear without exudates. Moist mucous membranes. NECK: Normal range of motion, supple without lymphadenopathy LUNGS: Breath sounds clear to auscultation bilaterally and equal. No wheezes rales or rhonchi. HEART: Regular rate and rhythm without murmurs ABDOMEN: Soft, nontender, normoactive bowel sounds. No rebound, guarding, or rigidity. No masses appreciated. EXTREMITIES: Nontender, good range of motion, no pitting or edema. NEUROLOGICAL: Moves all extremities spontaneously with 5/5 strength in bilateral upper and lower extremities. Mild dysarthria. Subjective paresthesias with sensory testing in the entirety of left arm, left leg, left upper and lower face, left anterior and posterior neck. NIH is 2 PSYCH: Normal mood, normal affect. SKIN: Warm, Dry, normal turgor, no rashes or lesions noted on exposed skin - Related Data Allergies/Adverse Reactions: metaxalone [From Skelaxin] Allergy (Mild, Verified 08/18/18 13:15) Hallucinations morphine [Morphine] Allergy (Mild, Verified 08/18/18 13:15) Hallucinations oxycodone HCl [From Percocet] Allergy (Mild, Verified 08/18/18 13:15) Hallucinations ibuprofen Allergy (Verified 08/18/18 13:15) naproxen Allergy (Verified 08/18/18 13:15) oxycodone Allergy (Verified 08/18/18 13:15) Past Medical History - General Information source: Patient - Social History Smoking Status: Unknown if Ever Smoked Chew tobacco use (# tins/day): No Frequency of alcohol use: None Drug Abuse: None Family History: Arthritis, CVA, DM, Hypertension, Reviewed & Not Pertinent, Thyroid Disfunction Patient has suicidal ideation: No Patient has homicidal ideation: No - Past Medical History Cardiac Medical History: Reports: Hx Hypercholesterolemia, Hx Hypertension - medicated Pulmonary Medical History: Reports: Hx Asthma - medicated prn, Hx Bronchitis Neurological Medical History: Reports: Hx Migraine, Hx Seizures Endocrine Medical History: Reports: Hx Hypothyroidism Renal/ Medical History: Denies: Hx Peritoneal Dialysis GI Medical History: Reports: Hx Colonoscopy, Hx Endoscopy Musculoskeletal Medical History: Reports Hx Arthritis, Reports Hx Musculoskeletal Deformity, Reports Hx Musculoskeletal Trauma Psychiatric Medical History: Denies: Hx Depression Past Surgical History: Reports: Hx Cholecystectomy - Immunizations Immunizations up to date: Yes Hx Diphtheria, Pertussis, Tetanus Vaccination: Yes Physical Exam - Vital signs Vitals: Pulse Resp BP Pulse Ox 63 17 101/66 100 08/21/18 13:43 08/21/18 13:43 08/21/18 13:43 08/21/18 13:43 Course - Re-evaluation Re-evalutation: 08/21/18 15:26 Vitals reviewed. Nursing notes reviewed. Patient has a negative CT scan of the brain. She had MRI and echo performed as an inpatient within the last 2 days. Her new symptom today is numbness to the back of her neck on the left. Her NIH score is 2. She was recommended speech therapy as well as occupational therapy which she did not know anything about. I did securities counselor her on strokelike symptoms and PT, OT and speech therapy. Patient does not have a neurologist and states she does not believe she saw and while in the hospital. She will be referred to Dr. Chambers for neurology follow-up. Her symptoms do not follow a particular stroke pattern and she has had admission with complete stroke work-up in the last few days. I do not see a reason to readmit this patient to the hospital. She is otherwise hemodynamically intact and in no acute distress. Family was encouraged to follow closely with her primary care doctor. She was counseled on symptoms return to the emergency room. She is in agreement with this plan of care and stable at discharge. Head CT 08/21/18 00:00 IMPRESSION: NORMAL BRAIN CT WITHOUT CONTRAST. EVIDENCE OF ACUTE STROKE: NO. Laboratory 08/21/18 08/21/18 08/21/18 13:23 13:23 13:23 WBC 4.6 RBC 4.37 Hgb 12.5 Hct 38.5 MCV 88 MCH 28.7 MCHC 32.6 RDW 14.8 H Plt Count 207 Seg Neutrophils % 63.9 Lymphocytes % 25.3 Monocytes % 9.7 Eosinophils % 0.6 Basophils % 0.5 Absolute Neutrophils 2.9 Absolute Lymphocytes 1.2 Absolute Monocytes 0.4 Absolute Eosinophils 0.0 Absolute Basophils 0.0 PT INR APTT Sodium 139.6 Potassium 3.9 Chloride 104 Carbon Dioxide 27 Anion Gap 9 BUN 11 Creatinine 0.99 Est GFR ( Amer) > 60 Est GFR (Non-Af Amer) 57 L Glucose 89 Calcium 9.3 Total Bilirubin 0.2 Direct Bilirubin 0.2 Neonat Total Bilirubin Not Reportable Neonat Direct Bilirubin Not Reportable Neonat Indirect Bili Not Reportable AST 20 ALT 32 Alkaline Phosphatase 112 Troponin I < 0.012 Total Protein 6.6 Albumin 3.7 08/21/18 13:23 WBC RBC Hgb Hct MCV MCH MCHC RDW Plt Count Seg Neutrophils % Lymphocytes % Monocytes % Eosinophils % Basophils % Absolute Neutrophils Absolute Lymphocytes Absolute Monocytes Absolute Eosinophils Absolute Basophils PT 14.0 INR 1.03 APTT 35.6 Sodium Potassium Chloride Carbon Dioxide Anion Gap BUN Creatinine Est GFR ( Amer) Est GFR (Non-Af Amer) Glucose Calcium Total Bilirubin Direct Bilirubin Neonat Total Bilirubin Neonat Direct Bilirubin Neonat Indirect Bili AST ALT Alkaline Phosphatase Troponin I Total Protein Albumin - Vital Signs Vital signs: Temp Pulse Resp BP Pulse Ox 98.8 F 65 20 135/81 H 98 08/21/18 15:18 08/21/18 15:18 08/21/18 15:18 08/21/18 15:18 08/21/18 15:18 - Laboratory Result Diagrams: 08/21/18 13:23 08/21/18 13:23 Laboratory results interpreted by me: 08/21/18 08/21/18 13:23 13:23 RDW 14.8 H Est GFR (Non-Af Amer) 57 L Discharge - Discharge Clinical Impression: Facial numbness, Left sided numbness Condition: Stable Disposition: HOME, SELF-CARE Instructions: Numbness or Paresthesia ([facility]) Additional Instructions: Please return to the emergency department if you have any worsening, or concern of your symptoms. Please return to the emergency department if you develop chest pain, difficulty breathing, severe abdominal pain, or ongoing vomiting. Please follow-up with your primary care physician in 2-3 days and any other recommended physicians. If prescribed, take all medications as directed. If you have any questions or concerns do not hesitate to return the emergency department for evaluation. Referrals: CRISSY CHAMBERS MD [NO LOCAL MD] - Follow up in 3-5 days BRENT PORTILLO NP [Primary Care Provider] - Follow up in 3-5 days ED NIH Stroke Scale - NIH Stroke Scale *: 1. NIH scale should be completed with appropriate accompanying assessment tools. *: 2. The NIH should reflect what the patient is capable of doing and should not be coached by the clinician. 1a. Level of Consciousness: 0=Alert;keenly responsive -: 1=Drowsy -: 2=Obtunded -: 3=Coma/unresponsive or reflex to noxious stimuli. 1a. Responses: 0 1b. Orientation Questions: a. What month is it? -: b. How old are you? -: 0=Answers both questions correctly. -: 1=Answers one question correctly or patient is intubated or has orotracheal trauma. -: 2=Answers neither question correctly. 1b. Responses: 0 1c. Response to commands: a. Open and close eyes? -: b. Data Analytics Chief Scientist and release hand? -: Credit is given despite weakness. Demonstration of task is permitted. Substitute command if hands cannot be used. -: 0=Performs both tasks correctly -: 1=Performs one task correctly -: 2=Performs neither task correctly 1c. Responses: 0 2. Gaze: Establish eye contact and instruct patient to "Follow my finger" -: 0=Normal -: 1=Partial gaze palsy. Gaze is abnormal in one or both eyes, but where forced deviation or total gaze paresis is not present. -: 2=Forced deviation or total gaze paresis. 2. Responses: 0 3. Visual Vega: Sees fingers in all four quadrants. -: 0=No visual loss. -: 1=Partial hemianopsia. -: 2=Complete hemianopsia. -: 3=Bilateral hemianopsia (including Cortical blindness) 3. Responses: 0 4. Facial Movement: Instruct patient to: -: a. Show me your teeth -: b. Raise your eyebrows -: c. Close your eyes -: d. Smile -: 0=Normal symmetrical movement -: 1=Minor paralysis (flattened nasolabial fold, asymmetry on smiling). -: 2=Partial paralysis (total or near total paralysis of lower face). -: 3=Complete paralysis of upper and lower face 4. Responses: 0 5. Motor functions (left arm): Alternate sides and extend each arm with palms down (90 degrees if sitting or 45 degrees for supine). -: 0=No drift;limb holds for full 10 seconds. -: 1=Drift; limb holds but drifts down before full 10 seconds, but does not hit bed. -: 2=Some effort against gravity; limb cannot get to or maintain position. -: 3=No effort against gravity; limb falls. -: 4=No movement. -: UN=Amputation, joint fusion, explain in comments. 5. Responses (left arm): 0 5. Motor Functions (right arm): Alternate sides and extend each arm with palms down (90 degrees if sitting or 45 degrees for supine). -: 0=No drift;limb holds for full 10 seconds. -: 1=Drift; limb holds but drifts down before full 10 seconds, but does not hit bed. -: 2=Some effort against gravity; limb cannot get to or maintain position. -: 3=No effort against gravity; limb falls. -: 4=No movement. -: UN=Amputation, joint fusion, explain in comments. 5. Responses (right arm): 0 6. Motor Functions (left leg): With patient lying supine, alternate sides and extend each leg (30 degrees always while supine). -: 0=No drift, leg holds position for full 5 seconds -: 1=Drift; leg falls before full 5 seconds but does not hit bed. -: 2=Some effort against gravity, leg falls to bed but some effort against gravity. -: 3=No effort against gravity, leg falls to bed immediately. -: 4=No movement. -: UN=Amputation, joint fusion; explain in comments. 6. Responses (left leg): 0 6. Motor Functions (right leg): With patient lying supine, alternate sides and extend each leg (30 degrees always while supine). -: 0=No drift, leg holds position for full 5 seconds -: 1=Drift; leg falls before full 5 seconds but does not hit bed. -: 2=Some effort against gravity, leg falls to bed but some effort against gravity. -: 3=No effort against gravity, leg falls to bed immediately. -: 4=No movement. -: UN=Amputation, joint fusion; explain in comments. 6. Responses (right leg): 0 7. Limb Ataxia: With eyes open instruct patient to: -: a. "Touch your finger to your nose". -: b. "Touch your heel to your berg" -: 0=Absent -: 1=Present in one limb. -: 2=Present in two limbs. -: UN=Amputation or joint fusion; explain in comments. 7. Responses: 0 8. Sensory: Test sensation using pinprick or noxious stimuli. Test as many body parts as possible. -: 0=Normal;no sensory loss -: 1=Mile to moderate sensory loss (patient feels pin prick but is less sharp on affected side). -: 2=Severe or total sensory loss. 8. Responses: 1 9. Best Language: Instruct patient to: -: a. "Describe what you see in this picture." -: b. "Name the items in this picture." -: c. "Read these sentences." -: 0=No aphasia, normal -: 1=Mild to moderate aphasia. -: 2=Severe aphasia -: 3=Mute, global aphasia, no usable speech or auditory comprehension. 9. Responses: 0 10. Articulation, Dysarthia: Instruct patient to: -: "Read these words" or "Repeat these words" -: 0=Normal -: 1=Mild to moderate; patient may slur some words but can be understood without difficulty. -: 2=Severe; patients speech so slurred as to be unintelligible in the absence of dysphasia. -: UN=Intubated or other physical barrier, explain in comments. 10. Responses: 1 11. Extinction or inattention: 0=No abnormality -: 1= Visual, tactile, auditory, spatial, or personal inattention or extinction to bilateral simulation in one or the sensory modalities. -: 2=Profound mariusz-inattention or mariusz-inattention to more than one modality; does not recognize own hand. 11. Responses: 0 Total Score: 2
[2018-08-21 16:07] VITALS: BP 130/80
--- NOTE | 2018-08-23 11:23 | EKG REPORT ---
SEVERITY:- BORDERLINE ECG - SINUS RHYTHM LVH BY VOLTAGE : Confirmed by: Bhavin Bell 23-Aug-2018 11:22:56
== END 2018-08-21 16:07 | disposition home or self-care (01) ==
LOC: ER 12:24
DX: R20.0 Anesthesia of skin (principal); I10 Essential (primary) hypertension; E78.5 Hyperlipidemia, unspecified; Z88.3 Allergy status to other anti-infective agents
CPT/HCPCS: 36415; 70450; 80053; 84484; 85025; 85610; 85730; 93005; 93010; 99285

== ENCOUNTER 2018-08-24 19:45 | Emergency (ER) | payer MEDICARE, MEDICAID ==
--- NOTE | 2018-08-24 22:30 | ER Document Report ---
ED General - General Chief Complaint: Contusion Stated Complaint: LEFT UPPER ARM PAIN Time Seen by Provider: 08/24/18 22:08 Primary Care Provider: BRENT PORTILLO, BILLET ASSEMBLER [Primary Care Provider] - Follow up as needed Mode of Arrival: Ambulatory Information source: Patient, Parent Notes: Patient is a 63-year-old female comes emergency room complaining of a left posterior arm bruise. Patient states that she is here to have it checked out again. Is not getting any better. She has some discomfort and pain with it. Patient is calmly by her parents as well. Patient denies any new traumatic events. Denies any nausea or vomiting or diarrhea. TRAVEL OUTSIDE OF THE [place] IN LAST 30 DAYS: No - HPI Onset: Other - Approximately 6 months Onset/Duration: Persistent Quality of pain: Achy Severity: Moderate Pain Level: 3 Associated symptoms: None Similar symptoms previously: Yes Recently seen / treated by doctor: Yes - Related Data Allergies/Adverse Reactions: metaxalone [From Skelaxin] Allergy (Mild, Verified 08/24/18 19:50) Hallucinations morphine [Morphine] Allergy (Mild, Verified 08/24/18 19:50) Hallucinations oxycodone HCl [From Percocet] Allergy (Mild, Verified 08/24/18 19:50) Hallucinations ibuprofen Allergy (Verified 08/24/18 19:50) naproxen Allergy (Verified 08/24/18 19:50) oxycodone Allergy (Verified 08/24/18 19:50) Past Medical History - General Information source: Patient, Parent - Social History Smoking Status: Unknown if Ever Smoked Chew tobacco use (# tins/day): No Frequency of alcohol use: None Drug Abuse: None Family History: Arthritis, CVA, DM, Hypertension, Reviewed & Not Pertinent, Thyroid Disfunction Patient has suicidal ideation: No Patient has homicidal ideation: No - Past Medical History Cardiac Medical History: Reports: Hx Hypercholesterolemia, Hx Hypertension - medicated Pulmonary Medical History: Reports: Hx Asthma - medicated prn, Hx Bronchitis Neurological Medical History: Reports: Hx Migraine, Hx Seizures Endocrine Medical History: Reports: Hx Hypothyroidism Renal/ Medical History: Denies: Hx Peritoneal Dialysis GI Medical History: Reports: Hx Colonoscopy, Hx Endoscopy Musculoskeletal Medical History: Reports Hx Arthritis, Reports Hx Musculoskeletal Deformity, Reports Hx Musculoskeletal Trauma Psychiatric Medical History: Denies: Hx Depression Past Surgical History: Reports: Hx Cholecystectomy - Immunizations Immunizations up to date: Yes Hx Diphtheria, Pertussis, Tetanus Vaccination: Yes Review of Systems - Review of Systems Constitutional: No symptoms reported EENT: No symptoms reported Cardiovascular: No symptoms reported Respiratory: No symptoms reported Gastrointestinal: No symptoms reported Genitourinary: No symptoms reported Female Genitourinary: No symptoms reported Musculoskeletal: No symptoms reported Skin: Lesions, Other - Bruise to the left posterior arm Hematologic/Lymphatic: No symptoms reported Neurological/Psychological: No symptoms reported -: Yes All other systems reviewed and negative Physical Exam - Vital signs Vitals: Temp Pulse Resp BP Pulse Ox 97.2 F 64 20 118/57 L 99 08/24/18 20:38 08/24/18 20:38 08/24/18 20:38 08/24/18 20:38 08/24/18 20:38 Interpretation: Normal - Notes Notes: PHYSICAL EXAMINATION: GENERAL: Well-appearing, well-nourished and in no acute distress. HEAD: Atraumatic, normocephalic. LUNGS: Breath sounds clear to auscultation bilaterally and equal. No wheezes rales or rhonchi. HEART: Regular rate and rhythm without murmurs Musculoskeletal: Examination patient's area of concern is her left posterior upper arm. There is approximately a 6 cm long by about 4 cm wide discoloration/ecchymosis area. Area. Palpation of the area shows her to be a nodule underneath the appears to be a previous ruptured vein. Patient has some mild tenderness to palpation but no severe pain or discomfort. She has full range of motion of the left shoulder and arm area. NEUROLOGICAL: Normal speech, normal gait. Normal sensory, motor exams PSYCH: Normal mood, normal affect. SKIN: As stated the area of concern is the left posterior upper arm the area has some mild tenderness to palpation but discoloration is more significant but landing to being a long healing bruised area. Course - Re-evaluation Re-evalutation: 08/24/18 22:28 Patient has been seen in the emergency room 1 April after sustaining a fall in a grocery store having x-rays done which were negative approximately a week later patient return to ER for same presentation and was sent out on some Arthrotec cream and I believe lidocaine patches. Since that point time she is been back to ER multiple times for facial numbness and the couple other complaints. My physical exam of this shows there to be a lingering bruise on the back of her arm that has no new traumatic events to it. Patient was asked if she is talked to her doctor about it she stated he has multiple times and he told her it was a bruise as well. Given that there is no significant pain and there is no restriction of range of motion and patient looks healthy with normal vital signs I do not believe there is any necessity in treating this with any diagnostic first processes. I have informed patient and family that this is just a bruise is going to go away eventually but is going to take time. I have instructed him to follow-up with her primary care doctor for this reason. The father seems to be slightly upset with the patient because he indicated that he is upset that the [facility] here told her to get checked out and she is using Medicare to do so. He feels like they should be paying for it. I informed him that I do not get into the logistics of when people fall and why they should, or if they should see you I am here to treat the condition. It is not for me to air turning machine feeder who is at fault. - Vital Signs Vital signs: Temp Pulse Resp BP Pulse Ox 97.2 F 64 20 118/57 L 99 08/24/18 20:38 08/24/18 20:38 08/24/18 20:38 08/24/18 20:38 08/24/18 20:38 Discharge - Discharge Clinical Impression: Traumatic ecchymosis of left upper arm Qualifiers: Encounter type: sequela Qualified Code(s): S40.022S - Contusion of left upper arm, sequela Condition: Stable Disposition: HOME, SELF-CARE Instructions: Contusion ([facility]), Ice & Elevation ([facility]) Additional Instructions: As I discussed with you this is a deep bruise and I can palpate a blood vessel that I believe has ruptured underneath the area there. This probably resulted from your fall he sustained at the grocery store in April of this year. At least this is the same generalized area as described along with the shoulder. This is far enough out that is not going to bother you and should not be giving you any severe amounts of pain Tylenol should be sufficient enough to handle the discomfort. You have indicated that you discuss this with your primary care doctor and they also agree that it is a bruise therefore is going to take time for to go away. You may continue to use either moist heat or ice whichever feels better. The Tylenol will alleviate some discomfort. Should you have any concerns or problems you can always return to ER for a recheck. Forms: Return to Work Referrals: BRENT PORTILLO, BILLET ASSEMBLER [Primary Care Provider] - Follow up as needed
[2018-08-24 22:53] VITALS: BP 145/101
== END 2018-08-24 22:53 | disposition home or self-care (01) ==
LOC: ER 19:45
DX: S40.022S Contusion of left upper arm, sequela (principal); M79.602 Pain in left arm; X58.XXXS Exposure to other specified factors, sequela; I10 Essential (primary) hypertension; Z79.899 Other long term (current) drug therapy; J45.909 Unspecified asthma, uncomplicated
CPT/HCPCS: 99283

== ENCOUNTER 2018-11-20 12:51 | Emergency (ER) | payer MEDICARE, MEDICAID ==
[2018-11-20 13:03] VITALS: BP 120/63
--- NOTE | 2018-11-20 13:47 | RADIOLOGY REPORT (SQ) ---
EXAM DESCRIPTION: KNEE BILATERAL 1-2 VIEWS COMPLETED DATE/TIME: 11/20/2018 1:38 pm REASON FOR STUDY: fall, bilateral knee pain COMPARISON: None. NUMBER OF VIEWS: Two views. TECHNIQUE: AP and lateral bilateral knees. LIMITATIONS: None. FINDINGS: MINERALIZATION: Normal. RIGHT KNEE BONES: No acute fracture. No worrisome bone lesions. MEDIAL COMPARTMENT: No significant osteophytes. No joint space narrowing. No chondrocalcinosis. LATERAL COMPARTMENT: No significant osteophytes. No joint space narrowing. No chondrocalcinosis. PATELLOFEMORAL COMPARTMENT: Posterior patellar and trochlear osteophytes. Joint space narrowing. No chondrocalcinosis. LEFT KNEE BONES: No acute fracture. No worrisome bone lesions. MEDIAL COMPARTMENT: No significant osteophytes. No joint space narrowing. No chondrocalcinosis. LATERAL COMPARTMENT: No significant osteophytes. No joint space narrowing. No chondrocalcinosis. PATELLOFEMORAL COMPARTMENT: Posterior patellar and trochlear osteophytes are present, smaller than o n the right side. No joint space narrowing. No chondrocalcinosis. IMPRESSION: Bilateral patellofemoral degenerative joint changes, greater on the right. TECHNICAL DOCUMENTATION: JOB ID: [id number] [email or web address]- All Rights Reserved Reading location - IP/workstation name: [email or web address]
[2018-11-20] MEDS ORDERED: ACETAMINOPHEN 325 MG TABLET PO ONE (14:20)
--- NOTE | 2018-11-20 14:21 | ER Document Report ---
HPI - HPI Time Seen by Provider: 11/20/18 14:19 Pain Level: 2 Notes: This is a 63-year-old female presenting to the emergency department chief complaint of bilateral knee pain after sustaining a mechanical fall. Patient reports she was walking through a store when she fell forward after tripping over a rug. She states she landed onto both of her knees. She reports bilateral knee pain. She denies striking her head or any other injuries. - REPRODUCTIVE Reproductive: DENIES: : Past Medical History - General Information source: Patient - Social History Smoking Status: Never Smoker Frequency of alcohol use: None Drug Abuse: None Family History: Arthritis, CVA, DM, Hypertension, Reviewed & Not Pertinent, Thyroid Disfunction - Past Medical History Cardiac Medical History: Reports: Hx Hypercholesterolemia, Hx Hypertension - medicated Pulmonary Medical History: Reports: Hx Asthma - medicated prn, Hx Bronchitis Neurological Medical History: Reports: Hx Migraine, Hx Seizures Endocrine Medical History: Reports: Hx Hypothyroidism Renal/ Medical History: Denies: Hx Peritoneal Dialysis GI Medical History: Reports: Hx Colonoscopy, Hx Endoscopy Musculoskeletal Medical History: Reports Hx Arthritis, Reports Hx Musculoskeletal Deformity, Reports Hx Musculoskeletal Trauma Psychiatric Medical History: Denies: Hx Depression Past Surgical History: Reports: Hx Cholecystectomy - Immunizations Immunizations up to date: Yes Hx Diphtheria, Pertussis, Tetanus Vaccination: Yes Vertical Provider Document - CONSTITUTIONAL Notes: PHYSICAL EXAMINATION: GENERAL: Well-appearing, well-nourished and in no acute distress. HEAD: Atraumatic, normocephalic. EYES: Pupils equal round extraocular movements intact, conjunctiva are normal. ENT: Nares patent NECK: Normal range of motion LUNGS: No respiratory distress Musculoskeletal: Normal range of motion to bilateral knees, no crepitus or deformity on palpation, mild swelling bilaterally without erythema or ecchymosis. NEUROLOGICAL: Normal speech, normal gait. PSYCH: Normal mood, normal affect. SKIN: Warm, Dry, normal turgor, no rashes or lesions noted. - INFECTION CONTROL TRAVEL OUTSIDE OF THE [place] IN LAST 30 DAYS: No Course - Re-evaluation Re-evalutation: Knee X-Ray 11/20/18 13:25 IMPRESSION: Bilateral patellofemoral degenerative joint changes, greater on the right. Knee x-rays were negative for acute fracture or dislocation as outlined above. Test results were discussed with patient who was relieved. Patient was given home treatment remedies to include ice, elevate, rest and compress. Patient verbalizes understanding and agreement with this plan. The patient's emergency department workup and current diagnosis were explained to the patient and or family. Follow-up instructions were provided. Medications if prescribed were discussed. Instructions for when to return to the emergency department including specific worrisome symptoms were discussed with the patient and/or family. - Vital Signs Vital signs: Temp Pulse Resp BP Pulse Ox 98.2 F 70 18 120/63 97 11/20/18 13:02 11/20/18 13:02 11/20/18 13:02 11/20/18 13:02 11/20/18 13:02 Discharge - Discharge Clinical Impression: Bilateral knee pain Qualifiers: Chronicity: acute Qualified Code(s): M25.561 - Pain in right knee Condition: Stable Disposition: HOME, SELF-CARE Additional Instructions: The x-rays taken today of both her knees were negative for any fracture or dislocation. Please apply ice to the area of concern, elevate as much as possible. Take it easy over the next 1 to 2 days. A copy of your x-rays was given to you in case you need to follow-up with your primary care provider. You may safely take Tylenol for the pain. Return to the emergency department for any new or worsening symptoms. Referrals: BRENT PORTILLO NP [Primary Care Provider] - Follow up as needed
== END 2018-11-20 14:20 | disposition home or self-care (01) ==
LOC: ER 12:51
DX: M25.561 Pain in right knee (principal); M25.562 Pain in left knee; W01.0XXA Fall on same level from slipping, tripping and stumbling without subsequent striking against object, initial encounter; Y92.89 Other specified places as the place of occurrence of the external cause; E78.00 Pure hypercholesterolemia, unspecified; I10 Essential (primary) hypertension; Z90.49 Acquired absence of other specified parts of digestive tract
CPT/HCPCS: 73560; A9270; 99283

== ENCOUNTER 2018-12-24 15:03 | Emergency (ER) | payer MEDICARE, MEDICAID ==
--- NOTE | 2018-12-24 15:25 | ER Document Report ---
ED Medical Screen (RME) - General Chief Complaint: Numbness of Face Stated Complaint: DIZZY/HEADACHE Time Seen by Provider: 12/24/18 15:20 Primary Care Provider: BRENT PORTILLO, SHAYY [Primary Care Provider] - Follow up as needed Mode of Arrival: Ambulatory Information source: Patient Notes: This 63-year-old female presents emergency department with complaints of feeling dizzy and the numbness in her face and weak since yesterday at around noon. Reports history of asthma. Denies history of stroke cardiac disease. Denies fever vomiting diarrhea. Patient speech seems sluggish to me but her friend at her side reports she is talking normal. I have greeted and performed a rapid initial assessment of this patient. A comprehensive ED assessment and evaluation of the patient, analysis of test results and completion of the medical decision making process will be conducted by additional ED providers. [place]. TRAVEL OUTSIDE OF THE [place] IN LAST 30 DAYS: No - Related Data Allergies/Adverse Reactions: metaxalone [From Skelaxin] Allergy (Mild, Verified 08/24/18 19:50) Hallucinations morphine [Morphine] Allergy (Mild, Verified 08/24/18 19:50) Hallucinations oxycodone HCl [From Percocet] Allergy (Mild, Verified 08/24/18 19:50) Hallucinations ibuprofen Allergy (Verified 08/24/18 19:50) naproxen Allergy (Verified 08/24/18 19:50) oxycodone Allergy (Verified 08/24/18 19:50) Past Medical History - Past Medical History Cardiac Medical History: Reports: Hx Hypercholesterolemia, Hx Hypertension - medicated Pulmonary Medical History: Reports: Hx Asthma - medicated prn, Hx Bronchitis Neurological Medical History: Reports: Hx Migraine, Hx Seizures Endocrine Medical History: Reports: Hx Hypothyroidism Renal/ Medical History: Denies: Hx Peritoneal Dialysis GI Medical History: Reports: Hx Colonoscopy, Hx Endoscopy Musculoskeltal Medical History: Reports Hx Arthritis, Reports Hx Musculoskeletal Deformity, Reports Hx Musculoskeletal Trauma Psychiatric Medical History: Denies: Hx Depression Past Surgical History: Reports: Hx Cholecystectomy - Immunizations Immunizations up to date: Yes Hx Diphtheria, Pertussis, Tetanus Vaccination: Yes Physical Exam - Vital signs Vitals: Temp Pulse Resp BP Pulse Ox 98.6 F 69 16 129/63 H 98 12/24/18 15:14 12/24/18 15:14 12/24/18 15:14 12/24/18 15:14 12/24/18 15:14 Course - Vital Signs Vital signs: Temp Pulse Resp BP Pulse Ox 98.6 F 69 16 129/63 H 98 12/24/18 15:14 12/24/18 15:14 12/24/18 15:14 12/24/18 15:14 12/24/18 15:14 Doctor's Discharge - Discharge Referrals: BRENT PORTILLO, [employer] [Primary Care Provider] - Follow up as needed
--- NOTE | 2018-12-24 16:07 | RADIOLOGY REPORT (SQ) ---
EXAM DESCRIPTION: CT HEAD WITHOUT COMPLETED DATE/TIME: 12/24/2018 3:41 pm REASON FOR STUDY: dizzy numbness weak COMPARISON: None. TECHNIQUE: Axial images acquired through the brain without intravenous contrast. Images reviewed wi th bone, brain and subdural windows. Additional sagittal and coronal reconstructions were generated. Images stored on PACS. All CT scanners at this facility use dose modulation, iterative reconstruction, and/or weight based d osing when appropriate to reduce radiation dose to as low as reasonably achievable (ALARA). [facility]: Dose Right [facility]: CareDose [facility]: Dose Right [facility]: Teradose 4D [facility]: [employer] RADIATION DOSE: CT Rad equipment meets quality standard of care and radiation dose reduction techniq ues were employed. CTDIvol: 53.2 mGy. DLP: 937 mGy-cm. mGy. LIMITATIONS: None. FINDINGS: VENTRICLES: Normal size and contour. Absent septum pellucidum, an anatomic variant. CEREBRUM: No masses. No hemorrhage. No midline shift. No evidence for acute infarction. Normal gra y/white matter differentiation. No areas of low density in the white matter. CEREBELLUM: No masses. No hemorrhage. No alteration of density. No evidence for acute infarction. EXTRAAXIAL SPACES: No fluid collections. No masses. ORBITS AND GLOBE: No intra- or extraconal masses. Normal contour of globe without masses. CALVARIUM: No fracture. PARANASAL SINUSES: No fluid or mucosal thickening. SOFT TISSUES: No mass or hematoma. OTHER: No other significant finding. IMPRESSION: NORMAL BRAIN CT WITHOUT CONTRAST. EVIDENCE OF ACUTE STROKE: NO. COMMENT: Quality ID # [id number]: Final reports with documentation of one or more dose reduction techniques (e.g., Automated exposure control, adjustment of the mA and/or kV according to patient size, use of iterative reconstruction technique) TECHNICAL DOCUMENTATION: JOB ID: [id number] [employer]- All Rights Reserved Reading location - IP/workstation name: [email or web address]
--- NOTE | 2018-12-24 16:47 | RADIOLOGY REPORT (SQ) ---
EXAM DESCRIPTION: CHEST SINGLE VIEW COMPLETED DATE/TIME: 12/24/2018 4:29 pm REASON FOR STUDY: dizzy numbness weak COMPARISON: None. EXAM PARAMETERS: NUMBER OF VIEWS: One view. TECHNIQUE: Single frontal radiographic view of the chest acquired. RADIATION DOSE: NA LIMITATIONS: None. FINDINGS: LUNGS AND PLEURA: No opacities, masses or pneumothorax. No pleural effusion. MEDIASTINUM AND HILAR STRUCTURES: No masses. Contour normal. HEART AND VASCULAR STRUCTURES: Heart normal in size. Normal vasculature. BONES: No acute findings. HARDWARE: None in the chest. OTHER: No other significant finding. IMPRESSION: NO ACUTE RADIOGRAPHIC FINDING IN THE CHEST. TECHNICAL DOCUMENTATION: JOB ID: [id number] [place]-72 2010 [employer]- All Rights Reserved Reading location - IP/workstation name: [employer] ([employer])
[2018-12-24 16:54] LABS: ABSOLUTE LYMPHOCYTES (AUTO) 1.2 10^3/uL (0.5-4.7); ABSOLUTE MONOCYTES (AUTO) 0.3 10^3/uL (0.1-1.4); ABSOLUTE NEUT (AUTO) 1.7 10^3/uL (1.7-8.2); BASOPHILS % (AUTO) 0.4 % (0-2); EOSINOPHILS % (AUTO) 0.9 % (0-6); HEMATOCRIT 36.5 % (36.0-47.0); HEMOGLOBIN 11.9 g/dL (12.0-15.5); LYMPHOCYTES % (AUTO) 36.8 % (13-45); MEAN CORPUSCULAR HEMOGLOBIN 28.9 pg (27.0-33.4); MEAN CORPUSCULAR HGB CONC 32.5 g/dL (32.0-36.0); MEAN CORPUSCULAR VOLUME 89 fl (80-97); MONOCYTES % (AUTO) 8.6 % (3-13); PLATELET COUNT 177 10^3/uL (150-450); RED BLOOD COUNT 4.11 10^6/uL (3.72-5.28); SEGMENTED NEUTROPHILS % (AUTO) 53.3 % (42-78); TOTAL CELLS COUNTED % (AUTO) 100 %; WHITE BLOOD COUNT 3.2 10^3/uL (4.0-10.5)
[2018-12-24 16:57] LABS: INTERNATIONAL RATION (INR) 1.14; PROTHROMBIN TIME 14.7 SEC (11.4-15.4)
[2018-12-24 16:58] LABS: PARTIAL THROMBOPLASTIN TIME 33.2 SEC (23.5-35.8)
[2018-12-24] MEDS ORDERED: MECLIZINE HCL 25 MG TABLET PO ONE (17:03)
[2018-12-24 17:07] LABS: ALBUMIN 3.7 g/dL (3.5-5.0); ALKALINE PHOSPHATASE 104 U/L (38-126); ANION GAP 5 (5-19); ASPARTATE AMINO TRANSFERASE 16 U/L (14-36); BILIRUBIN,DIRECT 0.1 mg/dL (0.0-0.4); BILIRUBIN,TOTAL 0.1 mg/dL (0.2-1.3); BLOOD UREA NITROGEN 11 mg/dL (7-20); CALCIUM 9.2 mg/dL (8.4-10.2); CARBON DIOXIDE 32 mmol/L (22-30); CHLORIDE 102 mmol/L (98-107); CREATINE KINASE 52 U/L (30-135); GLUCOSE 86 mg/dL (75-110); POTASSIUM 4.3 mmol/L (3.6-5.0); TOTAL PROTEIN 6.2 g/dL (6.3-8.2)
[2018-12-24 17:33] LABS: CREATINE KINASE MB < 0.22 ng/mL (<4.55); TROPONIN I < 0.012 ng/mL
--- NOTE | 2018-12-24 17:47 | EKG REPORT ---
SEVERITY:- NORMAL ECG - SINUS RHYTHM : Confirmed by: Dennis Anders MD 24-Dec-2018 17:46:11
--- NOTE | 2018-12-24 18:47 | ER Document Report ---
ED Neuro Symptoms/Deficit - General Chief Complaint: Numbness of Face Stated Complaint: DIZZY/HEADACHE Time Seen by Provider: 12/24/18 15:20 Primary Care Provider: BRENT PORTILLO NP [Primary Care Provider] - Follow up as needed Mode of Arrival: Ambulatory TRAVEL OUTSIDE OF THE [place] IN LAST 30 DAYS: No - HPI Associated symptoms: Dizzy. denies: Chills, Neck pain, Seizure Notes: This is a 63-year-old female who presents today with a complaint of intermittent episodes of dizziness for the past 2 months. This episode started a couple days ago. Patient describes a spinning sensation. Associated symptoms include tinnitus. She denies any visual changes. She denies any headache. She denies any weakness or speech difficulty. He has no focal neurologic complaints. Patient states that she has had multiple episodes of this over the past few months. She also states that she feels like her call has been darker over the past several months. - Related Data Allergies/Adverse Reactions: metaxalone [From Skelaxin] Allergy (Mild, Verified 08/24/18 19:50) Hallucinations morphine [Morphine] Allergy (Mild, Verified 08/24/18 19:50) Hallucinations oxycodone HCl [From Percocet] Allergy (Mild, Verified 08/24/18 19:50) Hallucinations ibuprofen Allergy (Verified 08/24/18 19:50) naproxen Allergy (Verified 08/24/18 19:50) oxycodone Allergy (Verified 08/24/18 19:50) Past Medical History - General Information source: Patient - Social History Smoking Status: Never Smoker Chew tobacco use (# tins/day): No Frequency of alcohol use: None Drug Abuse: None Family History: Arthritis, CVA, DM, Hypertension, Reviewed & Not Pertinent, Thyroid Disfunction Patient has suicidal ideation: No Patient has homicidal ideation: No - Past Medical History Cardiac Medical History: Reports: Hx Hypercholesterolemia, Hx Hypertension - medicated Pulmonary Medical History: Reports: Hx Asthma - medicated prn, Hx Bronchitis Neurological Medical History: Reports: Hx Migraine, Hx Seizures Endocrine Medical History: Reports: Hx Hypothyroidism Renal/ Medical History: Denies: Hx Peritoneal Dialysis GI Medical History: Reports: Hx Colonoscopy, Hx Endoscopy Musculoskeletal Medical History: Reports Hx Arthritis, Reports Hx Musculoskeletal Deformity, Reports Hx Musculoskeletal Trauma Psychiatric Medical History: Denies: Hx Depression Past Surgical History: Reports: Hx Cholecystectomy - Immunizations Immunizations up to date: Yes Hx Diphtheria, Pertussis, Tetanus Vaccination: Yes Review of Systems - Review of Systems Cardiovascular: Dizziness. denies: Chest pain, Palpitations, Heart racing, Syncope Gastrointestinal: denies: Abdominal pain, Diarrhea, Nausea Neurological/Psychological: denies: Depression, Anxiety, Weakness, Speech impairment, Numbness -: Yes All other systems reviewed and negative Physical Exam - Vital signs Vitals: Temp Pulse Resp BP Pulse Ox 98.6 F 69 16 129/63 H 98 12/24/18 15:14 12/24/18 15:14 12/24/18 15:14 12/24/18 15:14 12/24/18 15:14 - General General appearance: Appears well, Alert - HEENT Head: Normocephalic - There is reproducible vertigo and fatigable horizontal nystagmus., Atraumatic Eyes: Normal Pupils: PERRL Ears: Normal External canal: Normal Tympanic membrane: Normal - Respiratory Respiratory status: No respiratory distress Chest status: Nontender Breath sounds: Normal Chest palpation: Normal - Cardiovascular Rhythm: Regular Heart sounds: Normal auscultation Murmur: No - Abdominal Inspection: Normal Distension: No distension Bowel sounds: Normal Tenderness: Nontender Organomegaly: No organomegaly - Neurological Neuro grossly intact: Yes Cognition: Normal Orientation: AAOx4 Tho Coma Scale Eye Opening: Spontaneous Tho Coma Scale Verbal: Oriented Mcfarland Coma Scale Motor: Obeys Commands Tho Coma Scale Total: 15 Speech: Normal Cranial nerves: Other - There is reproducible vertigo and fatigable horizontal nystagmus.. No: Facial palsy Cerebellar coordination: Heel-berg, Finger-nose rhombey, Rapid alt. movements Motor strength normal: LUE, RUE, LLE, RLE Sensory: Normal - Skin Skin Temperature: Warm Skin Moisture: Dry Skin Color: Normal Course - Re-evaluation Re-evalutation: 12/24/18 18:46 Initial diagnosis includes benign positional vertigo versus labyrinthitis versus Mnire's disease versus intracranial mass. There is no clinical suspicion for acute CVA given intermittent symptoms for a couple of months. Will get CT scan to rule out any mass lesions. Will check electrolytes. With manage symptoms symptomatically.. 12/24/18 19:20 Patient reevaluated patient feels much better after meclizine. Labs and imaging reviewed and discussed. Follow-up discussed with patient. She is stable for discharge. We will put her on meclizine. - Vital Signs Vital signs: Temp Pulse Resp BP Pulse Ox 98.6 F 69 16 129/63 H 98 12/24/18 15:14 12/24/18 15:14 12/24/18 15:14 12/24/18 15:14 12/24/18 15:14 - Laboratory Result Diagrams: 12/24/18 16:33 12/24/18 16:33 Laboratory results interpreted by me: 12/24/18 12/24/18 16:33 16:33 WBC 3.2 L Hgb 11.9 L Carbon Dioxide 32 H Total Bilirubin 0.1 L Total Protein 6.2 L Discharge - Discharge Clinical Impression: Vertigo Condition: Stable Disposition: HOME, SELF-CARE Instructions: Vertigo ([facility]), Dizziness ([facility]) Prescriptions: Meclizine HCl [Antivert 25 mg Tablet] 25 mg PO TID PRN #21 tablet PRN Reason: Referrals: BRENT PORTILLO, [employer] [Primary Care Provider] - Follow up as needed
[2018-12-24 19:38] VITALS: BP 147/69
== END 2018-12-24 19:44 | disposition home or self-care (01) ==
LOC: ER 15:03
DX: R42 Dizziness and giddiness (principal); H93.19 Tinnitus, unspecified ear; H55.00 Unspecified nystagmus; I10 Essential (primary) hypertension; J45.909 Unspecified asthma, uncomplicated; Z88.8 Allergy status to other drugs, medicaments and biological substances; Z88.5 Allergy status to narcotic agent
CPT/HCPCS: 93005; 99284; 36415; 82553; 82550; 85025; 85610; 85730; 80053; 84484; 71045; 70450; 93010; A9270

== ENCOUNTER 2018-12-28 23:12 | Emergency (ER) | payer MEDICARE, MEDICAID ==
[2018-12-29] MEDS ORDERED: NORMAL SALINE 500 ML IV ONE (00:02)
--- NOTE | 2018-12-29 00:08 | ER Document Report ---
ED General - General Chief Complaint: Abdominal Cramping Stated Complaint: FALL, HEAD PAIN Time Seen by Provider: 12/28/18 23:50 Primary Care Provider: BRENT PORTILLO, [employer] [Primary Care Provider] - Follow up as needed TRAVEL OUTSIDE OF THE [place] IN LAST 30 DAYS: No - HPI Notes: 63-year-old female presents with fall, mild headache. Patient states he was going to bathroom yesterday when she had fallen, he just got over to use the toilet. On Tuesday she had some loose stool. No persistent diarrhea. Minimal headache, thinks she may have hit her right frontal forehead. No vomiting. No numbness or tingling, however, she does have chronic facial numbness which is been ongoing and she sees a neurologist and is being worked up. Review of her records show frequent visits for falls and other complaints. No use of anticoagulants. Moderate intensity, gradual onset, nonradiating. No other modifying factors, no other associated symptoms, no other provocative or palli ative factors. - Related Data Allergies/Adverse Reactions: metaxalone [From Skelaxin] Allergy (Mild, Verified 08/24/18 19:50) Hallucinations morphine [Morphine] Allergy (Mild, Verified 08/24/18 19:50) Hallucinations oxycodone HCl [From Percocet] Allergy (Mild, Verified 08/24/18 19:50) Hallucinations ibuprofen Allergy (Verified 08/24/18 19:50) naproxen Allergy (Verified 08/24/18 19:50) oxycodone Allergy (Verified 08/24/18 19:50) Past Medical History - Social History Smoking Status: Never Smoker Chew tobacco use (# tins/day): No Frequency of alcohol use: None Drug Abuse: None Family History: Arthritis, CVA, DM, Hypertension, Reviewed & Not Pertinent, Thyroid Disfunction Patient has suicidal ideation: No Patient has homicidal ideation: No - Past Medical History Cardiac Medical History: Reports: Hx Hypercholesterolemia, Hx Hypertension - medicated Pulmonary Medical History: Reports: Hx Asthma - medicated prn, Hx Bronchitis Neurological Medical History: Reports: Hx Migraine, Hx Seizures Endocrine Medical History: Reports: Hx Hypothyroidism Renal/ Medical History: Denies: Hx Peritoneal Dialysis GI Medical History: Reports: Hx Colonoscopy, Hx Endoscopy Musculoskeletal Medical History: Reports Hx Arthritis, Reports Hx Musculosk eletal Deformity, Reports Hx Musculoskeletal Trauma Psychiatric Medical History: Denies: Hx Depression Past Surgical History: Reports: Hx Cholecystectomy - Immunizations Immunizations up to date: Yes Hx Diphtheria, Pertussis, Tetanus Vaccination: Yes Review of Systems - Review of Systems Notes: Review of systems as in the history of present illness, otherwise negative x 10 systems. Physical Exam - Vital signs Vitals: Temp Pulse Resp BP Pulse Ox 98.6 F 73 16 135/75 H 98 12/28/18 23:17 12/28/18 23:17 12/28/18 23:17 12/28/18 23:17 12/28/18 23:17 - Notes Notes: General: Well developed . HEENT: Normocephalic, atraumatic. Pupils equal round reactive to light. No JVD. I am unable to see any significant trauma about the head from her fall Chest: No trauma. Respiratory: Good air exchange, normal excursion. Cardiac: Regular rhythm. No murmurs or gallops. Abdomen: Soft, benign. Nondistended. Nontender. Back: No asymmetry or gross abnormality. Motor: Grossly normal power and tone. Neurologic: Alert, nonfocal. Cranial nerves II-12 are intact. Sensation intact. Vascular: Well perfused. Normal peripheral pulses. Skin: No petechiae or purpura. Course - Re-evaluation Re-evalutation: 12/29/18 00:08 This is an elderly female presents status post fall/syncope, unclear etiology, she is over 24 hours out now. The arrhythmia is possible, this is happened multiple times in the past and she has been worked up. She has no external evidence of head trauma, I think is relatively low risk for intracranial bleed. At this point we will proceed with basic metabolic and laboratory evaluation, EKG, x-ray, serial exams and reassess. 12/29/18 03:08 Patient had an extended stay due to nursing difficulty with obtaining IV access and blood. Ultimately, laboratories show unremarkable CBC and chemistries. Some bacteriuria noted in the urine but she is otherwise asymptomatic and we will follow culture. Patient is watched for telemetry monitoring with no recurrence of arrhythmia. She has been in the ED for an extended period of time and no evidence of arrhythmia. Given that this occurred over 24 hours ago, I think the patient is safe for discharge home. Will follow with the primary carephysician tomorrow, return if worsening. Take is resolved, no evidence of acute injury at this time. - Vital Signs Vital signs: Temp Pulse Resp BP Pulse Ox 98.6 F 71 16 135/75 H 98 12/28/18 23:26 12/28/18 23:26 12/28/18 23:26 12/28/18 23:26 12/28/18 23:26 - Laboratory Result Diagrams: 12/29/18 02:15 12/29/18 02:15 Laboratory results interpreted by me: 12/29/18 12/29/18 12/29/18 02:15 02:15 02:20 WBC 3.8 L Hgb 11.7 L Hct 35.6 L RDW 14.5 H Sodium 136.2 L Ur Leukocyte Esterase SMALL H Discharge - Discharge Clinical Impression: Minor head injury Qualifiers: Encounter type: initial encounter Qualified Code(s): S09.90XA - Unspecified injury of head, initial encounter Syncope Qualifiers: Encounter type: initial encounter Condition: Stable Disposition: HOME, SELF-CARE Instructions: Head Injury Precautions ([facility]), Syncopal Episode ([facility]) Referrals: BRENT PORTILLO, [employer] [facility] [Primary Care Provider] - Follow up tomorrow
--- NOTE | 2018-12-29 01:16 | RADIOLOGY REPORT (SQ) ---
EXAM DESCRIPTION: [facility]: XR CHEST 1 VIEW CLINICAL HISTORY: 63 years Female, fall COMPARISON: 12/24/2018 FINDINGS: Lungs are clear, with no focal infiltrate, pneumothorax, or pleural effusion. Heart size is difficult to assess on this apical lordotic positioning. No mediastinal shift. No superior mediastinal widening. Bony structures are unremarkable. IMPRESSION: 1. No acute pulmonary findings.
[2018-12-29 02:30] LABS: ABSOLUTE MONOCYTES (AUTO) 0.3 10^3/uL (0.1-1.4); ABSOLUTE NEUT (AUTO) 2.5 10^3/uL (1.7-8.2); BASOPHILS % (AUTO) 0.3 % (0-2); EOSINOPHILS % (AUTO) 0.9 % (0-6); HEMATOCRIT 35.6 % (36.0-47.0); HEMOGLOBIN 11.7 g/dL (12.0-15.5); LYMPHOCYTES % (AUTO) 25.7 % (13-45); MEAN CORPUSCULAR HEMOGLOBIN 28.8 pg (27.0-33.4); MEAN CORPUSCULAR HGB CONC 32.8 g/dL (32.0-36.0); MEAN CORPUSCULAR VOLUME 88 fl (80-97); MONOCYTES % (AUTO) 8.7 % (3-13); PLATELET COUNT 159 10^3/uL (150-450); RED BLOOD COUNT 4.06 10^6/uL (3.72-5.28); RED CELL DISTRIBUTION WIDTH 14.5 % (11.5-14.0); SEGMENTED NEUTROPHILS % (AUTO) 64.4 % (42-78); TOTAL CELLS COUNTED % (AUTO) 100 %; WHITE BLOOD COUNT 3.8 10^3/uL (4.0-10.5)
[2018-12-29 02:39] LABS: ANION GAP 6 (5-19); BLOOD UREA NITROGEN 11 mg/dL (7-20); CALCIUM 9.2 mg/dL (8.4-10.2); CARBON DIOXIDE 27 mmol/L (22-30); CHLORIDE 103 mmol/L (98-107); GLUCOSE 98 mg/dL (75-110); POTASSIUM 4.2 mmol/L (3.6-5.0)
[2018-12-29 02:47] LABS: APPEARANCE,URINE SLIGHTLY-CLOUDY; BILIRUBIN,URINE NEGATIVE (NEGATIVE); COLOR,URINE YELLOW; GLUCOSE, URINE NEGATIVE (NEGATIVE); KETONES,URINE NEGATIVE (NEGATIVE); LEUKOCYTE ESTERASE,URINE SMALL (NEGATIVE); NITRITE,URINE NEGATIVE (NEGATIVE); PROTEIN,URINE NEGATIVE (NEGATIVE); URINE SPECIFIC GRAVITY 1.025; UROBILINOGEN,URINE NEGATIVE mg/dL (<2.0)
[2018-12-29 03:40] VITALS: BP 132/63
--- NOTE | 2018-12-30 09:13 | EKG REPORT ---
SEVERITY:- NORMAL ECG - SINUS RHYTHM : Confirmed by: Bhavin Bell 30-Dec-2018 09:13:14
== END 2018-12-29 03:38 | disposition home or self-care (01) ==
LOC: ER 23:12
DX: S09.90XA Unspecified injury of head, initial encounter (principal); R51 Headache; W19.XXXA Unspecified fall, initial encounter; Y93.89 Activity, other specified; Y92.002 Bathroom of unspecified non-institutional (private) residence as the place of occurrence of the external cause; R55 Syncope and collapse; R82.71 Bacteriuria; R20.0 Anesthesia of skin; I10 Essential (primary) hypertension; J45.909 Unspecified asthma, uncomplicated; Z88.8 Allergy status to other drugs, medicaments and biological substances; Z88.5 Allergy status to narcotic agent
CPT/HCPCS: 93005; 99284; 96360; 36415; 85025; 80048; 81001; 84484; 71045; 93010; J7040

== ENCOUNTER 2019-04-14 16:11 | Emergency (ER) | payer OTHER, MEDICARE, MEDICAID ==
[2019-04-14 16:28] VITALS: BP 144/74
[2019-04-14] MEDS ORDERED: ACETAMINOPHEN 325 MG TABLET PO ONE (16:32)
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
== END 2019-04-14 16:53 | disposition home or self-care (01) ==
LOC: ER 16:11
DX: M79.602 Pain in left arm (principal); V87.7XXA Person injured in collision between other specified motor vehicles (traffic), initial encounter; I10 Essential (primary) hypertension; J45.909 Unspecified asthma, uncomplicated
CPT/HCPCS: 99283

== ENCOUNTER 2019-05-21 13:23 | Emergency (ER) | payer MEDICARE, MEDICAID ==
[2019-05-21] MEDS ORDERED: ACETAMINOPHEN 325 MG TABLET PO ONE (14:28)
--- NOTE | 2019-05-21 14:31 | ER Document Report ---
ED Medical Screen (RME) - General Chief Complaint: Cough Stated Complaint: COUGH,CHEST PAIN Time Seen by Provider: 05/21/19 14:21 Primary Care Provider: BRENT PORTILLO AUXILIARY ENGINEER [Primary Care Provider] - Follow up as needed Notes: Patient is a 64-year-old female with a history of hypertension and seizures who presents emergency department with a chief complaint of cough. Patient reports developing a productive cough with clear sputum yesterday. Patient denies sick contacts. Patient reports she did receive influenza vaccine this year. Patient reports chills. Patient reports nasal congestion. Patient reports chest wall pain and upper back pain that started within the past 24 hours. She does report the cough started first. Patient reports that the chest wall pain is always there but is worse with cough and movement. TRAVEL OUTSIDE OF THE [place] IN LAST 30 DAYS: No - Related Data Allergies/Adverse Reactions: metaxalone [From Skelaxin] Allergy (Mild, Verified 05/21/19 14:21) Hallucinations morphine [Morphine] Allergy (Mild, Verified 05/21/19 14:21) Hallucinations oxycodone HCl [From Percocet] Allergy (Mild, Verified 05/21/19 14:21) Hallucinations ibuprofen Allergy (Verified 05/21/19 14:21) naproxen Allergy (Verified 05/21/19 14:21) oxycodone Allergy (Verified 05/21/19 14:21) Past Medical History - Past Medical History Cardiac Medical History: Reports: Hx Hypercholesterolemia, Hx Hypertension - medicated Pulmonary Medical History: Reports: Hx Asthma - medicated prn, Hx Bronchitis Neurological Medical History: Reports: Hx Migraine, Hx Seizures Endocrine Medical History: Reports: Hx Hypothyroidism Renal/ Medical History: Denies: Hx Peritoneal Dialysis GI Medical History: Reports: Hx Colonoscopy, Hx Endoscopy Musculoskeltal Medical History: Reports Hx Arthritis, Reports Hx Musculoskeletal Deformity, Reports Hx Musculoskeletal Trauma Psychiatric Medical History: Denies: Hx Depression Past Surgical History: Reports: Hx Cholecystectomy - Immunizations Immunizations up to date: Yes Hx Diphtheria, Pertussis, Tetanus Vaccination: Yes Physical Exam - Vital signs Vitals: Temp Pulse Resp BP Pulse Ox 100.2 F 72 19 153/76 H 100 05/21/19 13:39 05/21/19 13:39 05/21/19 13:39 05/21/19 13:39 05/21/19 13:39 - Cardiovascular Rhythm: Regular Heart sounds: Normal auscultation, S1 appreciated, S2 appreciated Course - Re-evaluation Re-evalutation: 05/21/19 14:31 Patient does have reproducible chest wall pain that is worse with palpation. Will obtain a EKG, chest x-ray and give Tylenol for low-grade temp in triage patient to be evaluated by provider in the back. I have greeted and performed a rapid initial assessment of this patient. A comprehensive ED assessment and evaluation of the patient, analysis of test results and completion of the medical decision making process will be conducted by additional ED providers. - Vital Signs Vital signs: Temp Pulse Resp BP Pulse Ox 100.2 F 72 19 153/76 H 100 05/21/19 13:39 05/21/19 13:39 05/21/19 13:39 05/21/19 13:39 05/21/19 13:39 Doctor's Discharge - Discharge Referrals: BRENT PORTILLO, AUXILIARY ENGINEER [Primary Care Provider] - Follow up as needed
--- NOTE | 2019-05-21 15:11 | RADIOLOGY REPORT (SQ) ---
EXAM DESCRIPTION: CHEST 2 VIEWS COMPLETED DATE/TIME: 05/21/2019 2:50 pm REASON FOR STUDY: cough, congestion, chest wall pain COMPARISON: AP view of the chest from 12/29/2018 EXAM PARAMETERS: NUMBER OF VIEWS: Two views. TECHNIQUE: PA and lateral views of the chest were obtained.. RADIATION DOSE: NA LIMITATIONS: none FINDINGS: LUNGS AND PLEURA: No consolidation, pleural effusion or pneumothorax. MEDIASTINUM AND HILAR STRUCTURES: No mediastinal or hilar contour abnormality. HEART AND VASCULAR STRUCTURES: The cardiac silhouette and pulmonary vasculature are within normal gonzalez its. BONES: No acute findings. HARDWARE: Cholecystectomy clips. OTHER: No other finding. IMPRESSION: Low inspiratory lung volumes without a superimposed acute cardiopulmonary process. TECHNICAL DOCUMENTATION: JOB ID: [id number] 2010 [employer]- All Rights Reserved Reading location - IP/workstation name: [email or web address]
--- NOTE | 2019-05-21 15:40 | ER Document Report ---
ED General - General Chief Complaint: Cough Stated Complaint: COUGH,CHEST PAIN Time Seen by Provider: 05/21/19 14:21 Primary Care Provider: BRENT PORTILLO YEAST SUPERVISOR [Primary Care Provider] - Follow up as needed Mode of Arrival: Ambulatory Information source: Patient TRAVEL OUTSIDE OF THE [place] IN LAST 30 DAYS: No - HPI Notes: Patient presents with 1 day of cough congestion and generalized body aches. States the symptom and constant. They have been moderate in intensity. They are worse with exertion and better with rest. They do radiate throughout her body. Her cough is been mainly nonproductive. She has not felt like she has had any fever. Some chills. No vomiting or diarrhea. - Related Data Allergies/Adverse Reactions: metaxalone [From Skelaxin] Allergy (Mild, Verified 05/21/19 14:21) Hallucinations morphine [Morphine] Allergy (Mild, Verified 05/21/19 14:21) Hallucinations oxycodone HCl [From Percocet] Allergy (Mild, Verified 05/21/19 14:21) Hallucinations ibuprofen Allergy (Verified 05/21/19 14:21) naproxen Allergy (Verified 05/21/19 14:21) oxycodone Allergy (Verified 05/21/19 14:21) Home Medications: [facility] Past Medical History - General Information source: Patient - Social History Smoking Status: Never Smoker Chew tobacco use (# tins/day): No Frequency of alcohol use: None Drug Abuse: None Family History: Arthritis, CVA, DM, Hypertension, Reviewed & Not Pertinent, Thyroid Disfunction Patient has suicidal ideation: No Patient has homicidal ideation: No - Past Medical History Cardiac Medical History: Reports: Hx Hypercholesterolemia, Hx Hypertension - medicated Pulmonary Medical History: Reports: Hx Asthma - medicated prn, Hx Bronchitis Neurological Medical History: Reports: Hx Migraine, Hx Seizures Endocrine Medical History: Reports: Hx Hypothyroidism Renal/ Medical History: Denies: Hx Peritoneal Dialysis GI Medical History: Reports: Hx Colonoscopy, Hx Endoscopy Musculoskeletal Medical History: Reports Hx Arthritis, Reports Hx Musculoskeletal Deformity, Reports Hx Musculoskeletal Trauma Psychiatric Medical History: Denies: Hx Depression Past Surgical History: Reports: Hx Cholecystectomy - Immunizations Immunizations up to date: Yes Hx Diphtheria, Pertussis, Tetanus Vaccination: Yes Review of Systems - Review of Systems Constitutional: Chills, Malaise Cardiovascular: denies: Chest pain, Palpitations Respiratory: Cough. denies: Short of breath -: Yes All other systems reviewed and negative Physical Exam - Vital signs Vitals: Temp Pulse Resp BP Pulse Ox 100.2 F 72 19 153/76 H 100 05/21/19 13:39 05/21/19 13:39 05/21/19 13:39 05/21/19 13:39 05/21/19 13:39 Interpretation: Hypertensive - General General appearance: Appears well, Alert - HEENT Head: Normocephalic, Atraumatic Eyes: Normal Pupils: PERRL - Respiratory Respiratory status: No respiratory distress Chest status: Nontender Breath sounds: Normal Chest palpation: Normal - Cardiovascular Rhythm: Regular Heart sounds: Normal auscultation Murmur: No - Abdominal Inspection: Normal Distension: No distension Bowel sounds: Normal Tenderness: Nontender Organomegaly: No organomegaly - Back Back: Normal, Nontender - Extremities General upper extremity: Normal inspection, Nontender, Normal color, Normal ROM, Normal temperature General lower extremity: Normal inspection, Nontender, Normal color, Normal ROM, Normal temperature, Normal weight bearing. No: Telma's sign - Neurological Neuro grossly intact: Yes Cognition: Normal Orientation: AAOx4 [place] Coma Scale Eye Opening: Spontaneous Tho Coma Scale Verbal: Oriented [place] Coma Scale Motor: Obeys Commands [place] Coma Scale Total: 15 Speech: Normal Motor strength normal: LUE, RUE, LLE, RLE Sensory: Normal - Psychological Associated symptoms: Normal affect, Normal mood - Skin Skin Temperature: Warm Skin Moisture: Dry Skin Color: Normal Course - Re-evaluation Re-evalutation: 05/21/19 15:38 Patient presents with 1 day of URI symptoms. She has a negative chest x-ray. She does have a low-grade fever. No evidence of failure or other significant pulmonary process. Her vital signs are stable otherwise. I do not feel that she would benefit from laboratory evaluation. - Vital Signs Vital signs: Temp Pulse Resp BP Pulse Ox 100.2 F 72 19 153/76 H 100 05/21/19 13:39 05/21/19 13:39 05/21/19 13:39 05/21/19 13:39 05/21/19 13:39 - Diagnostic Test Radiology reviewed: Image reviewed, Reports reviewed Discharge - Discharge Clinical Impression: URI (upper respiratory infection) Qualifiers: URI type: unspecified URI Qualified Code(s): J06.9 - Acute upper respiratory infection, unspecified Condition: Stable Disposition: HOME, SELF-CARE Instructions: Upper Respiratory Illness ([facility]) Prescriptions: Cefdinir 300 mg PO BID 7 Days #14 capsule Forms: Return to Work Referrals: BRENT PORTILLO YEAST SUPERVISOR [Primary Care Provider] - Follow up in 3-5 days
[2019-05-21 16:34] VITALS: BP 139/72
--- NOTE | 2019-05-21 18:34 | EKG REPORT ---
SEVERITY:- NORMAL ECG - SINUS RHYTHM : Confirmed by: Bhavin Bell 21-May-2019 18:34:13
== END 2019-05-21 16:37 | disposition home or self-care (01) ==
LOC: ER 13:23
DX: J06.9 Acute upper respiratory infection, unspecified (principal); R05 Cough; R50.9 Fever, unspecified; R53.81 Other malaise; I10 Essential (primary) hypertension; J45.909 Unspecified asthma, uncomplicated; Z88.8 Allergy status to other drugs, medicaments and biological substances; Z88.6 Allergy status to analgesic agent; Z88.5 Allergy status to narcotic agent
CPT/HCPCS: 93005; 99283; 71046; 93010; A9270